=== PATIENT | female | born 1990 | race African-American/Black ===

== ENCOUNTER 2016-08-01 21:34 | Emergency (ER) | payer MEDICAID ==
--- NOTE | 2016-08-01 23:47 | ER Document Report ---
ED Extremity Problem, Lower - General Chief Complaint: Leg Pain Stated Complaint: RIGHT ARM/RIGHT LEG PAIN Time seen by provider: 23:47 Mode of Arrival: Ambulatory Information source: Patient TRAVEL OUTSIDE OF THE [place] IN LAST 30 DAYS: No COUNTRY TRAVELED TO/FROM: [facility] - [facility] Patient complains to provider of: Pain, Swelling Location: Foot Occurred: This morning Onset/Duration: Gradual, Persistent Quality of pain: Achy Severity: Mild Pain Level: 2 Recent injury: No Exacerbated by: Walking Relieved by: Nothing Notes: Patient is a 25-year-old female presenting to the emergency room complaining of lower extremity swelling, and right arm pain that shoots up from the wrist, states he symptoms have been worsening throughout the day today, she denies any new activity, no chest pain or shortness of breath, no recent illness or injury , patient works at a [employer], performs repetitive motion with her hands for approximately 10 hours a day, she has been doing this for about a year now, she denies any specific injury, no history of similar symptoms previously - Related Data Allergies/Adverse Reactions: Sulfa (Sulfonamide Antibiotics) Allergy (Mild, Verified 09/21/15 21:32) unknown Past Medical History - General Information source: Patient - Social History Smoking Status: Current Every Day Smoker Family History: DM, Hypertension, Malignancy, Thyroid Disfunction Patient has suicidal ideation: No Patient has homicidal ideation: No - Past Medical History Cardiac Medical History: Reports: Hx Heart Murmur Neurological Medical History: Reports: Hx Seizures - as child Renal/ Medical History: Denies: Hx Peritoneal Dialysis Skin Medical History: Reports Hx Cellulitis, Reports Hx MRSA - bilateral axillae Infectious Medical History: Reports: Hx MRSA - Immunizations Immunizations up to date: Yes Hx Diphtheria, Pertussis, Tetanus Vaccination: Yes - january 2015 Review of Systems - Review of Systems Constitutional: No symptoms reported EENT: No symptoms reported Cardiovascular: Edema Respiratory: No symptoms reported Gastrointestinal: No symptoms reported Genitourinary: No symptoms reported Female Genitourinary: No symptoms reported Musculoskeletal: See HPI Skin: No symptoms reported Hematologic/Lymphatic: No symptoms reported Neurological/Psychological: No symptoms reported -: Yes All other systems reviewed and negative Physical Exam - Vital signs Vitals: Temp Pulse Resp BP Pulse Ox 97.6 F 87 20 140/86 H 99 08/01/16 21:48 08/01/16 21:48 08/01/16 21:48 08/01/16 21:48 08/01/16 21:48 Interpretation: Normal - General General appearance: Appears well, Alert - HEENT Head: Normocephalic, Atraumatic Eyes: Normal Pupils: PERRL - Respiratory Respiratory status: No respiratory distress Chest status: Nontender Breath sounds: Normal Chest palpation: Normal - Cardiovascular Rhythm: Regular Heart sounds: Normal auscultation Murmur: No - Abdominal Inspection: Normal Distension: No distension Bowel sounds: Normal Tenderness: Nontender Organomegaly: No organomegaly - Back Back: Normal, Nontender - Extremities General upper extremity: Normal inspection, Normal color, Normal temperature General lower extremity: Normal inspection, Nontender, Edema - Trace, Normal color, Normal ROM, Normal temperature, Normal weight bearing. No: Ceasar's sign Forearm: Tender - Patient reports pain with range of motion testing and tenderness over the ventral surface of the wrist, positive Tinel sign - Neurological Neuro grossly intact: Yes Cognition: Normal Orientation: AAOx4 Shi Coma Scale Eye Opening: Spontaneous Shi Coma Scale Verbal: Oriented Shi Coma Scale Motor: Obeys Commands Shi Coma Scale Total: 15 Speech: Normal Motor strength normal: LUE, RUE, LLE, RLE Sensory: Normal - Psychological Associated symptoms: Normal affect, Normal mood - Skin Skin Temperature: Warm Skin Moisture: Dry Skin Color: Normal Course - Re-evaluation Re-evalutation: 08/02/16 01:22 Laboratory results were discussed with patient at bedside which are relatively unremarkable, she has trace lower extremity edema, at best, and signs and symptoms of the right upper extremity are consistent with carpal tunnel, she is placed in a cockup wrist splint and provided with prescription for Motrin and information for follow-up with orthopedics, advised to return if symptoms worsen , patient acknowledges understanding and agreement with this plan - Vital Signs Vital signs: Temp Pulse Resp BP Pulse Ox 97.6 F 87 20 140/86 H 99 08/01/16 21:48 08/01/16 21:48 08/01/16 21:48 08/01/16 21:48 08/01/16 21:48 - Laboratory Result Diagrams: 08/02/16 00:06 08/02/16 00:06 Laboratory results interpreted by me: 08/02/16 00:06 Chloride 108 H Glucose 116 H Procedures - Immobilization Right Wrist Time completed: 01:18 Pre-Proc Neuro Vasc Exam: Normal Immobilizer type: Cock-up Performed by: RN Post-Proc Neuro Vasc Exam: Normal Alignment checked and good: Yes Discharge - Discharge Clinical Impression: Right forearm pain, Peripheral edema Condition: Stable Disposition: HOME, SELF-CARE Instructions: Edema, Peripheral ([facility]), Carpal Tunnel Syndrome ([facility]), Anti- Inflammatory Medication ([facility]) Additional Instructions: Follow up with your primary care provider in one to 2 days. Return to the emergency room immediately if symptoms worsen or any additional concerns. Follow-up with an orthopedic surgeon within the next week. Wear splint for comfort. Prescriptions: Ibuprofen [Motrin 600 Mg Tablet] 600 mg PO TID #30 tablet Forms: Return to Work Referrals: BETH SEAY MD [Primary Care Provider] - Follow up as needed GAUTAM HERNANDEZ DO [ACTIVE STAFF] - Follow up as needed
[2016-08-02 00:17] LABS: ABSOLUTE EOSINOPHILS # (AUTO) 0.4 10^3/uL (0.0-0.6); ABSOLUTE LYMPHOCYTES (AUTO) 3.5 10^3/uL (0.5-4.7); ABSOLUTE MONOCYTES (AUTO) 0.6 10^3/uL (0.1-1.4); ABSOLUTE NEUT (AUTO) 4.8 10^3/uL (1.7-8.2); BASOPHILS % (AUTO) 0.5 % (0-2); EOSINOPHILS % (AUTO) 4.4 % (0-6); HEMATOCRIT 38.8 % (36.0-47.0); HEMOGLOBIN 12.5 g/dL (12.0-15.5); HGB HCT DIFFERENCE -1.3; LYMPHOCYTES % (AUTO) 37.2 % (13-45); MEAN CORPUSCULAR HEMOGLOBIN 28.4 pg (27.0-33.4); MEAN CORPUSCULAR HGB CONC 32.2 g/dL (32.0-36.0); MEAN CORPUSCULAR VOLUME 88 fl (80-97); MONOCYTES % (AUTO) 6.8 % (3-13); RED BLOOD COUNT 4.41 10^6/uL (3.72-5.28); RED CELL DISTRIBUTION WIDTH 13.5 % (11.5-14.0); SEGMENTED NEUTROPHILS % (AUTO) 51.1 % (42-78); WHITE BLOOD COUNT 9.4 10^3/uL (4.0-10.5)
[2016-08-02 00:47] LABS: ALANINE AMINOTRANSFERASE 23 U/L (9-52); ALBUMIN 3.9 g/dL (3.5-5.0); ALKALINE PHOSPHATASE 52 U/L (38-126); ANION GAP 12 (5-19); ASPARTATE AMINO TRANSFERASE 18 U/L (14-36); BILIRUBIN,TOTAL 0.3 mg/dL (0.2-1.3); BLOOD UREA NITROGEN 18 mg/dL (7-20); CALCIUM 9.6 mg/dL (8.4-10.2); CARBON DIOXIDE 23 mmol/L (22-30); CHLORIDE 108 mmol/L (98-107); CREATININE RESULT 0.84 mg/dL (0.52-1.25); GLUCOSE 116 mg/dL (75-110); POTASSIUM 4.1 mmol/L (3.6-5.0); TOTAL PROTEIN 6.6 g/dL (6.3-8.2)
[2016-08-02 00:56] LABS: APPEARANCE,URINE SLIGHTLY-CLOUDY; BILIRUBIN,URINE NEGATIVE (NEGATIVE); GLUCOSE, URINE NEGATIVE (NEGATIVE); KETONES,URINE NEGATIVE (NEGATIVE); LEUKOCYTE ESTERASE,URINE NEGATIVE (NEGATIVE); NITRITE,URINE NEGATIVE (NEGATIVE); PROTEIN,URINE NEGATIVE (NEGATIVE); URINE SPECIFIC GRAVITY 1.031; UROBILINOGEN,URINE NEGATIVE mg/dL (<2.0)
[2016-08-02 01:33] VITALS: BP 120/68
== END 2016-08-02 01:31 | disposition home or self-care (01) ==
LOC: ER 21:34
PROC: 2W3CX1Z Immobilization of Right Lower Arm using Splint (ICD-10-PCS; principal; 2016-08-01)
DX: M79.631 Pain in right forearm (principal); M79.89 Other specified soft tissue disorders; M79.604 Pain in right leg; F17.200 Nicotine dependence, unspecified, uncomplicated; Z88.2 Allergy status to sulfonamides; Z86.14 Personal history of Methicillin resistant Staphylococcus aureus infection
CPT/HCPCS: 99283; 36415; 85025; 81025; 80053; 81001; L3984

== ENCOUNTER 2016-09-15 00:37 | Emergency (ER) | payer MEDICAID ==
[2016-09-15] MEDS ORDERED: OXYCODONE-ACETAMINOPHEN 5-325 MG TABLET PO ONE (00:55)
--- NOTE | 2016-09-15 00:58 | ER Document Report ---
ED Medical Screen (RME) - General Stated Complaint: ABSCESS Notes: 26-year-old female, chief complaint of 2 weeks of worsening symptoms in her armpits, states she has two abscesses under each arm. States this is a recurrent problem. Denies fever/chills/nausea/vomiting. TRAVEL OUTSIDE OF THE [place] IN LAST 30 DAYS: No COUNTRY TRAVELED TO/FROM: [facility] - Related Data Allergies/Adverse Reactions: Sulfa (Sulfonamide Antibiotics) Allergy (Mild, Verified 09/21/15 21:32) unknown Past Medical History - Past Medical History Cardiac Medical History: Reports: Hx Heart Murmur Neurological Medical History: Reports: Hx Seizures - as child Renal/ Medical History: Denies: Hx Peritoneal Dialysis Skin Medical History: Reports Hx Cellulitis, Reports Hx MRSA - bilateral axillae Infectious Medical History: Reports: Hx MRSA - Immunizations Immunizations up to date: Yes Hx Diphtheria, Pertussis, Tetanus Vaccination: Yes - january 2015 Physical Exam - Vital signs Vitals: Temp Pulse Resp BP Pulse Ox 97.5 F 102 H 16 138/81 H 100 09/15/16 00:53 09/15/16 00:53 09/15/16 00:53 09/15/16 00:53 09/15/16 00:53 - Skin Skin irregularity: other - Tender indurated areas in the armpits, left armpit with small area that appears to be draining Course - Vital Signs Vital signs: Temp Pulse Resp BP Pulse Ox 97.5 F 102 H 16 138/81 H 100 09/15/16 00:53 09/15/16 00:53 09/15/16 00:53 09/15/16 00:53 09/15/16 00:53
[2016-09-15] MEDS ORDERED: LIDOCAINE 1% INJ-PF (10 MG/ML) 30 ML SDV INJ ONE (04:03)
--- NOTE | 2016-09-15 05:09 | ER Document Report ---
ED Skin Rash/Insect Bite/Abscs - General Chief Complaint: Abscess Stated Complaint: ABSCESS Notes: 26-year-old female, chief complaint of 2 weeks of worsening symptoms in her armpits, states she has two abscesses under each arm. States this is a recurrent problem. Patient states she has seen a surgeon, states they declined performing surgery, states she has a second opinion upcoming on referral. Past medical history of hidradenitis suppurativa. Patient denies Fever/chills/nausea /vomiting. Patient denies history of diabetes. TRAVEL OUTSIDE OF THE [place] IN LAST 30 DAYS: No COUNTRY TRAVELED TO/FROM: [facility] - Related Data Allergies/Adverse Reactions: Sulfa (Sulfonamide Antibiotics) Allergy (Mild, Verified 09/21/15 21:32) unknown Past Medical History - General Information source: Patient - Social History Smoking Status: Current Every Day Smoker Chew tobacco use (# tins/day): No Frequency of alcohol use: None Drug Abuse: None Lives with: Family Family History: DM, Hypertension, Malignancy, Thyroid Disfunction Patient has suicidal ideation: No Patient has homicidal ideation: No - Past Medical History Cardiac Medical History: Reports: Hx Heart Murmur Neurological Medical History: Reports: Hx Seizures - as child Renal/ Medical History: Denies: Hx Peritoneal Dialysis Skin Medical History: Reports Hx Cellulitis, Reports Hx MRSA - bilateral axillae Infectious Medical History: Reports: Hx MRSA Surgical Hx: Negative - Immunizations Immunizations up to date: Yes Hx Diphtheria, Pertussis, Tetanus Vaccination: Yes - january 2015 Review of Systems - Review of Systems Constitutional: No symptoms reported EENT: No symptoms reported Cardiovascular: No symptoms reported Respiratory: No symptoms reported Gastrointestinal: No symptoms reported Genitourinary: No symptoms reported Female Genitourinary: No symptoms reported Musculoskeletal: No symptoms reported Skin: See HPI Hematologic/Lymphatic: No symptoms reported Neurological/Psychological: No symptoms reported Physical Exam - Vital signs Vitals: Temp Pulse Resp BP Pulse Ox 97.5 F 102 H 16 138/81 H 100 09/15/16 00:53 09/15/16 00:53 09/15/16 00:53 09/15/16 00:53 09/15/16 00:53 Interpretation: Normal - General General appearance: Appears well, Alert In distress: None - HEENT Head: Normocephalic, Atraumatic Eyes: Normal Pupils: PERRL - Respiratory Respiratory status: No respiratory distress Chest status: Nontender Breath sounds: Normal Chest palpation: Normal - Cardiovascular Rhythm: Regular Heart sounds: Normal auscultation Murmur: No - Abdominal Inspection: Normal Distension: No distension Bowel sounds: Normal Tenderness: Nontender Organomegaly: No organomegaly - Back Back: Normal, Nontender - Extremities General upper extremity: Normal inspection, Nontender, Normal color, Normal ROM , Normal temperature General lower extremity: Normal inspection, Nontender, Normal color, Normal ROM , Normal temperature, Normal weight bearing. No: Ceasar's sign - Neurological Neuro grossly intact: Yes Cognition: Normal Orientation: AAOx4 [place] Coma Scale Eye Opening: Spontaneous Shi Coma Scale Verbal: Oriented Shi Coma Scale Motor: Obeys Commands [place] Coma Scale Total: 15 Speech: Normal Motor strength normal: LUE, RUE, LLE, RLE Sensory: Normal - Psychological Associated symptoms: Normal affect, Normal mood - Skin Skin Temperature: Warm Skin Moisture: Dry Skin Color: Normal Skin irregularity: other - Multiple areas of scarring in both armpits, there are 2 indurated, tender, and mildly erythematous areas in both armpits, one in the left armpit appears to have recently drained, no erythema surrounding these areas, no other abnormalities noted Course - Re-evaluation Re-evalutation: Abscess is clean, drained, packed. Patient declines antibiotics, no cellulitis indicating antibiotics. Patient has a follow-up with surgery. Discussed return precautions, patient states understanding and agreement. - Vital Signs Vital signs: Temp Pulse Resp BP Pulse Ox 98.2 F 89 16 122/76 99 09/15/16 05:10 09/15/16 05:10 09/15/16 05:10 09/15/16 05:10 09/15/16 05:10 Procedures - Incision and Drainage left armpit Type: Multiple Anesthetic type: 1% Lidocaine mL's of anesthetic: 5 Blade size: 11 I&D procedure: Iodoform packing placed, Sterile dressing applied, Other - Surgical cleanser Incision Method: Incision made by scalpel Notes: Both small abscesses cleaned with surgical cleanser, use lidocaine, incision performed scalpel, a small amount of purulent drainage from each, irrigated, packed with iodoform, sterile dressing applied. right armpit Type: Multiple Anesthetic type: 1% Lidocaine mL's of anesthetic: 5 Blade size: 11 I&D procedure: Iodoform packing placed, Sterile dressing applied, Other - Surgical cleanser Incision Method: Incision made by scalpel Notes: Both small abscesses cleaned with surgical cleanser, use lidocaine, incision performed scalpel, a small amount of purulent drainage from each, irrigated, packed with iodoform, sterile dressing applied. Discharge - Discharge Clinical Impression: Abscess Condition: Stable Disposition: HOME, SELF-CARE Additional Instructions: Remove packing in 2 days, clean gently with soap and water, avoid soaking. Follow-up with your surgical referral for additional management. Return to the emergency department for any concerning or worsening symptoms including redness, swelling, fever, etc. Prescriptions: Oxycodone HCl/Acetaminophen [Percocet 5-325 mg Tablet] 1 - 2 tab PO Q4H PRN #15 tablet PRN Reason: Referrals: CARLOS LONGO MD [Primary Care Provider] - Follow up as needed
[2016-09-15 05:23] VITALS: BP 122/76
== END 2016-09-15 05:12 | disposition home or self-care (01) ==
LOC: ER 00:37
PROC: 0H9CXZZ Drainage of Left Upper Arm Skin, External Approach (ICD-10-PCS; principal; 2016-09-15)
PROC: 0H9BXZZ Drainage of Right Upper Arm Skin, External Approach (ICD-10-PCS; 2016-09-15)
DX: L02.412 Cutaneous abscess of left axilla (principal); L02.411 Cutaneous abscess of right axilla; F17.200 Nicotine dependence, unspecified, uncomplicated; Z86.14 Personal history of Methicillin resistant Staphylococcus aureus infection; Z88.2 Allergy status to sulfonamides
CPT/HCPCS: 99283; 10060; J3490

== ENCOUNTER 2016-11-07 18:21 | Emergency (ER) | payer MEDICAID ==
--- NOTE | 2016-11-07 19:17 | ER Document Report ---
ED Medical Screen (RME) - General Chief Complaint: Abscess Stated Complaint: LEG PAIN Notes: Patient has an abscess in her left axilla that's been there for about a week and it partially drained yesterday. Also has some pain in her right leg. TRAVEL OUTSIDE OF THE [place] IN LAST 30 DAYS: No COUNTRY TRAVELED TO/FROM: [facility] - Related Data Allergies/Adverse Reactions: Sulfa (Sulfonamide Antibiotics) Allergy (Mild, Verified 11/07/16 18:31) unknown Past Medical History - Past Medical History Cardiac Medical History: Reports: Hx Heart Murmur Neurological Medical History: Reports: Hx Seizures - as child Renal/ Medical History: Denies: Hx Peritoneal Dialysis Skin Medical History: Reports Hx Cellulitis, Reports Hx MRSA - bilateral axillae Infectious Medical History: Reports: Hx MRSA - Immunizations Immunizations up to date: Yes Hx Diphtheria, Pertussis, Tetanus Vaccination: Yes - january 2015 Physical Exam - Vital signs Vitals: Temp Pulse Resp BP Pulse Ox 97.7 F 88 20 130/75 H 100 11/07/16 18:29 11/07/16 18:29 11/07/16 18:29 11/07/16 18:29 11/07/16 18:29 Course - Vital Signs Vital signs: Temp Pulse Resp BP Pulse Ox 97.7 F 88 20 130/75 H 100 11/07/16 18:29 11/07/16 18:29 11/07/16 18:29 11/07/16 18:29 11/07/16 18:29
--- NOTE | 2016-11-07 20:41 | ER Document Report ---
HPI - HPI Patient complains to provider of: left axilla abscess, bug bite Onset: Other - 3 days Pain Level: 3 Context: 26-year-old female complaining of recur and left axilla abscess. She has hidradenitis suppurativa that the surgeon will not eradicate was surgery yet. She also woke up with a bug bite which is inflamed in the posterior right calf. No fever or chills. Associated Symptoms: None Exacerbated by: Movement Relieved by: Denies Similar symptoms previously: No Recently seen / treated by doctor: No - ROS ROS below otherwise negative: Yes Systems Reviewed and Negative: Yes All other systems reviewed and negative - REPRODUCTIVE Reproductive: DENIES: : - DERM Skin Color: Normal Past Medical History - General Information source: Patient - Social History Smoking Status: Unknown if Ever Smoked Frequency of alcohol use: None Drug Abuse: None Lives with: Family Family History: DM, Hypertension, Malignancy, Thyroid Disfunction Patient has suicidal ideation: No Patient has homicidal ideation: No - Past Medical History Cardiac Medical History: Reports: Hx Heart Murmur Neurological Medical History: Reports: Hx Seizures - as child Renal/ Medical History: Denies: Hx Peritoneal Dialysis Skin Medical History: Reports Hx Cellulitis, Reports Hx MRSA - bilateral axillae Infectious Medical History: Reports: Hx MRSA - Immunizations Immunizations up to date: Yes Hx Diphtheria, Pertussis, Tetanus Vaccination: Yes - january 2015 Vertical Provider Document - CONSTITUTIONAL Agree With Documented VS: Yes Exam Limitations: No Limitations - INFECTION CONTROL TRAVEL OUTSIDE OF THE [place] IN LAST 30 DAYS: No COUNTRY TRAVELED TO[facility]FROM: [facility] - HEENT HEENT: Normocephalic - NECK Neck: Supple - RESPIRATORY O2 Sat by Pulse Oximetry: 100 - MUSCULOSKELETAL/EXTREMETIES Musculoskeletal/Extremeties: MAEW, FROM, Tender - pink inflamed (itchy) 3 tiny punctures posterior left thigh, bactroban applied, bandaids - NEURO Level of Consciousness: Awake, Alert - DERM Integumentary: Warm, Dry, Abscess - left axilla Course - Vital Signs Vital signs: Temp Pulse Resp BP Pulse Ox 97.7 F 88 20 130/75 H 100 11/07/16 18:29 11/07/16 18:29 11/07/16 18:29 11/07/16 18:29 11/07/16 18:29 Procedures - Incision and Drainage Left Upper Arm Time completed: 21:51 - left axilla Type: Simple Anesthetic type: 1% Lidocaine mL's of anesthetic: 3 Blade size: 11 I&D procedure: Betadine prep applied Incision Method: Incision made by scalpel Amount/type of drainage: moderate pus and blood Notes: 11/07/16 21:52 irrigated with NS, then packed with corner of 4x4 gauze Discharge - Discharge Clinical Impression: I & D left axilla abscess, inflamed bug bite left calf Condition: Good Disposition: HOME, SELF-CARE Instructions: Abscess ([facility]), Post Incision and Drainage, Doxycycline ([facility]), Warm Packs ([facility]), Anti-Inflammatory Medication ([facility]) Additional Instructions: warm compress revisit the general surgeon for evaluation bactroban ointment to posterior calf three times per day for 3 days to er if worse Please complete the patient satisfaction survey if you get one, and return it.. If you do not receive a survey, then you can go to the [facility] website, [email or web address] and place your comments about your very good care. Thank you very much. It was a pleasure being your medical provider today. Prescriptions: Ibuprofen [Motrin 800 mg Tablet] 800 mg PO Q8HP PRN #30 tablet PRN Reason: Doxycycline Hyclate 100 mg PO BID #20 capsule Forms: Return to Work
[2016-11-07] MEDS ORDERED: MUPIROCIN 2% OINTMENT 22 GM TP ONE (20:46)
[2016-11-07] MEDS ORDERED: LIDOCAINE 4%/TETRACAINE 0.5%/EPI 0.18% 5 ML TOPICAL SOLN TOP ONE (20:46)
[2016-11-07] MEDS ORDERED: ONDANSETRON 4 MG TAB.RAPDIS PO ONE (20:46)
[2016-11-07] MEDS ORDERED: DOXYCYCLINE HYCLATE 100 MG TABLET PO ONE (20:47)
[2016-11-07] MEDS ORDERED: IBUPROFEN 800 MG TABLET PO ONE (20:49)
[2016-11-07] MEDS ORDERED: HYDROCODONE/ACETAMINOPHEN 5-325 MG 6 TAB/DSPK PO PRN (21:43)
[2016-11-07 22:12] VITALS: BP 125/72
== END 2016-11-07 22:00 | disposition home or self-care (01) ==
LOC: ER 18:21
PROC: 0H9CXZZ Drainage of Left Upper Arm Skin, External Approach (ICD-10-PCS; principal; 2016-11-07)
DX: L02.412 Cutaneous abscess of left axilla (principal); S80.862A Insect bite (nonvenomous), left lower leg, initial encounter; W57.XXXA Bitten or stung by nonvenomous insect and other nonvenomous arthropods, initial encounter
CPT/HCPCS: 99283; 10060; J3490 ×4; S0119

== ENCOUNTER 2017-01-15 01:11 | Emergency (ER) | payer SELFPAY ==
--- NOTE | 2017-01-15 03:09 | ER Document Report ---
ED Eye Complaint - General Chief Complaint: Eye Problem Stated Complaint: BLURRED VISION AND NAUSEA Time Seen by Provider: 01/15/17 03:03 Notes: Patient is a 26-year-old female that comes emergency department for chief complaint of left eye abnormality. She states that she was watching TV when suddenly she felt discomfort in the left eye and felt like her vision was blurry , she states that she noticed that the light was bothering her eye and she started to have a throbbing pain behind her left eye. She states that this has improved somewhat but anytime light is shining in her eye she gets the same symptoms. She denies lost vision, just blurriness and discomfort. She does not wear visual correction except glasses occasionally. She denies having this previously. She denies any injury, focal numbness or weakness, denies nausea or vomiting, denies any other symptoms. TRAVEL OUTSIDE OF THE [place] IN LAST 30 DAYS: No COUNTRY TRAVELED TO/FROM: [facility] - Related Data Allergies/Adverse Reactions: Sulfa (Sulfonamide Antibiotics) Allergy (Mild, Verified 11/07/16 18:31) unknown Past Medical History - General Information source: Patient - Social History Smoking Status: Never Smoker Frequency of alcohol use: None Lives with: Family Family History: DM, Hypertension, Malignancy, Thyroid Disfunction Patient has suicidal ideation: No Patient has homicidal ideation: No - Past Medical History Cardiac Medical History: Reports: Hx Heart Murmur Neurological Medical History: Reports: Hx Seizures - as child Renal/ Medical History: Denies: Hx Peritoneal Dialysis Skin Medical History: Reports Hx Cellulitis, Reports Hx MRSA - bilateral axillae Infectious Medical History: Reports: Hx MRSA Surgical Hx: Negative - Immunizations Immunizations up to date: Yes Hx Diphtheria, Pertussis, Tetanus Vaccination: Yes - january 2015 Review of Systems - Review of Systems Constitutional: No symptoms reported EENT: See HPI Cardiovascular: No symptoms reported Respiratory: No symptoms reported Gastrointestinal: No symptoms reported Genitourinary: No symptoms reported Female Genitourinary: No symptoms reported Musculoskeletal: No symptoms reported Skin: No symptoms reported Hematologic/Lymphatic: No symptoms reported Neurological/Psychological: See HPI Physical Exam - Vital signs Vitals: Temp Pulse Resp BP Pulse Ox 98.5 F 85 16 124/75 97 01/15/17 01:46 01/15/17 01:46 01/15/17 01:46 01/15/17 01:46 07/01/17 01:46 Interpretation: Normal - General General appearance: Anxious In distress: None - HEENT Head: Normocephalic, Atraumatic Eyes: Normal Conjunctiva: Other - Section of the left conjunctiva, otherwise unremarkable, no periorbital edema, no discharge Cornea: Normal, Other - Small chunks of makeup located underneath both upper and lower eyelids, these were removed after application of tetracaine with Q- tip. Negative Imani sign, no embedded foreign body, no fluorescein uptake, normal exam otherwise. No: Corneal abrasion, Corneal ulcer, Dendrite Eyelashes: Normal Pupils: PERRL Corrective lenses worn: Yes - Glasses Anterior chamber: Normal. No: Hyphema Ears: Normal External canal: Normal Tympanic membrane: Normal Sinus: Normal Nasal: Normal Mouth/Lips: Normal Mucous membranes: Normal Pharynx: Normal Neck: Normal - Respiratory Respiratory status: No respiratory distress Chest status: Nontender Breath sounds: Normal. No: Decreased air movement, Wheezing Chest palpation: Normal - Cardiovascular Rhythm: Regular Heart sounds: Normal auscultation Murmur: No - Abdominal Inspection: Normal Distension: No distension Bowel sounds: Normal Tenderness: Nontender Organomegaly: No organomegaly - Back Back: Normal, Nontender - Extremities General upper extremity: Normal inspection, Nontender, Normal color, Normal ROM , Normal temperature General lower extremity: Normal inspection, Nontender, Normal color, Normal ROM , Normal temperature, Normal weight bearing. No: Ceasar's sign - Neurological Neuro grossly intact: Yes Cognition: Normal Orientation: AAOx4 Shi Coma Scale Eye Opening: Spontaneous [place] Coma Scale Verbal: Oriented [place] Coma Scale Motor: Obeys Commands [place] Coma Scale Total: 15 Speech: Normal Motor strength normal: LUE, RUE, LLE, RLE Sensory: Normal - Psychological Associated symptoms: Normal affect, Normal mood - Skin Skin Temperature: Warm Skin Moisture: Dry Skin Color: Normal Course - Re-evaluation Re-evalutation: Multiple pieces of old dried makeup removed from patient eye and underneath the eyelids, afterwards patient had significant improvement of symptoms, no longer having difficulty opening the left eye, however she still reports a headache behind her left eye and some nausea and photophobia. Patient is not in any distress, has a normal neurological exam, she actually appears quite comfortable. Treated with migraine cocktail based on her symptoms. Evaluation symptoms completely resolved, headache resolved, pain resolved, photophobia resolved, patient denying any blurry vision. Patient smiling and well-appearing. She states she is ready to leave. I discussed return precautions including worsening symptoms with her vision or her eye, discussed concerning headaches, discussed follow-up, patient will be given Fioricet for outpatient treatment if needed, patient states satisfaction in agreement. - Vital Signs Vital signs: Temp Pulse Resp BP Pulse Ox 97.9 F 65 15 139/63 H 97 01/15/17 06:00 01/15/17 06:00 01/15/17 06:00 01/15/17 06:00 01/15/17 06:00 Discharge - Discharge Clinical Impression: Headache Qualifiers: Headache type: unspecified Headache chronicity pattern: acute headache Intractability: not intractable Qualified Code(s): R51 - Headache Eye discomfort Qualifiers: Laterality: left Qualified Code(s): H57.12 - Ocular pain, left eye Condition: Stable Disposition: HOME, SELF-CARE Additional Instructions: There were several "of makeup removed from underneath your eyelid in the left eye, no other abnormality is seen. Examination, symptoms, and response to treatment most consistent with a migraine headache. Follow-up with primary care for additional management, take the Fioricet prescribed if needed, return to emergency department for any concerning symptoms including loss of vision, severe headache, vomiting, fever, eye swelling, discolored discharge from the eye, or any other concerning symptoms. Prescriptions: Butalb/Acetaminophen/Caffeine [Fioricet (50-325-40 mg) Tablet] 1 tab PO Q4HP PRN #30 tab PRN Reason:
[2017-01-15] MEDS ORDERED: METOCLOPRAMIDE HCL INJ/PF 10 MG/2 ML SDV IV ONE (04:15)
[2017-01-15] MEDS ORDERED: DIPHENHYDRAMINE HCL 50 MG/ML VIAL IV ONE (04:15)
[2017-01-15] MEDS ORDERED: KETOROLAC TROMETHAMINE INJ/PF 30 MG/1 ML SDV IV ONE (04:15)
[2017-01-15] MEDS ORDERED: NORMAL SALINE 1000 ML 1,000 ML IV ONE (04:16)
[2017-01-15 06:12] VITALS: BP 139/63
== END 2017-01-15 06:12 | disposition home or self-care (01) ==
LOC: ER 01:11
DX: R51 Headache (principal); H57.12 Ocular pain, left eye; H53.8 Other visual disturbances; Z88.2 Allergy status to sulfonamides; Z86.14 Personal history of Methicillin resistant Staphylococcus aureus infection
CPT/HCPCS: 99283; 96374; 96375; J1200; J1885; J2765; J7030

== ENCOUNTER 2017-02-15 18:30 | Emergency (ER) | payer MEDICAID ==
--- NOTE | 2017-02-15 18:54 | ER Document Report ---
ED Medical Screen (RME) - General Chief Complaint: Abdominal pain, vaginal spotting Stated Complaint: ABDOMINAL PAIN, VAGINAL BLEEDING Time Seen by Provider: 02/15/17 18:52 Notes: Patient states that she is having lower abdominal cramping and episode of vaginal bleeding today. She states she is 2 weeks late on her menstrual cycle. She states she has taken 2 home tests and one was positive and one was negative. She also had some nausea. TRAVEL OUTSIDE OF THE [place] IN LAST 30 DAYS: No COUNTRY TRAVELED TO/FROM: [facility] - Related Data Allergies/Adverse Reactions: Sulfa (Sulfonamide Antibiotics) Allergy (Mild, Verified 11/07/16 18:31) unknown Past Medical History - Past Medical History Cardiac Medical History: Reports: Hx Heart Murmur Neurological Medical History: Reports: Hx Seizures - as child Renal/ Medical History: Denies: Hx Peritoneal Dialysis Skin Medical History: Reports Hx Cellulitis, Reports Hx MRSA - bilateral axillae Infectious Medical History: Reports: Hx MRSA - Immunizations Immunizations up to date: Yes Hx Diphtheria, Pertussis, Tetanus Vaccination: Yes - january 2015 Physical Exam - Vital signs Vitals: Temp Pulse Resp BP Pulse Ox 98.3 F 84 16 132/90 H 100 02/15/17 18:34 02/15/17 18:34 02/15/17 18:34 02/15/17 18:34 02/15/17 18:34 Course - Vital Signs Vital signs: Temp Pulse Resp BP Pulse Ox 98.3 F 84 16 132/90 H 100 02/15/17 18:34 02/15/17 18:34 02/15/17 18:34 02/15/17 18:34 02/15/17 18:34
[2017-02-15 19:49] LABS: ABSOLUTE EOSINOPHILS # (AUTO) 0.3 10^3/uL (0.0-0.6); ABSOLUTE LYMPHOCYTES (AUTO) 2.8 10^3/uL (0.5-4.7); ABSOLUTE MONOCYTES (AUTO) 0.6 10^3/uL (0.1-1.4); ABSOLUTE NEUT (AUTO) 5.7 10^3/uL (1.7-8.2); BASOPHILS % (AUTO) 0.4 % (0-2); EOSINOPHILS % (AUTO) 3.5 % (0-6); HEMATOCRIT 41.9 % (36.0-47.0); HEMOGLOBIN 14.2 g/dL (12.0-15.5); HGB HCT DIFFERENCE 0.7; LYMPHOCYTES % (AUTO) 29.8 % (13-45); MEAN CORPUSCULAR HEMOGLOBIN 29.4 pg (27.0-33.4); MEAN CORPUSCULAR HGB CONC 33.8 g/dL (32.0-36.0); MEAN CORPUSCULAR VOLUME 87 fl (80-97); MONOCYTES % (AUTO) 6.2 % (3-13); RED BLOOD COUNT 4.83 10^6/uL (3.72-5.28); RED CELL DISTRIBUTION WIDTH 13.6 % (11.5-14.0); SEGMENTED NEUTROPHILS % (AUTO) 60.1 % (42-78); WHITE BLOOD COUNT 9.4 10^3/uL (4.0-10.5)
[2017-02-15 19:59] LABS: APPEARANCE,URINE SLIGHTLY-CLOUDY; BILIRUBIN,URINE NEGATIVE (NEGATIVE); GLUCOSE, URINE NEGATIVE (NEGATIVE); KETONES,URINE NEGATIVE (NEGATIVE); LEUKOCYTE ESTERASE,URINE NEGATIVE (NEGATIVE); NITRITE,URINE NEGATIVE (NEGATIVE); PROTEIN,URINE NEGATIVE (NEGATIVE); URINE SPECIFIC GRAVITY 1.026; UROBILINOGEN,URINE NEGATIVE mg/dL (<2.0)
--- NOTE | 2017-02-15 20:07 | ER Document Report ---
ED GI/ - General Chief Complaint: Abdominal pain, vaginal spotting Stated Complaint: ABDOMINAL PAIN, VAGINAL BLEEDING Time Seen by Provider: 02/15/17 18:52 Notes: Patient is a 26-year-old female who presents emergency department complaining of vaginal bleeding that started today. Patient states that she is due for her. She is concerned that she is . Patient admits to lower pelvic cramping. He denies any vaginal discharge, vaginal irritation, diarrhea, constipation, pyuria, hematuria, urinary frequency. Patient otherwise healthy denies any primary care physician. TRAVEL OUTSIDE OF THE [place] IN LAST 30 DAYS: No COUNTRY TRAVELED TO/FROM: [facility] - Related Data Allergies/Adverse Reactions: Sulfa (Sulfonamide Antibiotics) Allergy (Mild, Verified 02/15/17 21:54) unknown Past Medical History - Social History Smoking Status: Current Every Day Smoker Family History: DM, Hypertension, Malignancy, Thyroid Disfunction - Past Medical History Cardiac Medical History: Reports: Hx Heart Murmur Neurological Medical History: Reports: Hx Seizures - as child Renal/ Medical History: Denies: Hx Peritoneal Dialysis Skin Medical History: Reports Hx Cellulitis, Reports Hx MRSA - bilateral axillae Infectious Medical History: Reports: Hx MRSA - Immunizations Immunizations up to date: Yes Hx Diphtheria, Pertussis, Tetanus Vaccination: Yes - january 2015 Review of Systems - Review of Systems Constitutional: No symptoms reported Genitourinary: See HPI -: Yes All other systems reviewed and negative Physical Exam - Vital signs Vitals: Temp Pulse Resp BP Pulse Ox 98.3 F 84 16 132/90 H 100 02/15/17 18:34 02/15/17 18:34 02/15/17 18:34 02/15/17 18:34 02/15/17 18:34 - Notes Notes: PHYSICAL EXAM GENERAL: Alert, interacts well. LUNGS: Clear to auscultation bilaterally, no wheezes, rales, or rhonchi. No respiratory distress. HEART: Regular rate and rhythm. No murmurs, gallops, or rubs. ABDOMEN: Soft, nondistended, nontender. No guarding, rebound, or rigidity.. Bowel sounds present in all 4 quadrants. FEMALE : Normal external exam. No evidence of lesions, lacerations, bruising or vesicles. Speculum exam normal cervix closed. No evidence of vaginal discharge with odor. No evidence of lesions. No vaginal bleeding. Bimanual exam normal no cervical motion tenderness. No adnexal mass or adnexal tenderness. EXTREMITIES: Moves all 4 extremities spontaneously. No edema, radial and dorsalis pedis pulses 2/4 bilaterally. No cyanosis. NEUROLOGICAL: Alert and oriented x4. Normal speech. PSYCH: Normal affect, normal mood. SKIN: Warm, dry, normal turgor. No rashes or lesions noted. Course - Re-evaluation Re-evalutation: 02/16/17 02:26 Patient is a 26-year-old female hemodynamic stable, no distress afebrile. Lunch as well as evidence of bacterial vaginitis. Otherwise patient without any evidence of infection noted on CBC. CMP abnormalities. Patient is not . Urinalysis negative for UTI. Physical exam benign for any acute abdominal process. Therefore no additional imaging is required at this time. Patient will be discharged home. After performing a Medical Screening Examination, I estimate there is LOW risk for ACUTE APPENDICITIS, BOWEL OBSTRUCTION, ACUTE CHOLECYSTITIS, PERFORATED DIVERTICULITIS, INCARCERATED HERNIA, PANCREATITIS, PELVIC INFLAMMATORY DISEASE, PERFORATED ULCER, ECTOPIC , or TUBO-OVARIAN ABSCESS, thus I consider the discharge disposition reasonable. Also, there is no evidence or peritonitis , sepsis, or toxicity. I have reevaluated this patient multiple times and no significant life threatening changes are noted. The patient and I have discussed the diagnosis and risks, and we agree with discharging home with close follow-up with the understanding that symptoms and presentations can change. We also discussed returning to the Emergency Department immediately if new or worsening symptoms occur. We have discussed the symptoms which are most concerning (e.g., bloody stool, fever, changing or worsening pain, vomiting) that necessitate immediate return. - Vital Signs Vital signs: Temp Pulse Resp BP Pulse Ox 98.8 F 75 18 132/85 H 100 02/15/17 21:15 02/15/17 21:15 02/15/17 21:15 02/15/17 21:15 02/15/17 21:15 - Laboratory Result Diagrams: 02/15/17 19:35 02/15/17 19:35 Laboratory results interpreted by me: 02/15/17 02/15/17 19:35 19:35 Chloride 109 H Urine Blood LARGE H Discharge - Discharge Clinical Impression: Bacterial vaginitis Condition: Good Disposition: HOME, SELF-CARE Additional Instructions: VAGINITIS: Your exam shows that you have vaginitis, a vaginal infection. The infection can be caused by a many different organisms, including trichomonas or Gardnerella. The usual symptoms are vaginal irritation and discharge. The treatment is usually antibiotics such as Flagyl. Laboratory tests can determine which germ is responsible. Use the medication as prescribed. Because this infection can be transmitted sexually, your sexual partner may need to be checked and treated also. If your physician has not discussed this with you, please check before resuming sexual relations. If a culture shows gonorrhea or chlamydia, the infection must be reported to the health department. Call the doctor if you develop pelvic pain, fever, or problems with urination, or if you don't improve as expected. VAGINOSIS, BACTERIAL: Your exam shows you have bacterial vaginosis. This condition is due to an overgrowth of bacteria in the vagina. Symptoms may include vaginal itching or pain, a smelly discharge, and sometimes burning with urination. Normally this is not transmitted by sexual contact. Vaginosis can be treated with oral or topical antibiotics. Metronidazole ( Flagyl) pills are usually effective. Topical vaginal creams include Cleocin and Metro-Gel. You should avoid sexual contact until your symptoms are all better. Call the doctor if you develop pelvic pain, fever, or problems with urination, or if you don't improve as expected. METRONIDAZOLE: Metronidazole (Flagyl) has been prescribed. This medication is used to kill a type of bacteria called anaerobes, and protozoan parasites such as trichomonas and Giardia. Flagyl often causes a metallic taste in the mouth and mild nausea. Do not use alcohol in any form with Flagyl (including alcohol in medication elixirs). Flagyl interacts with alcohol to cause flushing, palpitations, headache, stomach cramps, and vomiting. Do not use Flagyl if you are taking Antabuse (disulfiram). Call the doctor at once if you develop rash, shortness of breath, itching, or lightheadedness. FOLLOW-UP CARE: If you have been referred to a physician for follow-up care, call the physician s office for an appointment as you were instructed or within the next two days. If you experience worsening or a significant change in your symptoms, notify the physician immediately or return to the Emergency Department at any time for re-evaluation. Prescriptions: Metronidazole [Flagyl 500 mg Tablet] 500 mg PO BID #14 tablet Ondansetron [Zofran Odt 4 mg Tablet] 1 - 2 tab PO Q4H PRN #15 tab.rapdis PRN Reason: For Nausea/Vomiting Referrals: TARAS PERRIN DO [Primary Care Provider] - Follow up as needed
[2017-02-15 20:15] LABS: ALANINE AMINOTRANSFERASE 28 U/L (9-52); ALBUMIN 4.2 g/dL (3.5-5.0); ALKALINE PHOSPHATASE 59 U/L (38-126); ANION GAP 11 (5-19); ASPARTATE AMINO TRANSFERASE 21 U/L (14-36); BILIRUBIN,DIRECT 0.3 mg/dL (0.0-0.4); BILIRUBIN,TOTAL 0.4 mg/dL (0.2-1.3); BLOOD UREA NITROGEN 11 mg/dL (7-20); CARBON DIOXIDE 24 mmol/L (22-30); CHLORIDE 109 mmol/L (98-107); CREATININE RESULT 0.86 mg/dL (0.52-1.25); GLUCOSE 82 mg/dL (75-110); POTASSIUM 4.6 mmol/L (3.6-5.0); SODIUM 143.5 mmol/L (137-145); TOTAL PROTEIN 7.3 g/dL (6.3-8.2)
[2017-02-15] MEDS ORDERED: METRONIDAZOLE 500 MG TABLET PO ONE (21:13)
[2017-02-15] MEDS ORDERED: IBUPROFEN 600 MG TABLET PO ONE (21:13)
[2017-02-15 21:21] VITALS: BP 132/85
[2017-02-15 22:31] LABS: CHLAM PCR NOT DETECTED (NOT DETECT)
== END 2017-02-15 21:31 | disposition home or self-care (01) ==
LOC: ER 18:30
DX: N76.0 Acute vaginitis (principal); B96.89 Other specified bacterial agents as the cause of diseases classified elsewhere; R10.2 Pelvic and perineal pain; F17.200 Nicotine dependence, unspecified, uncomplicated; Z88.2 Allergy status to sulfonamides; Z86.14 Personal history of Methicillin resistant Staphylococcus aureus infection
CPT/HCPCS: 99284; 36415; 87210; 84702; 85025; 80053; 81001; 87491; 87591; J3490 ×2

== ENCOUNTER 2017-03-25 11:25 | Emergency (ER) | payer SELFPAY ==
[2017-03-25] MEDS ORDERED: CLINDAMYCIN HCL 150 MG CAPSULE PO ONE (11:50)
--- NOTE | 2017-03-25 11:53 | ER Document Report ---
HPI - HPI Patient complains to provider of: abscess Onset: Other - 2 wks Onset/Duration: Persistent Quality of pain: Achy Pain Level: 3 Context: Patient complains of abscess to bilateral axilla for the past 2 weeks. Patient states that she has been applying warm compresses without improvement of her symptoms. Patient states she has had this problem over the past 10 years and recently saw a surgeon about this but states that she was told her case was not severe enough to warrant surgery. Associated Symptoms: Other - Axillary abscess Exacerbated by: Movement Relieved by: Denies Similar symptoms previously: Yes Recently seen / treated by doctor: No - ROS ROS below otherwise negative: Yes Systems Reviewed and Negative: Yes All other systems reviewed and negative - CONSTITUTIONAL Constitutional: DENIES: Fever, Chills - REPRODUCTIVE Reproductive: DENIES: : - DERM Skin Color: Normal Notes: Abscess to bilateral axilla Past Medical History - General Information source: Patient - Social History Smoking Status: Current Every Day Smoker Frequency of alcohol use: None Drug Abuse: None Occupation: None Lives with: Family Family History: DM, Hypertension, Malignancy, Thyroid Disfunction - Past Medical History Cardiac Medical History: Reports: Hx Heart Murmur Neurological Medical History: Reports: Hx Seizures - as child Renal/ Medical History: Denies: Hx Peritoneal Dialysis Skin Medical History: Reports Hx Cellulitis, Reports Hx MRSA - bilateral axillae Infectious Medical History: Reports: Hx MRSA Surgical Hx: Negative - Immunizations Immunizations up to date: Yes Hx Diphtheria, Pertussis, Tetanus Vaccination: Yes - january 2015 Vertical Provider Document - CONSTITUTIONAL Agree With Documented VS: Yes Exam Limitations: No Limitations General Appearance: WD/WN, No Apparent Distress - INFECTION CONTROL TRAVEL OUTSIDE OF THE [place] IN LAST 30 DAYS: No - HEENT HEENT: Atraumatic, Normocephalic - NECK Neck: Normal Inspection - RESPIRATORY Respiratory: Breath Sounds Normal, No Respiratory Distress - CARDIOVASCULAR Cardiovascular: Regular Rate, Regular Rhythm - MUSCULOSKELETAL/EXTREMETIES Musculoskeletal/Extremeties: MAEW - NEURO Level of Consciousness: Awake, Alert, Appropriate Motor/Sensory: No Motor Deficit - DERM Integumentary: Warm, Dry Notes: Multiple inflamed indurated lesions to bilateral axilla, patient with hidradenitis supurativa, patient with spontaneously draining lesion to left axilla Discharge - Discharge Clinical Impression: Hidradenitis suppurativa Condition: Stable Disposition: HOME, SELF-CARE Instructions: Abscess ([facility]), Clindamycin ([facility]) Additional Instructions: Return immediately for any new or worsening symptoms Followup with your primary care provider, call tomorrow to make a followup appointment Avoid shaving under your arms Prescriptions: Clindamycin HCl [Cleocin Hcl] 300 mg PO QID #28 capsule Naproxen [Naprosyn 250 Nmg Tablet] 1 tab PO BID #14 tablet Referrals: SHAYNA RIVAS DO [ACTIVE STAFF] - Follow up as needed
[2017-03-25 12:10] VITALS: BP 134/80
== END 2017-03-25 12:02 | disposition home or self-care (01) ==
LOC: ER 11:25
DX: L73.2 Hidradenitis suppurativa (principal); Z86.14 Personal history of Methicillin resistant Staphylococcus aureus infection
CPT/HCPCS: 99282

== ENCOUNTER 2017-09-27 20:37 | Emergency (ER) | payer MEDICAID ==
[2017-09-27] MEDS ORDERED: LIDOCAINE 1% INJ-PF (10 MG/ML) 30 ML SDV INJ ONE (21:42)
[2017-09-27] MEDS ORDERED: HYDROCODONE/ACETAMINOPHEN 5-325 MG TABLET PO ONE (21:42)
--- NOTE | 2017-09-27 21:45 | ER Document Report ---
ED Skin Rash/Insect Bite/Abscs - General Chief Complaint: Abscess Stated Complaint: ABSCESS Time Seen by Provider: 09/27/17 21:34 Mode of Arrival: Ambulatory Information source: Patient TRAVEL OUTSIDE OF THE [place] IN LAST 30 DAYS: No - HPI Patient complains to provider of: Tender/swollen area Onset: Last week Notes: Patient is here with complaints of left axillary abscess. The patient has a history of frequent abscesses to this axilla. She states that she has seen a surgeon in the past, but that he does not want to do surgery. She states that she has had increasing pain and drainage for about a week now. No fevers. No nausea, vomiting, diarrhea. No chest pain or shortness of breath. No other rashes. She denies any nausea, vomiting, diarrhea. She has no other complaints. Pain is worse with touching the area or putting her arm down, nothing seems to make it better. - Related Data Allergies/Adverse Reactions: Sulfa (Sulfonamide Antibiotics) Allergy (Mild, Verified 05/25/17 04:13) unknown Past Medical History - Social History Smoking Status: Unknown if Ever Smoked Family History: DM, Hypertension, Malignancy, Thyroid Disfunction - Past Medical History Cardiac Medical History: Reports: Hx Heart Murmur Neurological Medical History: Reports: Hx Seizures - as child Renal/ Medical History: Denies: Hx Peritoneal Dialysis Skin Medical History: Reports Hx Cellulitis, Reports Hx MRSA - bilateral axillae Infectious Medical History: Reports: Hx MRSA - Immunizations Immunizations up to date: Yes Hx Diphtheria, Pertussis, Tetanus Vaccination: Yes - january 2015 Review of Systems - Review of Systems -: Yes All other systems reviewed and negative Physical Exam - Vital signs Vitals: Temp Pulse Resp BP Pulse Ox 98.6 F 89 20 125/76 99 09/27/17 20:49 09/27/17 20:49 09/27/17 20:49 09/27/17 20:49 09/27/17 20:49 - Notes Notes: GENERAL: alert, cooperative, nontoxic, no distress. HEAD: normocephalic, atraumatic EYES: conjunctiva pink without discharge, no external redness or swelling. EARS: no external swelling, no external redness NOSE: atraumatic, no external swelling MOUTH/THROAT: mucous membranes moist and pink NECK: soft, supple, full range of motion, no meningismus. CHEST: no distress, lungs clear and equal throughout. No wheezing, rales, rhonchi. CARDIAC: regular rate and rhythm, no murmur, normal capillary refill, normal pulses. BACK: full range of motion, no CVA tenderness. EXTREMITIES: full range of motion of all extremities. No redness, no swelling. NEURO: alert and oriented 3, no focal deficits, full range of motion of all extremities. PYSCH: appropriate mood, affect. Patient is cooperative. SKIN: pink, warm, dry, no rash. Patient with multiple scars to the left axilla. She has multiple indurated areas to left axilla with 1 fluctuant area in the center of the axilla with mild drainage. There is tenderness to palpation. There is minimal redness around the indurated and fluctuant areas. No significant axillary cellulitis with no redness up the arm or down the chest wall. Course - Re-evaluation Re-evalutation: 09/27/17 22:15 The patient is nontoxic appearing with stable vitals. The patient has a long- standing history of multiple abscess under her left arm. She has one that is inflamed and draining at this time. She is afebrile. Was able to further open and drain the abscess in her left axilla and will discharge her home on clindamycin as well as [place] for pain. She is instructed to apply warm compresses to sore area. Follow-up for increasing pain, high fever, increased redness, persistent vomiting, or for any further concerns. The patient is noted to have elevated blood pressure during today's emergency department visit. The patient was informed of this finding. The patient was instructed that this may be related to pre-hypertension and requires further evaluation with a primary care provider. The patient has no hypertensive symptoms at this time. The patient's emergency department workup and current diagnosis were explained to the patient and or family. Follow-up instructions were provided. Medications if prescribed were discussed. Instructions for when to return to the emergency department including specific worrisome symptoms were discussed with the patient and/or family. - Vital Signs Vital signs: Temp Pulse Resp BP Pulse Ox 98.6 F 89 20 125/76 99 09/27/17 20:49 09/27/17 20:49 09/27/17 20:49 09/27/17 20:49 09/27/17 20:49 Procedures - Incision and Drainage Left axilla Type: Simple Anesthetic type: 1% Lidocaine Blade size: 11 I&D procedure: Betadine prep applied, Sterile dressing applied Incision Method: Incision made by scalpel Amount/type of drainage: MODERATE PURULENT Notes: 09/27/17 22:16 Probe with hemostats to break up loculations. Discharge - Discharge Clinical Impression: Abscess of axilla, left Condition: Stable Disposition: HOME, SELF-CARE Instructions: Abscess ([facility]), Post Incision and Drainage, Oral Narcotic Medication ([facility]) Additional Instructions: Take medications as prescribed. Apply warm compresses. Follow-up if not better in the next 2 days, sooner for increasing pain, high fever, redness, persistent vomiting, or for any further concerns. Your blood pressure was elevated during today's visit. Have this rechecked with your doctor. The medication you were prescribed today may cause drowsiness. Do not drive or operate heavy machinery while taking this medication. Prescriptions: Clindamycin HCl 300 mg PO QID #40 capsule Hydrocodone/Acetaminophen [[place] 5-325 mg Tablet] 2 tab PO Q6H PRN #15 tab PRN Reason: Forms: Elevated Blood Pressure, Smoking Cessation Education Referrals: [facility] [Provider Group] - Follow up as needed
[2017-09-27 22:37] VITALS: BP 135/88
== END 2017-09-27 22:38 | disposition home or self-care (01) ==
LOC: ER 20:37
PROC: 0H9CXZZ Drainage of Left Upper Arm Skin, External Approach (ICD-10-PCS; principal; 2017-09-27)
DX: L02.412 Cutaneous abscess of left axilla (principal); Z88.2 Allergy status to sulfonamides; Z86.14 Personal history of Methicillin resistant Staphylococcus aureus infection
CPT/HCPCS: 99283

== ENCOUNTER 2017-11-08 08:35 | Emergency (ER) | payer MEDICAID ==
[2017-11-08 08:48] VITALS: BP 146/85
[2017-11-08] MEDS ORDERED: DIPHENHYDRAMINE HCL 50 MG/ML VIAL IM ONE (09:56)
[2017-11-08] MEDS ORDERED: METOCLOPRAMIDE HCL INJ/PF 10 MG/2 ML SDV IM ONE (09:56)
[2017-11-08] MEDS ORDERED: KETOROLAC TROMETHAMINE INJ/PF 30 MG/1 ML SDV IM ONE (09:56)
--- NOTE | 2017-11-08 10:00 | ER Document Report ---
ED Headache - General Chief Complaint: Headache Stated Complaint: HEAD PAIN Time Seen by Provider: 11/08/17 08:48 Mode of Arrival: Ambulatory Information source: Patient TRAVEL OUTSIDE OF THE [place] IN LAST 30 DAYS: No - HPI Patient complains to provider of: Headache Notes: Patient is here with complaints of right-sided headache. The patient has a history of headaches. She states that for the last 2 days she has had a right- sided headache. It was not a sudden onset, thunderclap headache. States that it was gradual onset. She denies any head injuries. She is not on blood thinners. She denies any blurred or loss vision. She has nausea but denies any vomiting or diarrhea. No abdominal pain. No chest pain or shortness of breath. She denies any neck stiffness. No rash. She denies any blurred or loss vision. She does complain of photophobia. She does have a history of headaches and this feels similar to headache she has had in the past, but typically she can take Excedrin Migraine which tends to relieve her headaches. She is taking Excedrin without relief. She denies any unilateral numbness, tingling, weakness. She denies any other complaints at this time. - Related Data Allergies/Adverse Reactions: Sulfa (Sulfonamide Antibiotics) Allergy (Mild, Verified 11/08/17 08:36) unknown Past Medical History - Social History Smoking Status: Current Every Day Smoker Chew tobacco use (# tins/day): No Frequency of alcohol use: None Drug Abuse: None Family History: DM, Hypertension, Malignancy, Thyroid Disfunction Patient has suicidal ideation: No Patient has homicidal ideation: No - Past Medical History Cardiac Medical History: Reports: Hx Heart Murmur Neurological Medical History: Reports: Hx Seizures - as child Renal/ Medical History: Denies: Hx Peritoneal Dialysis Skin Medical History: Reports Hx Cellulitis, Reports Hx MRSA - bilateral axillae Infectious Medical History: Reports: Hx MRSA - Immunizations Immunizations up to date: Yes Hx Diphtheria, Pertussis, Tetanus Vaccination: Yes - january 2015 Review of Systems - Review of Systems -: Yes All other systems reviewed and negative Physical Exam - Vital signs Vitals: Temp Pulse Resp BP Pulse Ox 98.4 F 103 H 18 146/85 H 98 11/08/17 08:48 11/08/17 08:48 11/08/17 08:48 11/08/17 08:48 11/08/17 08:48 - Notes Notes: GENERAL: alert, cooperative, nontoxic, no distress. HEAD: normocephalic, atraumatic EYES: conjunctiva pink without discharge, no external redness or swelling. Pupils are equal, round, reactive to light. EARS: no external swelling, no external redness NOSE: atraumatic, no external swelling MOUTH/THROAT: mucous membranes moist and pink, posterior pharynx without erythema, swelling, exudate. No trismus or drooling. NECK: soft, supple, full range of motion, no meningismus. CHEST: no distress, lungs clear and equal throughout. No wheezing, rales, rhonchi. CARDIAC: regular rate and rhythm, no murmur, normal capillary refill, normal pulses. No peripheral edema noted. BACK: full range of motion, no CVA tenderness. EXTREMITIES: full range of motion of all extremities. No redness, no swelling. NEURO: alert and oriented x 3, cranial nerves II through XII are grossly intact. Upper and lower extremities are equal throughout. Normal sensation. No focal deficits, full range of motion of all extremities. normal finger to nose. PYSCH: appropriate mood, affect. Patient is cooperative. SKIN: pink, warm, dry, no rash. Course - Re-evaluation Re-evalutation: 11/08/17 09:58 Patient is nontoxic appearing with stable vitals. Patient is here with complaints of right-sided headache. This was a gradual onset headache. Not sudden onset, thunderclap. She is on no blood thinners. No injuries. She has a history of my drains and this feels similar to headaches she has had in the past. No fever. No neck stiffness. No sign of meningitis. No sign of subarachnoid hemorrhage. She has a nonfocal neurological exam. Patient will be given Toradol, Reglan, Benadryl and will be discharged home with instructions to go home and lie down in a dark quiet room. Follow-up for worsening pain, fever, neck stiffness, numbness, tingling, weakness, or any further concerns. The patient is noted to have elevated blood pressure during today's emergency department visit. The patient was informed of this finding. The patient was instructed that this may be related to pre-hypertension and requires further evaluation with a primary care provider. The patient has no hypertensive symptoms at this time. The patient's emergency department workup and current diagnosis were explained to the patient and or family. Follow-up instructions were provided. Medications if prescribed were discussed. Instructions for when to return to the emergency department including specific worrisome symptoms were discussed with the patient and/or family. - Vital Signs Vital signs: Temp Pulse Resp BP Pulse Ox 98.4 F 103 H 18 146/85 H 98 11/08/17 08:48 11/08/17 08:48 11/08/17 08:48 11/08/17 08:48 11/08/17 08:48 Discharge - Discharge Clinical Impression: Headache Qualifiers: Headache type: unspecified Headache chronicity pattern: acute headache Intractability: not intractable Qualified Code(s): R51 - Headache Condition: Stable Disposition: HOME, SELF-CARE Instructions: Headache ([facility]) Additional Instructions: Follow-up with your doctor if not better in the next 2 days. Follow-up sooner for worsening pain, fever, neck stiffness, persistent vomiting, numbness, tingling, weakness, any further concerns. Your blood pressure was elevated during today's visit. Have this rechecked with your doctor. Forms: Elevated Blood Pressure, Smoking Cessation Education Referrals: TARAS PERRIN DO [Primary Care Provider] - Follow up as needed
== END 2017-11-08 10:38 | disposition home or self-care (01) ==
LOC: ER 08:35
DX: R51 Headache (principal); F17.200 Nicotine dependence, unspecified, uncomplicated; Z88.2 Allergy status to sulfonamides; Z86.14 Personal history of Methicillin resistant Staphylococcus aureus infection
CPT/HCPCS: 99283; 96372; J1200; J1885; J2765

== ENCOUNTER 2017-11-26 15:14 | Emergency (ER) | payer MEDICAID ==
--- NOTE | 2017-11-26 16:45 | ER Document Report ---
ED Extremity Problem, Lower - General Chief Complaint: Knee Pain Stated Complaint: KNEE PAIN Time Seen by Provider: 11/26/17 16:25 Mode of Arrival: Ambulatory Information source: Patient Notes: 27-year-old female presents to ED for complaint of left knee pain. She states this started in the middle of the night last night. She denies any injuries or any falls. She was has ambulated on this leg. Pedal pulses are present and palpable. Cap refills are less than 3 seconds. She states she has had similar pain about a year ago they did x-rays and did not see anything. States she was sent home with a knee immobilizer and crutches and follow-up with orthopedics but they never told her what was wrong. TRAVEL OUTSIDE OF THE [place] IN LAST 30 DAYS: No - HPI Patient complains to provider of: Pain Location: Knee Occurred: This morning Where: Home, Indoors Onset/Duration: Sudden Quality of pain: Sharp Severity: Moderate Pain Level: 4 Recent injury: No Associated symptoms: Painful ambulation Exacerbated by: Movement, Walking Relieved by: Nothing - Related Data Allergies/Adverse Reactions: Sulfa (Sulfonamide Antibiotics) Allergy (Mild, Verified 11/26/17 15:17) unknown Past Medical History - General Information source: Patient - Social History Smoking Status: Current Every Day Smoker Cigarette use (# per day): Yes - 2-3 Chew tobacco use (# tins/day): No Smoking Education Provided: Yes - 4 min Frequency of alcohol use: None Drug Abuse: None Occupation: in school Lives with: Family Family History: DM, Hypertension, Malignancy, Thyroid Disfunction Patient has suicidal ideation: No Patient has homicidal ideation: No - Past Medical History Cardiac Medical History: Reports: Hx Heart Murmur Pulmonary Medical History: Reports: None EENT Medical History: Reports: None Neurological Medical History: Reports: Hx Seizures - as child Endocrine Medical History: Reports: None Renal/ Medical History: Denies: Hx Peritoneal Dialysis Malignancy Medical History: Reports: None GI Medical History: Reports: None Musculoskeltal Medical History: Reports Hx Musculoskeletal Trauma Skin Medical History: Reports Hx Cellulitis, Reports Hx MRSA - bilateral axillae Psychiatric Medical History: Reports: None Traumatic Medical History: Reports: None Infectious Medical History: Reports: Hx MRSA Surgical Hx: Negative Past Surgical History: Reports: None - Immunizations Immunizations up to date: Yes Hx Diphtheria, Pertussis, Tetanus Vaccination: Yes - january 2015 Review of Systems - Review of Systems Constitutional: No symptoms reported EENT: No symptoms reported Cardiovascular: No symptoms reported Respiratory: No symptoms reported Gastrointestinal: No symptoms reported Genitourinary: No symptoms reported Female Genitourinary: No symptoms reported Musculoskeletal: No symptoms reported, Joint pain - Left knee pain Skin: No symptoms reported Hematologic/Lymphatic: No symptoms reported Neurological/Psychological: No symptoms reported Physical Exam - Vital signs Vitals: Temp Pulse BP Pulse Ox 99.1 F 100 140/82 H 100 11/26/17 15:40 11/26/17 15:40 11/26/17 15:40 11/26/17 15:40 Interpretation: Normal - General General appearance: Appears well, Alert - HEENT Head: Normocephalic, Atraumatic Eyes: Normal Pupils: PERRL - Respiratory Respiratory status: No respiratory distress Chest status: Nontender Breath sounds: Normal Chest palpation: Normal - Cardiovascular Rhythm: Regular Heart sounds: Normal auscultation Murmur: No - Abdominal Inspection: Normal Distension: No distension Bowel sounds: Normal Tenderness: Nontender Organomegaly: No organomegaly - Back Back: Normal, Nontender - Extremities General upper extremity: Normal inspection, Nontender, Normal color, Normal ROM , Normal temperature General lower extremity: Normal inspection, Normal color, Normal ROM, Normal temperature. No: Ceasar's sign Knee: Tender, Pain with ROM, Patellar tendon intact, Tender joint line. No: Drawer's test instability, Laceration, Laxity with valgus stress, Laxity with varus stress, Popliteal fossa tender, Unable to bear weight - Pain with weightbearing - Neurological Neuro grossly intact: Yes Cognition: Normal Orientation: AAOx4 [employer] Coma Scale Eye Opening: Spontaneous Shi Coma Scale Verbal: Oriented Shi Coma Scale Motor: Obeys Commands Shi Coma Scale Total: 15 Speech: Normal Motor strength normal: LUE, RUE, LLE, RLE Sensory: Normal - Psychological Associated symptoms: Normal affect, Normal mood - Skin Skin Temperature: Warm Skin Moisture: Dry Skin Color: Normal Course - Re-evaluation Re-evalutation: 11/26/17 18:09 This patient was seen today for left knee pain. 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 This is not a new or acute injury. She states she has been orthopedics in the past but never was told what was wrong. There is no acute injuries at this time. - Vital Signs Vital signs: Temp Pulse Resp BP Pulse Ox 98.6 F 91 18 116/71 100 11/26/17 18:08 11/26/17 18:08 11/26/17 18:08 11/26/17 18:08 11/26/17 18:08 - Diagnostic Test Radiology reviewed: Image reviewed, Reports reviewed Procedures - Immobilization Left Knee Time completed: 18:08 Immobilizer type: Crutches, Knee immobilizer Performed by: PCT Post-Proc Neuro Vasc Exam: Normal Alignment checked and good: Yes Discharge - Discharge Clinical Impression: Left knee pain Qualifiers: Chronicity: unspecified Qualified Code(s): M25.562 - Pain in left knee Condition: Stable Disposition: HOME, SELF-CARE Instructions: Family Physicians / Practices Additional Instructions: You were seen today for left knee pain that she states has been going on for a while but happened again last night while you were sleeping. You states it hurts to bend or walk on it. You state you is stand on your leg for 8 hours a day at school. The x-rays do not show any acute injuries. They do not show any bony abnormalities. KNEE IMMOBILIZING SPLINT: The knee immobilizing splint will protect the injury while healing begins. This type of splint does not allow the knee to bend at all. No running or sports will be possible. If the splint allows painfree walking, it's giving adequate protection. If there is still significant pain, crutches may be needed as well. Don't do anything that hurts. Adjusted the splint, if necessary. The stiffeners on the sides are attached with Velcro, so they can be easily moved to adjust for thigh and calf size. If you need help with these adjustments, come back. You will lose muscle strength in the thigh while using this splint. The doctor will advise you if it's safe to do isometric knee exercises while you use it. USE OF CRUTCHES: The doctor has recommended that you not bear weight at this time. You will need to use crutches. Adjust the crutches so the tops come to about two inches under the armpit while you are standing upright. Use your hands -- not your armpits -- to support your weight. To get into a chair, support yourself with one crutch on the injured side. Hold the chair with the other hand, then lower yourself while putting all your weight on the good leg. Going up stairs is `good leg up, step up, then bring up crutches and bad leg.' Down stairs is `bad leg and crutches down, then bring good leg down.' If you develop numbness or swelling in an arm or hand, you are using the crutches incorrectly. Return if you are having any problems with the crutches. ICE & ELEVATION: Apply ice packs frequently against the painful area. Many different schedules are recommended, such as "20 minutes on, 20 minutes off" or "one hour ice, two hours rest." If you need to work, you may need to go longer between ice treatments. You should plan to have the area ice packed AT LEAST one- fourth of the time. The ice should be applied over the wrap, tape, or splint, or over a layer of cloth -- not directly against the skin. Some ice bags have a built-in cloth and can be put directly on the skin. Your injured part should be elevated as much as possible over the next 48 hours. Try to keep the injury above the level of the heart. Avoid use of the injured area. Elevation and rest will decrease the swelling. USE OF [id number] IBUPROFEN: Ibuprofen (Advil, Nuprin, Medipren, Motrin IB) is a medication for fever and pain control. In addition, it has anti- inflammatory effects which may be beneficial, especially in the treatment of injuries. It's best to take ibuprofen with food. Persons with ulcer disease or allergy to aspirin should notify their physician of this before taking ibuprofen. Ibuprofen can be given every four to six hours, for a total of four doses daily. Age Pain or fever dose Antiinflammatory dose 6-8 yr 200 mg (1 tab) 200 mg (1 tab) 9-11 yr 200 mg (1 tab) 200-400 mg (1-2 tab) 11-14 yr 200-400 mg (1-2 tab) 400 mg (2 tab) 15-adult 400 mg (2 tab) 600 mg (3 tab) FOLLOW-UP CARE: If you have been referred to a physician for follow-up care, call the physician s office for an appointment as you were instructed or within the next two days. If you experience worsening or a significant change in your symptoms, notify the physician immediately or return to the Emergency Department at any time for re-evaluation. Prescriptions: Ibuprofen 600 mg PO Q8HP PRN #20 tablet PRN Reason: Forms: Elevated Blood Pressure, Special Work Note, Return to School Referrals: BHAVANA FIGUEROA MD [ACTIVE STAFF] - Follow up as needed
--- NOTE | 2017-11-26 17:55 | RADIOLOGY REPORT (SQ) ---
EXAM DESCRIPTION: KNEE LEFT 4 VIEW COMPLETED DATE/TIME: 11/26/2017 5:10 pm REASON FOR STUDY: pain COMPARISON: None. NUMBER OF VIEWS: Four views. TECHNIQUE: AP, lateral, and both oblique radiographic images acquired of the left knee. LIMITATIONS: None. FINDINGS: MINERALIZATION: Normal. BONES: No acute fracture or dislocation. No worrisome bone lesions. JOINT: No effusion. SOFT TISSUES: No soft tissue swelling. No radio-opaque foreign body. OTHER: No other significant finding. IMPRESSION: NEGATIVE STUDY OF THE LEFT KNEE. NO RADIOGRAPHIC EVIDENCE OF ACUTE INJURY. TECHNICAL DOCUMENTATION: JOB ID: [id number] [id number] [employer]- All Rights Reserved Reading location - IP/workstation name: [email or web address]
[2017-11-26 18:15] VITALS: BP 116/71
== END 2017-11-26 18:15 | disposition home or self-care (01) ==
LOC: ER 15:14
DX: M25.562 Pain in left knee (principal); F17.210 Nicotine dependence, cigarettes, uncomplicated; Z71.6 Tobacco abuse counseling; Z88.2 Allergy status to sulfonamides
CPT/HCPCS: 99406; 99283; 73562; L1830

== ENCOUNTER 2018-01-29 20:57 | Emergency (ER) | payer MEDICAID ==
[2018-01-29] MEDS ORDERED: DIPHENHYDRAMINE HCL 50 MG/ML VIAL IV ONE (21:47)
[2018-01-29] MEDS ORDERED: KETOROLAC TROMETHAMINE INJ/PF 30 MG/1 ML SDV IV ONE (21:47)
[2018-01-29] MEDS ORDERED: PROCHLORPERAZINE EDISYLATE INJ 10 MG/2 ML VIAL IM ONE (21:47)
[2018-01-29] MEDS ORDERED: NORMAL SALINE 1000 ML 1,000 ML IV ONE (21:47)
--- NOTE | 2018-01-29 23:41 | ER Document Report ---
ED Headache - General Chief Complaint: Headache Stated Complaint: HEAD PAIN Time Seen by Provider: 01/29/18 21:33 Mode of Arrival: Ambulatory Information source: Patient Notes: Patient is a 27-year-old female with a history of migraines who presents to the ER today for migraine 1 week has been resistant to Tylenol and Motrin at home. Patient states that she is having light and sound sensitivity which is normal for her migraines. She denies any fevers or chills, injury to the head. She denies nausea or vomiting. She admits to scalp tenderness over the right scalp where her migraine is worse. She is about to graduate from college and states she has been very stressed recently. TRAVEL OUTSIDE OF THE [place] IN LAST 30 DAYS: No - Related Data Allergies/Adverse Reactions: Sulfa (Sulfonamide Antibiotics) Allergy (Mild, Verified 11/26/17 15:17) unknown Past Medical History - General Information source: Patient - Social History Smoking Status: Current Every Day Smoker Chew tobacco use (# tins/day): No Frequency of alcohol use: Occasional Drug Abuse: None Family History: DM, Hypertension, Malignancy, Thyroid Disfunction Patient has suicidal ideation: No Patient has homicidal ideation: No - Past Medical History Cardiac Medical History: Reports: Hx Heart Murmur Neurological Medical History: Reports: Hx Seizures - as child Renal/ Medical History: Denies: Hx Peritoneal Dialysis Musculoskeletal Medical History: Reports Hx Musculoskeletal Trauma Skin Medical History: Reports Hx Cellulitis, Reports Hx MRSA - bilateral axillae Infectious Medical History: Reports: Hx MRSA - Immunizations Immunizations up to date: Yes Hx Diphtheria, Pertussis, Tetanus Vaccination: Yes - january 2015 Review of Systems - Review of Systems Constitutional: No symptoms reported EENT: No symptoms reported Cardiovascular: No symptoms reported Respiratory: No symptoms reported Gastrointestinal: No symptoms reported Genitourinary: No symptoms reported Female Genitourinary: No symptoms reported Musculoskeletal: No symptoms reported Skin: No symptoms reported Hematologic/Lymphatic: No symptoms reported Neurological/Psychological: See HPI Physical Exam - Vital signs Vitals: Temp Pulse Resp BP Pulse Ox 98.7 F 95 16 135/79 H 99 01/29/18 21:18 01/29/18 21:18 01/29/18 21:18 01/29/18 21:18 01/29/18 21:18 - Notes Notes: PHYSICAL EXAMINATION: GENERAL: Well-appearing and in no acute distress. HEAD: Atraumatic, normocephalic. EYES: Pupils equal round and reactive to light, extraocular movements intact, sclera anicteric, conjunctiva are normal. NECK: Normal range of motion, supple without lymphadenopathy LUNGS: CTAB and equal. No wheezes rales or rhonchi. HEART: Regular rate and rhythm without murmurs EXTREMITIES: Normal range of motion, no pitting edema. No cyanosis. NEUROLOGICAL: Cranial nerves grossly intact. Normal sensory/motor exams. Good and equal strength bilaterally, Kernig and Brudzinski's signs negative, Romberg' s test normal, normal heel to mota testing PSYCH: Normal mood, normal affect. SKIN: Warm, Dry, normal turgor, no rashes or lesions noted Course - Re-evaluation Re-evalutation: 01/30/18 01:53 Patient feels much better after IV cocktail today. - Vital Signs Vital signs: Temp Pulse Resp BP Pulse Ox 97.6 F 82 18 111/55 L 97 01/30/18 00:45 01/30/18 00:45 01/30/18 00:45 01/30/18 00:45 01/30/18 00:45 Discharge - Discharge Clinical Impression: Migraine Qualifiers: Migraine type: unspecified Status migrainosus presence: without status migrainosus Intractability: not intractable Qualified Code(s): G43.909 - Migraine, unspecified, not intractable, without status migrainosus Condition: Stable Disposition: HOME, SELF-CARE Additional Instructions: Return immediately for any new or worsening symptoms. Follow up with primary care provider, call tomorrow to make followup appointment. Prescriptions: Cyclobenzaprine HCl [Flexeril 10 mg Tablet] 10 mg PO TIDP PRN #15 tab PRN Reason: Forms: Return to Work
[2018-01-30 00:53] VITALS: BP 111/55
== END 2018-01-30 00:52 | disposition home or self-care (01) ==
LOC: ER 20:57
DX: G43.909 Migraine, unspecified, not intractable, without status migrainosus (principal); H53.149 Visual discomfort, unspecified; F17.200 Nicotine dependence, unspecified, uncomplicated; Z88.2 Allergy status to sulfonamides
CPT/HCPCS: 99283; 96372; 96361; 96374; 96375; J1200; J1885; J0780; J7030

== ENCOUNTER 2018-04-18 11:09 | Emergency (ER) | payer MEDICAID ==
[2018-04-18 11:18] VITALS: BP 134/79
--- NOTE | 2018-04-18 11:43 | ER Document Report ---
ED Medical Screen (RME) - General Chief Complaint: Abscess Stated Complaint: POSSIBLE ABSCESS Time Seen by Provider: 04/18/18 11:41 Mode of Arrival: Ambulatory Information source: Patient Notes: 27-year-old female with no reported past medical history presents with complaint of left underarm pain, redness and swelling that started 1 day prior to arrival. Patient does have a history of previous abscesses. She denies history of staph. I have greeted and performed a rapid initial assessment of this patient. A comprehensive ED assessment and evaluation of the patient, analysis of test results and completion of medical decision making process we will be contacted by additional ED providers. PHYSICAL EXAMINATION: GENERAL: Well-appearing, well-nourished and in no acute distress. HEAD: Atraumatic, normocephalic. EYES: Pupils equal round extraocular movements intact, conjunctiva are normal. ENT: Nares patent NECK: Normal range of motion LUNGS: No respiratory distress Musculoskeletal: Normal range of motion NEUROLOGICAL: Normal speech, normal gait. PSYCH: Normal mood, normal affect. SKIN: Area of erythema, induration in the left axilla TRAVEL OUTSIDE OF THE [place] IN LAST 30 DAYS: Yes - HPI Onset: Yesterday Onset/Duration: Gradual Quality of pain: Burning, Throbbing Severity: Mild Associated Symptoms: None Exacerbated by: Movement Relieved by: Remaining still Similar symptoms previously: Yes Recently seen / treated by doctor: No - Related Data Smoking: Cigarettes Frequency of alcohol use: None Drug Abuse: None Allergies/Adverse Reactions: Sulfa (Sulfonamide Antibiotics) Allergy (Mild, Verified 04/18/18 11:11) unknown Past Medical History - Past Medical History Cardiac Medical History: Reports: Hx Heart Murmur Neurological Medical History: Reports: Hx Seizures - as child Renal/ Medical History: Denies: Hx Peritoneal Dialysis Musculoskeltal Medical History: Reports Hx Musculoskeletal Trauma Skin Medical History: Reports Hx Cellulitis, Reports Hx MRSA - bilateral axillae Infectious Medical History: Reports: Hx MRSA - Immunizations Immunizations up to date: Yes Hx Diphtheria, Pertussis, Tetanus Vaccination: Yes - january 2015 Physical Exam - Vital signs Vitals: Temp Pulse Resp BP Pulse Ox 98.5 F 91 18 134/79 H 97 04/18/18 11:16 04/18/18 11:16 04/18/18 11:16 04/18/18 11:16 04/18/18 11:16 Course - Vital Signs Vital signs: Temp Pulse Resp BP Pulse Ox 98.5 F 91 18 134/79 H 97 04/18/18 11:16 04/18/18 11:16 04/18/18 11:16 04/18/18 11:16 04/18/18 11:16
[2018-04-18] MEDS ORDERED: CLINDAMYCIN HCL 150 MG CAPSULE PO ONE (12:17)
--- NOTE | 2018-04-18 12:24 | ER Document Report ---
ED Skin Rash/Insect Bite/Abscs - General Chief Complaint: Abscess Stated Complaint: POSSIBLE ABSCESS Time Seen by Provider: 04/18/18 11:41 Mode of Arrival: Ambulatory Notes: 27-year-old female presented to ED for complaint of abscess to the left under arm with redness and swelling that started 1-2 days ago. She states she started out with a very small area and now has gotten more painful and larger. TRAVEL OUTSIDE OF THE [place] IN LAST 30 DAYS: Yes - HPI Patient complains to provider of: Tender/swollen area Onset: Other - 2-3 days Onset/Duration: Gradual, Worse Quality of pain: Sharp Severity: Moderate Pain Level: 2 Skin Character: Abscess Quality of rash: Painful Identify cause: No Exacerbated by: Movement Relieved by: Denies Similar symptoms previously: Yes Recently seen / treated by doctor: No - Related Data Allergies/Adverse Reactions: Sulfa (Sulfonamide Antibiotics) Allergy (Mild, Verified 04/18/18 11:43) unknown Past Medical History - General Information source: Patient - Social History Smoking Status: Current Every Day Smoker Chew tobacco use (# tins/day): No Frequency of alcohol use: None Drug Abuse: None Family History: DM, Hypertension, Malignancy, Thyroid Disfunction Patient has suicidal ideation: No Patient has homicidal ideation: No - Past Medical History Cardiac Medical History: Reports: Hx Heart Murmur Pulmonary Medical History: Reports: None EENT Medical History: Reports: None Neurological Medical History: Reports: Hx Seizures - as child Endocrine Medical History: Reports: None Renal/ Medical History: Reports: None Malignancy Medical History: Reports: None GI Medical History: Reports: None Musculoskeletal Medical History: Reports Hx Musculoskeletal Trauma Skin Medical History: Reports Hx Cellulitis, Reports Hx MRSA - bilateral axillae Psychiatric Medical History: Reports: None Traumatic Medical History: Reports: None Infectious Medical History: Reports: Hx MRSA Surgical Hx: Negative - Immunizations Immunizations up to date: Yes Hx Diphtheria, Pertussis, Tetanus Vaccination: Yes - january 2015 Review of Systems - Review of Systems Constitutional: No symptoms reported EENT: No symptoms reported Cardiovascular: No symptoms reported Respiratory: No symptoms reported Gastrointestinal: No symptoms reported Genitourinary: No symptoms reported Female Genitourinary: No symptoms reported Musculoskeletal: No symptoms reported Skin: Other - Abscess to the left axilla Hematologic/Lymphatic: No symptoms reported Neurological/Psychological: No symptoms reported Physical Exam - Vital signs Vitals: Temp Pulse Resp BP Pulse Ox 98.5 F 91 18 134/79 H 97 04/18/18 11:16 04/18/18 11:16 04/18/18 11:16 04/18/18 11:16 04/18/18 11:16 Interpretation: Normal - General General appearance: Appears well, Alert - HEENT Head: Normocephalic, Atraumatic Eyes: Normal Pupils: PERRL - Respiratory Respiratory status: No respiratory distress Chest status: Nontender Breath sounds: Normal Chest palpation: Normal - Cardiovascular Rhythm: Regular Heart sounds: Normal auscultation Murmur: No - Abdominal Inspection: Normal Distension: No distension Bowel sounds: Normal Tenderness: Nontender Organomegaly: No organomegaly - Back Back: Normal, Nontender - Extremities General upper extremity: Normal inspection, Nontender, Normal color, Normal ROM , Normal temperature General lower extremity: Normal inspection, Nontender, Normal color, Normal ROM , Normal temperature, Normal weight bearing. No: Ceasar's sign - Neurological Neuro grossly intact: Yes Cognition: Normal Orientation: AAOx4 [place] Coma Scale Eye Opening: Spontaneous [place] Coma Scale Verbal: Oriented Shi Coma Scale Motor: Obeys Commands Shi Coma Scale Total: 15 Speech: Normal Motor strength normal: LUE, RUE, LLE, RLE Sensory: Normal - Psychological Associated symptoms: Normal affect, Normal mood - Skin Skin Temperature: Warm Skin Moisture: Dry Skin Color: Normal Skin irregularity: Abscess Location of irregularity: Other - Left axilla Irregularity with: Swelling, Tenderness, Warmth Course - Re-evaluation Re-evalutation: 04/18/18 21:20 Left axilla cleaned with Betadine 18-gauge needle inserted and return of small amount of purulent drainage. Wound culture sent and patient started on clindamycin. Patient was given a dose in the emergency room and discharged home with prescription. Patient to follow-up with primary doctor or the emergency room for any increase in pain or swelling. Patient instructed on use of Epson salt soaks to the area. - Vital Signs Vital signs: Temp Pulse Resp BP Pulse Ox 98.5 F 91 18 134/79 H 97 04/18/18 11:16 04/18/18 11:16 04/18/18 11:16 04/18/18 11:16 04/18/18 11:16 Discharge - Discharge Clinical Impression: Abscess of left axilla Condition: Stable Disposition: HOME, SELF-CARE Instructions: Family Physicians / Practices Additional Instructions: ABSCESS: You have an abscess (boil). This a pus-forming infection, usually due to staph. Some boils may be left to drain on their own, but most require lancing. From the time the tender lump first appears, it may be three or four days before the abscess is ready to alexus. Local heat and rest help at this stage of treatment. An antibiotic may prevent spread of the infection. Once the abscess is opened, packing may be placed into it. This is done so pus is not sealed inside by premature closure of the cavity. The packing will be removed at your follow-up visit or you may be advised to remove it yourself at home. Sometimes this packing must be replaced a few times during healing. The wound will heal with surprisingly little scar. Depending on the size and location of an abscess, healing can take one to four weeks. You may shower and wash the area around the incision site two or three times a day. Antibiotics may be prescribed, but are usually not necessary after an abscess has been drained. If you develop fever, chills, worsening pain, or increasing swelling in the area, call the doctor or return immediately. Clindamycin You have been given a prescription for the antibiotic clindamycin. It is often prescribed for infections in the mouth, such as dental infections or abscesses, and for skin infections due to MRSA. It's important that you take all the medication, unless instructed otherwise by your physician. Failure to complete the entire course can result in relapse of your condition. Common side effects of antibiotics include nausea, intestinal cramping, or diarrhea. Women may develop vaginal yeast infections, and babies can get yeast (thrush) in the mouth following the use of antibiotics. Contact your physician if you develop significant side effects from this medication. Allergy to this antibiotic can result in hives, wheezing, faintness, or itching. If symptoms of allergy occur, stop the medication and call the doctor. Epsom Salt Soaks Soak the wound area in a container of warm epsom salt water. If you can't get the wound area into a bucket or cruz, use a folded towel soaked in the epsom salt solution and apply to the area. Use clean hot tap water (about the temperature of a very warm bath), mixing in about one (1) teaspoon for every pint of water. Two gallon --> 16 teaspoons Epsom Salts One gallon --> 8 teaspoons Epsom Salts Two quarts --> 4 teaspoons Epsom Salts One quart --> 2 teaspoons Epsom Salts Soak the wound for about 20 minutes while gently moving it around in the water. Repeat this four (4) times a day. FOLLOW-UP CARE: Most simple abscesses will not require a follow up visit. If you had packing placed in the abscess, remove it as instructed by the physician. If you have been referred to a physician for follow-up care, call the physicians office for an appointment as you were instructed or within the next two days. If you experience worsening or a significant change in your symptoms, return to the Emergency Department at any time for re-evaluation. Prescriptions: Clindamycin HCl 300 mg PO QID #28 capsule Forms: Elevated Blood Pressure, Smoking Cessation Education, Return to Work Referrals: LAURENT LEAL MD [Primary Care Provider] - Follow up as needed
== END 2018-04-18 12:27 | disposition home or self-care (01) ==
LOC: ER 11:09
PROC: 0H9CXZZ Drainage of Left Upper Arm Skin, External Approach (ICD-10-PCS; principal; 2018-04-18)
DX: L02.412 Cutaneous abscess of left axilla (principal); F17.200 Nicotine dependence, unspecified, uncomplicated; Z86.14 Personal history of Methicillin resistant Staphylococcus aureus infection; Z88.2 Allergy status to sulfonamides
CPT/HCPCS: 99282; 87070; 87205; 10060; J3490

== ENCOUNTER 2018-05-14 18:36 | Emergency (ER) | payer MEDICAID ==
--- NOTE | 2018-05-14 19:09 | ER Document Report ---
ED GI/ - General Chief Complaint: Abdominal Pain Stated Complaint: ABDOMINAL PAIN Time Seen by Provider: 05/14/18 19:07 Mode of Arrival: Ambulatory Information source: Patient Notes: 27-year-old female presented to ED for complaint of pelvic and abdominal pain. She states she has had some pelvic pain and pain with urination for about the last week. She states that when she was with her last child she got a STD from her cheating on her. She states she used a sex toy at that time and then put it away. She states she was treated for trichomonas and then forgot about the toy and recently she used the sex toy again and now she is having the same symptoms and she is concerned and wants to be tested and treated if possible. Patient was alert and oriented respirations regular and unlabored speaking with full sentences. TRAVEL OUTSIDE OF THE [place] IN LAST 30 DAYS: No - HPI Patient complains to provider of: Abdominal pain, Pelvic pain, Vaginal discharge , Other - Discomfort with urination Onset: Last week Timing/Duration: Gradual Quality of pain: Burning, Pressure Severity at maximum: Moderate Severity in ED: Moderate Location: Pelvis, Vaginal Vaginal bleeding (Compared to normal period): None Associated symptoms: Urinary frequency, Urinary urgency, Vaginal discharge, Other - Pelvic pain Exacerbated by: Other - Urination Relieved by: Denies Similar symptoms previously: Yes Recently seen / treated by doctor: No - Related Data Allergies/Adverse Reactions: Sulfa (Sulfonamide Antibiotics) Allergy (Mild, Verified 04/18/18 11:43) unknown Past Medical History - General Information source: Patient - Social History Smoking Status: Current Every Day Smoker Cigarette use (# per day): Yes Lives with: Family Family History: DM, Hypertension, Malignancy, Thyroid Disfunction Patient has suicidal ideation: No Patient has homicidal ideation: No - Past Medical History Cardiac Medical History: Reports: Hx Heart Murmur Pulmonary Medical History: Reports: None EENT Medical History: Reports: None Neurological Medical History: Reports: Hx Seizures - as child Endocrine Medical History: Reports: None Renal/ Medical History: Reports: Other - Trichomonas Malignancy Medical History: Reports: None GI Medical History: Reports: None Musculoskeletal Medical History: Reports Hx Musculoskeletal Trauma Skin Medical History: Reports Hx Cellulitis, Reports Hx MRSA - bilateral axillae Psychiatric Medical History: Reports: None Traumatic Medical History: Reports: None Infectious Medical History: Reports: Hx MRSA Surgical Hx: Negative Past Surgical History: Reports: None - Immunizations Immunizations up to date: Yes Hx Diphtheria, Pertussis, Tetanus Vaccination: Yes - january 2015 Review of Systems - Review of Systems Constitutional: No symptoms reported EENT: No symptoms reported Cardiovascular: No symptoms reported Respiratory: No symptoms reported Gastrointestinal: No symptoms reported Genitourinary: Burning, Frequency, Urgency Female Genitourinary: Vaginal discharge Musculoskeletal: No symptoms reported Skin: No symptoms reported Hematologic/Lymphatic: No symptoms reported Neurological/Psychological: No symptoms reported -: Yes All other systems reviewed and negative Physical Exam - Vital signs Vitals: Temp Pulse Resp BP Pulse Ox 97.9 F 97 18 146/96 H 100 05/14/18 18:43 05/14/18 18:43 05/14/18 18:43 05/14/18 18:43 05/14/18 18:43 Interpretation: Normal - General General appearance: Appears well, Alert - HEENT Head: Normocephalic, Atraumatic Eyes: Normal Pupils: PERRL - Respiratory Respiratory status: No respiratory distress Chest status: Nontender Breath sounds: Normal Chest palpation: Normal - Cardiovascular Rhythm: Regular Heart sounds: Normal auscultation Murmur: No - Abdominal Inspection: Normal Distension: No distension Bowel sounds: Normal Tenderness: Nontender Organomegaly: No organomegaly - Genitourinary External exam: Normal Speculum exam: Vaginal discharge Vaginal bleeding: None Bimanuel exam: Normal - Back Back: Normal, Nontender - Extremities General upper extremity: Normal inspection, Nontender, Normal color, Normal ROM , Normal temperature General lower extremity: Normal inspection, Nontender, Normal color, Normal ROM , Normal temperature, Normal weight bearing. No: Ceasar's sign - Neurological Neuro grossly intact: Yes Cognition: Normal Orientation: AAOx4 [place] Coma Scale Eye Opening: Spontaneous Shi Coma Scale Verbal: Oriented Shi Coma Scale Motor: Obeys Commands [place] Coma Scale Total: 15 Speech: Normal Motor strength normal: LUE, RUE, LLE, RLE Sensory: Normal - Psychological Associated symptoms: Normal affect, Normal mood - Skin Skin Temperature: Warm Skin Moisture: Dry Skin Color: Normal Course - Re-evaluation Re-evalutation: 05/15/18 01:50 Patient did not wait for the results of the gonorrhea and chlamydia so she was treated with azithromycin and Rocephin. She was also treated with Flagyl for her bacterial vaginosis. Patient was discharged home with prescription for Flagyl and instructed to please complete the prescription do not stop because she is feeling better. Patient verbalized understanding and agreement with treatment plan and when she was discharged home. - Vital Signs Vital signs: Temp Pulse Resp BP Pulse Ox 98.4 F 85 16 115/67 100 05/14/18 20:48 05/14/18 20:48 05/14/18 20:48 05/14/18 20:48 05/14/18 20:48 - Laboratory Result Diagrams: 05/14/18 19:30 05/14/18 19:30 Laboratory results interpreted by me: 05/14/18 19:30 Chloride 108 H Discharge - Discharge Clinical Impression: Pelvic pain, Bacterial vaginosis Condition: Stable Disposition: HOME, SELF-CARE Additional Instructions: PELVIC PAIN: There are many causes of pain in the pelvic area. The cause could be the tubes, ovaries, uterus, intestines, appendix, pelvic muscles and connective tissue, or the urinary tract. The cause of your pelvic pain is not clear. However, it seems safe to treat you outside the hospital. If the pain sounds like a temporary problem, we sometimes wait to see if it goes away. Other patients may need additional tests, such as pelvic ultrasound or cultures. Conditions may change. Call us or come back for reexamination if any problems occur, such as: (1) Pain that becomes more severe, steady, or becomes concentrated in one specific area. Also, pain that is more severe with movement or coughing. (2) Vomiting that persists or becomes more frequent. (3) Blood in the vomitus, urine, or bowel movements. Blood in the stool may have a tarry or black appearance. (4) Shaking chills or fever greater than 100 degrees. (5) The abdomen becomes more distended or swollen. (6) Bowel movements cease. (7) Heavy vaginal bleeding. VAGINOSIS, BACTERIAL: Your exam shows you have bacterial vaginosis. This condition is due to an overgrowth of bacteria in the vagina. Symptoms may include vaginal itching or pain, a smelly discharge, and sometimes burning with urination. Normally this is not transmitted by sexual contact. Vaginosis can be treated with oral or topical antibiotics. Metronidazole ( Flagyl) pills are usually effective. Topical vaginal creams include Cleocin and Metro-Gel. You should avoid sexual contact until your symptoms are all better. Call the doctor if you develop pelvic pain, fever, or problems with urination, or if you don't improve as expected. CEPHALOSPORINS: An antibiotic of the cephalosporin class has been prescribed. This type of antibiotic covers a wide variety of infections, including those of the skin, lungs, middle ear, and urinary tract. This antibiotic is somewhat similar to the penicillin family. In rare cases , a person who is allergic to penicillin will also be allergic to this medication. If you have had a severe allergic reaction to penicillin, and have not taken this antibiotic since that time, notify your doctor. Antibiotics which cover many germs ("broad spectrum" antibiotics) are more likely to cause diarrhea or "yeast" infections. Women prone to vaginal yeast problems may suffer an attack after taking this antibiotic. In infants, oral thrush (white spots "stuck" on the cheek) or yeast diaper rash may result. See your doctor if these problems occur. Call the doctor at once if you develop hives, itching, shortness of breath , or lightheadedness. AZITHROMYCIN: Azithromycin (Zithromax) is a broad spectrum antibiotic in the same class as erythromycin. It can treat a variety of bacterial infections, but is most frequently used for respiratory infections. Azithromycin is extremely long-lasting. It accumulates in body tissues and continues to kill bacteria for many days. In order to improve absorption, Azithromycin should be taken at least one hour before or two hours after a meal. It does not have the same strong tendency to upset the stomach as erythromycin and is usually very well tolerated. Patients who have had a rash or other true allergic reactions to erythromycin should not take this medication. Call if you develop gastrointestinal distress, severe diarrhea, rash, hives, itching, or shortness of breath. METRONIDAZOLE: Metronidazole (Flagyl) has been prescribed. This medication is used to kill a type of bacteria called anaerobes, and protozoan parasites such as trichomonas and Giardia. Flagyl often causes a metallic taste in the mouth and mild nausea. Do not use alcohol in any form with Flagyl (including alcohol in medication elixirs). Flagyl interacts with alcohol to cause flushing, palpitations, headache, stomach cramps, and vomiting. Do not use Flagyl if you are taking Antabuse (disulfiram). Call the doctor at once if you develop rash, shortness of breath, itching, or lightheadedness. FOLLOW-UP CARE: If you have been referred to a physician for follow-up care, call the physician s office for an appointment as you were instructed or within the next two days. If you experience worsening or a significant change in your symptoms, notify the physician immediately or return to the Emergency Department at any time for re-evaluation. Prescriptions: Metronidazole [Flagyl 500 mg Tablet] 500 mg PO BID #14 tablet Forms: Elevated Blood Pressure, Smoking Cessation Education, Return to Work Referrals: LAURENT LEAL MD [Primary Care Provider] - Follow up as needed
[2018-05-14 19:36] LABS: APPEARANCE,URINE CLEAR; BILIRUBIN,URINE NEGATIVE (NEGATIVE); COLOR,URINE YELLOW; GLUCOSE, URINE NEGATIVE (NEGATIVE); KETONES,URINE NEGATIVE (NEGATIVE); LEUKOCYTE ESTERASE,URINE NEGATIVE (NEGATIVE); NITRITE,URINE NEGATIVE (NEGATIVE); PROTEIN,URINE NEGATIVE (NEGATIVE); URINE SPECIFIC GRAVITY 1.021; UROBILINOGEN,URINE NEGATIVE mg/dL (<2.0)
[2018-05-14 19:40] LABS: T.VAGINALIS (WET MOUNT) NO TRICHOMONAS SEEN; WBCS (WET MOUNT) 4+ WBCS SEEN; YEAST (WET MOUNT) NO YEAST SEEN
[2018-05-14 19:41] LABS: BACTERIA (WET MOUNT) 4+ BACTERIA SEEN; RBCS (WET MOUNT) NO RBCS SEEN
[2018-05-14 19:42] LABS: ABSOLUTE EOSINOPHILS # (AUTO) 0.3 10^3/uL (0.0-0.6); ABSOLUTE LYMPHOCYTES (AUTO) 3.5 10^3/uL (0.5-4.7); ABSOLUTE MONOCYTES (AUTO) 0.8 10^3/uL (0.1-1.4); ABSOLUTE NEUT (AUTO) 5.3 10^3/uL (1.7-8.2); BASOPHILS % (AUTO) 0.5 % (0-2); EOSINOPHILS % (AUTO) 2.9 % (0-6); HEMATOCRIT 39.6 % (36.0-47.0); HEMOGLOBIN 13.2 g/dL (12.0-15.5); LYMPHOCYTES % (AUTO) 35.2 % (13-45); MEAN CORPUSCULAR HEMOGLOBIN 29.3 pg (27.0-33.4); MEAN CORPUSCULAR HGB CONC 33.2 g/dL (32.0-36.0); MEAN CORPUSCULAR VOLUME 88 fl (80-97); MONOCYTES % (AUTO) 7.7 % (3-13); PLATELET COUNT 294 10^3/uL (150-450); RED BLOOD COUNT 4.49 10^6/uL (3.72-5.28); RED CELL DISTRIBUTION WIDTH 13.6 % (11.5-14.0); SEGMENTED NEUTROPHILS % (AUTO) 53.7 % (42-78); TOTAL CELLS COUNTED % (AUTO) 100 %; WHITE BLOOD COUNT 9.9 10^3/uL (4.0-10.5)
[2018-05-14 19:56] LABS: ALANINE AMINOTRANSFERASE 23 U/L (9-52); ALBUMIN 4.1 g/dL (3.5-5.0); ALKALINE PHOSPHATASE 63 U/L (38-126); ANION GAP 10 (5-19); ASPARTATE AMINO TRANSFERASE 19 U/L (14-36); BILIRUBIN,DIRECT 0.2 mg/dL (0.0-0.4); BILIRUBIN,TOTAL 0.3 mg/dL (0.2-1.3); BLOOD UREA NITROGEN 14 mg/dL (7-20); CALCIUM 9.9 mg/dL (8.4-10.2); CARBON DIOXIDE 26 mmol/L (22-30); CHLORIDE 108 mmol/L (98-107); GLUCOSE 93 mg/dL (75-110); POTASSIUM 4.5 mmol/L (3.6-5.0); SODIUM 143.6 mmol/L (137-145); TOTAL PROTEIN 7.3 g/dL (6.3-8.2)
[2018-05-14] MEDS ORDERED: AZITHROMYCIN 250 MG TABLET PO ONE (20:07)
[2018-05-14] MEDS ORDERED: METRONIDAZOLE 500 MG TABLET PO ONE (20:07)
[2018-05-14] MEDS ORDERED: CEFTRIAXONE INJ 250 MG VIAL IM ONE (20:07)
[2018-05-14] MEDS ORDERED: LIDOCAINE 1% INJ-PF (10 MG/ML) 30 ML SDV INJ ONE (20:07)
[2018-05-14 20:53] VITALS: BP 115/67
[2018-05-14 21:05] LABS: CHLAM PCR NOT DETECTED (NOT DETECT); GON PCR NOT DETECTED (NOT DETECT)
== END 2018-05-14 20:47 | disposition home or self-care (01) ==
LOC: ER 18:36
DX: N76.0 Acute vaginitis (principal); B96.89 Other specified bacterial agents as the cause of diseases classified elsewhere; R10.2 Pelvic and perineal pain; R35.0 Frequency of micturition; R39.15 Urgency of urination; F17.210 Nicotine dependence, cigarettes, uncomplicated; Z88.2 Allergy status to sulfonamides; Z20.2 Contact with and (suspected) exposure to infections with a predominantly sexual mode of transmission
CPT/HCPCS: 99284; 96372; 36415; 87210; 84703; 85025; 80053; 81001; 87491; 87591; Q0144; J3490 ×2; J0696

== ENCOUNTER 2018-05-22 20:18 | Emergency (ER) | payer MEDICAID ==
[2018-05-22 21:00] VITALS: BP 125/81
--- NOTE | 2018-05-22 21:08 | RADIOLOGY REPORT (SQ) ---
EXAM DESCRIPTION: XR KNEE 4 OR MORE VIEWS COMPLETED DATE/TME: 05/22/2018 20:35 CLINICAL HISTORY: 27 years, Female, pain Findings: Bony alignment is anatomic. No fracture or dislocation. No significant joint effusion. Soft tissues are unremarkable. IMPRESSION: No fracture.
[2018-05-22] MEDS ORDERED: KETOROLAC TROMETHAMINE 60 MG/2 ML SDV IM ONE (22:02)
--- NOTE | 2018-05-22 22:06 | ER Document Report ---
ED Extremity Problem, Lower - General Chief Complaint: Knee Pain Stated Complaint: LEFT KNEE PAIN Time Seen by Provider: 05/22/18 21:51 Mode of Arrival: Wheelchair Information source: Patient Notes: 27-year-old female presented to ED for complaint of left knee pain. She states she woke up with knee pain. She states she did not fall or injure it. States she has not worked all weekend so she does not will know why her knee hurts. TRAVEL OUTSIDE OF THE [place] IN LAST 30 DAYS: No - HPI Patient complains to provider of: Pain, Swelling. No: Injury Location: Knee Occurred: This morning Onset/Duration: Gradual Quality of pain: Sharp Severity: Moderate Pain Level: 4 Recent injury: No Associated symptoms: Painful ambulation Exacerbated by: Hanging down, Movement, Walking Relieved by: Nothing - Related Data Allergies/Adverse Reactions: Sulfa (Sulfonamide Antibiotics) Allergy (Mild, Verified 04/18/18 11:43) unknown Past Medical History - General Information source: Patient - Social History Smoking Status: Current Every Day Smoker Cigarette use (# per day): Yes - 15 cigarettes a day Chew tobacco use (# tins/day): No Smoking Education Provided: Yes - 4 minutes Frequency of alcohol use: Occasional Drug Abuse: None Occupation: Her stylist Lives with: Family Family History: DM, Hypertension, Malignancy, Thyroid Disfunction Patient has suicidal ideation: No Patient has homicidal ideation: No - Past Medical History Cardiac Medical History: Reports: Hx Heart Murmur Pulmonary Medical History: Reports: None EENT Medical History: Reports: None Neurological Medical History: Reports: Hx Seizures - as child Renal/ Medical History: Reports: None Malignancy Medical History: Reports: None GI Medical History: Reports: None Musculoskeletal Medical History: Reports Hx Musculoskeletal Trauma Skin Medical History: Reports Hx Cellulitis, Reports Hx MRSA - bilateral axillae Psychiatric Medical History: Reports: None Traumatic Medical History: Reports: None Infectious Medical History: Reports: Hx MRSA Surgical Hx: Negative Past Surgical History: Reports: None - Immunizations Immunizations up to date: Yes Hx Diphtheria, Pertussis, Tetanus Vaccination: Yes - january 2015 Review of Systems - Review of Systems Constitutional: No symptoms reported EENT: No symptoms reported Cardiovascular: No symptoms reported Respiratory: No symptoms reported Gastrointestinal: No symptoms reported Genitourinary: No symptoms reported Female Genitourinary: No symptoms reported Musculoskeletal: Joint pain - Left knee pain, Joint swelling - Swelling to the left lateral knee Skin: No symptoms reported Hematologic/Lymphatic: No symptoms reported Neurological/Psychological: No symptoms reported Physical Exam - Vital signs Vitals: Temp Pulse Resp BP Pulse Ox 99.3 F 94 18 125/81 97 05/22/18 20:18 05/22/18 20:18 05/22/18 20:18 05/22/18 20:18 05/22/18 20:18 Interpretation: Normal - General General appearance: Appears well, Alert - HEENT Head: Normocephalic, Atraumatic Eyes: Normal Pupils: PERRL - Respiratory Respiratory status: No respiratory distress Chest status: Nontender Breath sounds: Normal Chest palpation: Normal - Cardiovascular Rhythm: Regular Heart sounds: Normal auscultation Murmur: No - Abdominal Inspection: Normal Distension: No distension Bowel sounds: Normal Tenderness: Nontender Organomegaly: No organomegaly - Back Back: Normal, Nontender - Extremities General upper extremity: Normal inspection, Nontender, Normal color, Normal ROM , Normal temperature General lower extremity: Normal color, Normal temperature. No: Ceasar's sign Knee: Tender, Pain with ROM, Patellar tendon intact, Tender joint line. No: Abrasion, Deformity, Dislocation, Drawer's test instability, Ecchymosis, Instability, Joint effusion, Laceration, Laxity with valgus stress, Laxity with varus stress, Popliteal fossa tender - Lateral, Unable to bear weight - Neurological Neuro grossly intact: Yes Cognition: Normal Orientation: AAOx4 Shi Coma Scale Eye Opening: Spontaneous Shi Coma Scale Verbal: Oriented Shi Coma Scale Motor: Obeys Commands Shi Coma Scale Total: 15 Speech: Normal Motor strength normal: LUE, RUE, LLE, RLE Sensory: Normal - Psychological Associated symptoms: Normal affect, Normal mood - Skin Skin Temperature: Warm Skin Moisture: Dry Skin Color: Normal Course - Re-evaluation Re-evalutation: 05/22/18 22:06 X-ray is negative. Patient was given instructions on elevation ice ibuprofen knee immobilizer and crutches. Patient was instructed to follow-up with primary doctor and orthopedics. - Vital Signs Vital signs: Temp Pulse Resp BP Pulse Ox 99.3 F 94 18 125/81 97 05/22/18 20:18 05/22/18 20:18 05/22/18 20:18 05/22/18 20:18 05/22/18 20:18 - Diagnostic Test Radiology reviewed: Image reviewed, Reports reviewed Procedures - Immobilization Left Knee Time completed: 22:06 Pre-Proc Neuro Vasc Exam: Normal Immobilizer type: Crutches, Knee immobilizer Performed by: PCT Post-Proc Neuro Vasc Exam: Normal Alignment checked and good: Yes Discharge - Discharge Clinical Impression: Left knee pain Qualifiers: Chronicity: acute Qualified Code(s): M25.562 - Pain in left knee Condition: Stable Disposition: HOME, SELF-CARE Additional Instructions: You were seen today in the emergency room for left knee pain. You have been given a copy of the written report of your left knee x-ray which does not show any abnormalities on the x-ray. You will need to follow-up with orthopedics. KNEE IMMOBILIZING SPLINT: The knee immobilizing splint will protect the injury while healing begins. This type of splint does not allow the knee to bend at all. No running or sports will be possible. If the splint allows painfree walking, it's giving adequate protection. If there is still significant pain, crutches may be needed as well. Don't do anything that hurts. Adjusted the splint, if necessary. The stiffeners on the sides are attached with Velcro, so they can be easily moved to adjust for thigh and calf size. If you need help with these adjustments, come back. You will lose muscle strength in the thigh while using this splint. The doctor will advise you if it's safe to do isometric knee exercises while you use it. USE OF CRUTCHES: The doctor has recommended that you not bear weight at this time. You will need to use crutches. Adjust the crutches so the tops come to about two inches under the armpit while you are standing upright. Use your hands -- not your armpits -- to support your weight. To get into a chair, support yourself with one crutch on the injured side. Hold the chair with the other hand, then lower yourself while putting all your weight on the good leg. Going up stairs is `good leg up, step up, then bring up crutches and bad leg.' Down stairs is `bad leg and crutches down, then bring good leg down.' If you develop numbness or swelling in an arm or hand, you are using the crutches incorrectly. Return if you are having any problems with the crutches. ICE & ELEVATION: Apply ice packs frequently against the painful area. Many different schedules are recommended, such as "20 minutes on, 20 minutes off" or "one hour ice, two hours rest." If you need to work, you may need to go longer between ice treatments. You should plan to have the area ice packed AT LEAST one- fourth of the time. The ice should be applied over the wrap, tape, or splint, or over a layer of cloth -- not directly against the skin. Some ice bags have a built-in cloth and can be put directly on the skin. Your injured part should be elevated as much as possible over the next 48 hours. Try to keep the injury above the level of the heart. Avoid use of the injured area. Elevation and rest will decrease the swelling. USE OF ALCG-HKQ-ROPHNIH IBUPROFEN: Ibuprofen (Advil, Nuprin, Medipren, Motrin IB) is a medication for fever and pain control. In addition, it has anti- inflammatory effects which may be beneficial, especially in the treatment of injuries. It's best to take ibuprofen with food. Persons with ulcer disease or allergy to aspirin should notify their physician of this before taking ibuprofen. Ibuprofen can be given every four to six hours, for a total of four doses daily. Age Pain or fever dose Antiinflammatory dose 6-8 yr 200 mg (1 tab) 200 mg (1 tab) 9-11 yr 200 mg (1 tab) 200-400 mg (1-2 tab) 11-14 yr 200-400 mg (1-2 tab) 400 mg (2 tab) 15-adult 400 mg (2 tab) 600 mg (3 tab) FOLLOW-UP CARE: If you have been referred to a physician for follow-up care, call the physician s office for an appointment as you were instructed or within the next two days. If you experience worsening or a significant change in your symptoms, notify the physician immediately or return to the Emergency Department at any time for re-evaluation. Forms: Return to Work Referrals: LAURENT LEAL MD [Primary Care Provider] - Follow up as needed SREEKANTH RENTERIA MD [ACTIVE STAFF] - Follow up as needed
== END 2018-05-22 22:19 | disposition home or self-care (01) ==
LOC: ER 20:18
DX: M25.562 Pain in left knee (principal); M79.89 Other specified soft tissue disorders; F17.210 Nicotine dependence, cigarettes, uncomplicated
CPT/HCPCS: 99406; 99283; 96372; 73564; L1830; J1885

== ENCOUNTER 2018-12-27 22:02 | Emergency (ER) | payer MEDICAID ==
--- NOTE | 2018-12-28 00:04 | ER Document Report ---
ED Medical Screen (RME) - General Chief Complaint: Lower Abdominal Pain Stated Complaint: STOMACH PAIN Time Seen by Provider: 12/28/18 00:02 Notes: Patient is a 20-year-old female who presents emergency department with a chief complaint of lower abdominal pain. She states that it is a sharp pain. She states that she had sex about a week ago and since then she has had a sharp pain where her IUD is. She is sexually active. Her last menstrual cycle was in the beginning of November. She does not recall the date. Denies any vaginal discharge. Exam: Tender mid lower abdomen. I have greeted and performed a rapid initial assessment of this patient. A comprehensive ED assessment and evaluation of the patient, analysis of test results and completion of medical decision making process will be conducted by an additional ED providers. TRAVEL OUTSIDE OF THE [place] IN LAST 30 DAYS: No - Related Data Allergies/Adverse Reactions: Sulfa (Sulfonamide Antibiotics) Allergy (Mild, Verified 04/18/18 11:43) unknown Past Medical History - Social History Family history: None - Past Medical History Cardiac Medical History: Reports: Hx Heart Murmur Neurological Medical History: Reports: Hx Seizures - as child Renal/ Medical History: Denies: Hx Peritoneal Dialysis Musculoskeltal Medical History: Reports Hx Musculoskeletal Trauma Skin Medical History: Reports Hx Cellulitis, Reports Hx MRSA - bilateral axillae Infectious Medical History: Reports: Hx MRSA - Immunizations Immunizations up to date: Yes Hx Diphtheria, Pertussis, Tetanus Vaccination: Yes - january 2015 Physical Exam - Vital signs Vitals: Temp Pulse Resp BP Pulse Ox 98.0 F 86 18 150/89 H 94 12/27/18 22:12 12/27/18 22:12 12/27/18 22:12 12/27/18 22:12 12/27/18 22:12 Course - Vital Signs Vital signs: Temp Pulse Resp BP Pulse Ox 98.0 F 86 18 150/89 H 94 12/27/18 22:12 12/27/18 22:12 12/27/18 22:12 12/27/18 22:12 12/27/18 22:12
[2018-12-28] MEDS ORDERED: ONDANSETRON 4 MG TAB.RAPDIS PO ONE (00:05)
[2018-12-28] MEDS ORDERED: ACETAMINOPHEN 325 MG TABLET PO ONE (00:05)
--- NOTE | 2018-12-28 01:08 | RADIOLOGY REPORT (SQ) ---
EXAM DESCRIPTION: US PELVIS TRANSVAGINAL COMPLETED DATE/TME: 12/28/2018 00:05 CLINICAL HISTORY: 28 years Female, pelvic pain at IUD Comparison: 05/25/17 Technique: Transvaginal. LIMITATIONS: None. FINDINGS: Malpositioned IUD at the level of the lower uterine segment. 6.4 x 5.8 x 6.4 cm right ovary contains a 5.6 x 5.1 x 5.2 cm hypoechoic lesion may indicate a hemorrhagic cyst or other neoplasm. Recommend ultrasound follow-up in 6-12 weeks. Right ovarian vascularity is present. 10-cm uterus, 0.5-cm endometrial stripe thickness, 3.8 cm cervical length, and 2.8-cm left ovary appear otherwise unremarkable in size, shape, echotexture, and vascularity. No free fluid. IMPRESSION: 1. Malpositioned IUD at the level of the lower uterine segment. 2. 6.4 cm right ovary contains a 5.6 cm hypoechoic lesion may indicate a hemorrhagic cyst or other neoplasm. There is increased risk for developing right ovarian torsion. Recommend ultrasound follow-up in 6-12 weeks.
[2018-12-28 01:22] LABS: ABSOLUTE EOSINOPHILS # (AUTO) 0.3 10^3/uL (0.0-0.6); ABSOLUTE LYMPHOCYTES (AUTO) 3.8 10^3/uL (0.5-4.7); ABSOLUTE MONOCYTES (AUTO) 0.5 10^3/uL (0.1-1.4); ABSOLUTE NEUT (AUTO) 4.5 10^3/uL (1.7-8.2); BASOPHILS % (AUTO) 0.4 % (0-2); EOSINOPHILS % (AUTO) 3.5 % (0-6); HEMATOCRIT 39.7 % (36.0-47.0); HEMOGLOBIN 13.3 g/dL (12.0-15.5); LYMPHOCYTES % (AUTO) 41.6 % (13-45); MEAN CORPUSCULAR HEMOGLOBIN 29.5 pg (27.0-33.4); MEAN CORPUSCULAR HGB CONC 33.5 g/dL (32.0-36.0); MEAN CORPUSCULAR VOLUME 88 fl (80-97); MONOCYTES % (AUTO) 5.3 % (3-13); PLATELET COUNT 232 10^3/uL (150-450); RED CELL DISTRIBUTION WIDTH 13.4 % (11.5-14.0); SEGMENTED NEUTROPHILS % (AUTO) 49.2 % (42-78); TOTAL CELLS COUNTED % (AUTO) 100 %; WHITE BLOOD COUNT 9.1 10^3/uL (4.0-10.5)
[2018-12-28 01:42] LABS: ALANINE AMINOTRANSFERASE 28 U/L (9-52); ALBUMIN 3.9 g/dL (3.5-5.0); ALKALINE PHOSPHATASE 53 U/L (38-126); ANION GAP 7 (5-19); ASPARTATE AMINO TRANSFERASE 16 U/L (14-36); BILIRUBIN,DIRECT 0.2 mg/dL (0.0-0.4); BILIRUBIN,TOTAL 0.2 mg/dL (0.2-1.3); BLOOD UREA NITROGEN 10 mg/dL (7-20); CALCIUM 9.7 mg/dL (8.4-10.2); CARBON DIOXIDE 25 mmol/L (22-30); CHLORIDE 110 mmol/L (98-107); GLUCOSE 110 mg/dL (75-110); POTASSIUM 4.4 mmol/L (3.6-5.0); SODIUM 141.8 mmol/L (137-145); TOTAL PROTEIN 6.7 g/dL (6.3-8.2)
[2018-12-28 03:53] LABS: APPEARANCE,URINE TURBID; BILIRUBIN,URINE NEGATIVE (NEGATIVE); CALCIUM OXALATE CRYSTALS,URINE MODERATE /HPF; COLOR,URINE YELLOW; GLUCOSE, URINE NEGATIVE (NEGATIVE); KETONES,URINE TRACE mg/dL (NEGATIVE); LEUKOCYTE ESTERASE,URINE TRACE (NEGATIVE); NITRITE,URINE NEGATIVE (NEGATIVE); PROTEIN,URINE NEGATIVE (NEGATIVE); URINE SPECIFIC GRAVITY 1.031; UROBILINOGEN,URINE NEGATIVE mg/dL (<2.0)
[2018-12-28] MEDS ORDERED: KETOROLAC TROMETHAMINE 60 MG/2 ML SDV IM ONE (04:17)
--- NOTE | 2018-12-28 04:17 | ER Document Report ---
ED General - General Chief Complaint: Lower Abdominal Pain Stated Complaint: STOMACH PAIN Time Seen by Provider: 12/28/18 00:02 Notes: Patient is a 20-year-old female who presents emergency department with a chief complaint of lower abdominal pain. She states that it is a sharp pain. She states that she had sex about a week ago and since then she has had a sharp pain where her IUD is. She is sexually active. Her last menstrual cycle was in the beginning of November. She does not recall the date. Denies any vaginal discharge. Denies any past surgical history. She is having regular bowel movements. Her last problem was today. Denies any diarrhea. Does admit to some nausea and vomiting. States she feels better after receiving nausea medication and Tylenol in triage. TRAVEL OUTSIDE OF THE [place] IN LAST 30 DAYS: No - Related Data Allergies/Adverse Reactions: Sulfa (Sulfonamide Antibiotics) Allergy (Mild, Verified 04/18/18 11:43) unknown Past Medical History - General Information source: Patient - Social History Smoking Status: Current Every Day Smoker Chew tobacco use (# tins/day): No Frequency of alcohol use: Occasional Drug Abuse: None Family History: DM, Hypertension, Malignancy, Thyroid Disfunction Patient has suicidal ideation: No Patient has homicidal ideation: No - Past Medical History Cardiac Medical History: Reports: Hx Heart Murmur Neurological Medical History: Reports: Hx Seizures - as child Renal/ Medical History: Denies: Hx Peritoneal Dialysis Musculoskeletal Medical History: Reports Hx Musculoskeletal Trauma Skin Medical History: Reports Hx Cellulitis, Reports Hx MRSA - bilateral axillae Infectious Medical History: Reports: Hx MRSA - Immunizations Immunizations up to date: Yes Hx Diphtheria, Pertussis, Tetanus Vaccination: Yes - january 2015 Review of Systems - Review of Systems Notes: REVIEW OF SYSTEMS: CONSTITUTIONAL : Denies recent illness. Denies recent unintentional weight loss. Denies fever, chills, or sweats. EENT: Denies eye, ear, throat, or mouth pain, discharge, or symptoms. Denies nasal or sinus congestion. CARDIOVASCULAR: Denies chest pain. RESPIRATORY: Denies shortness of breath, cough, congestion, difficulty breathing, or wheezing. GASTROINTESTINAL: See HPI GENITOURINARY: Denies difficulty urinating, burning, blood in urine, urgency or frequency. FEMALE GENITOURINARY: See HPI MUSCULOSKELETAL: Denies neck and back pain. Denies joint pain or swelling. SKIN: Denies rash, itchiness, or lesions HEMATOLOGIC : Denies easy bruising or bleeding. LYMPHATIC: Denies swollen, painful, enlarged glands. NEUROLOGICAL: Denies no numbness or tingling denies weakness. Denies headache. Denies altered mental status. Denies alteration in speech. PSYCHIATRIC: Denies stress, anxiety, alteration in sleep patterns, or depression. All other systems reviewed and negative. Physical Exam - Vital signs Vitals: Temp Pulse Resp BP Pulse Ox 98.0 F 86 18 150/89 H 94 12/27/18 22:12 12/27/18 22:12 12/27/18 22:12 12/27/18 22:12 12/27/18 22:12 - Notes Notes: PHYSICAL EXAMINATION: GENERAL: Appears well, healthy, well-nourished, no acute distress. HEAD: Normocephalic, atraumatic. EYES: PERRL, conjunctiva normal, all extraocular movements intact, sclera nonicteric ENT: Moist mucous membranes. NECK: Supple, no noticeable swelling, redness, rash. Normal range of motion. LUNGS: Equal breath sounds bilaterally and clear to auscultation. No wheezes rales or rhonchi. CARDIOVASCULAR: S1-S2, regular rate, regular rhythm. Radial pulses 2+, normal. ABDOMEN: Normoactive bowel sounds. Soft, nontender, no guarding, no rebound tenderness, and no masses palpated. EXTREMITIES: Normal strength and range of motion, no pitting or edema. No cyanosis. NEUROLOGICAL: Moves all extremities upon command. Strength 5/5 in all extremities. PSYCH: Normal mood, normal affect. SKIN: Warm, dry. No rash, lesions, ulcerations noted. Normal skin turgor. COURT ATTENDANT: Tenderness noted to right pelvic area on bimanual exam. No cervical motion tenderness noted. No IUD string visualized. Course - Re-evaluation Re-evalutation: 12/28/18 05:30 Pelvic exam was done with CHRISTINA Lockwood at bedside. The string for the IUD was not visualized on on my exam. She did have a small amount of discharge and tenderness on the right side of her pelvis, consistent with her hemorrhagic cyst that was noted on her pelvic ultrasound. Her hematology, studies are both unremarkable. The IUD was also malpositioned on ultrasound, which is most likely what is causing her pain. 12/28/18 06:29 Patient's wet mount is unremarkable. No trichomoniasis, yeast, or large amount of bacteria was noted. I have a very low suspicion for pelvic inflammatory disease. Her pain on the right lower pelvic area is consistent with her hemorrhagic cyst. I also have a very low suspicion for appendicitis, as the patient is not very tender where the appendix is. I spoke with Dr. Smiley, the [employer] on-call. He is suggesting the patient follow-up with the office outpatient. I relayed the information to the patient and she will follow-up with [facility] first thing in the morning. She will be given Toradol for pain relief at home. I suspect that once the IUD is removed, she will have relief of her pain. She is in agreement with this plan. Verbal discharge instructions were given to the patient. They verbalized understanding. They are stable for discharge. - Vital Signs Vital signs: Temp Pulse Resp BP Pulse Ox 97.7 F 82 18 118/74 98 12/28/18 07:32 12/28/18 07:32 12/28/18 07:32 12/28/18 07:32 12/28/18 07:32 - Laboratory Result Diagrams: 12/28/18 01:10 12/28/18 01:10 Laboratory results interpreted by me: 12/28/18 12/28/18 01:10 02:03 Chloride 110 H Urine Ketones TRACE H Ur Leukocyte Esterase TRACE H Discharge - Discharge Clinical Impression: Pelvic pain, Hemorrhagic ovarian cyst Malpositioned IUD Qualifiers: Encounter type: initial encounter Qualified Code(s): T83.32XA - Displacement of intrauterine contraceptive device, initial encounter Condition: Stable Disposition: HOME, SELF-CARE Additional Instructions: You were seen today in the emergency department for pain in your pelvic region. Your IUD is not positioned correctly. Please follow-up with [facility] in regards to this visit. They can evaluate your IUD and possibly remove it. You also have an ovarian cyst on your right side. The ovarian cyst will resolve on its own. Please you have been prescribed Toradol for pain. Please take 1 tablet every 6 hours as needed. If you have worsening symptoms, or have any symptoms that are worrisome to you, please return to the emergency department. Prescriptions: Ketorolac Tromethamine [Toradol 10 mg Tablet] 10 mg PO Q6HP PRN #20 tablet PRN Reason:
[2018-12-28 04:56] LABS: RBCS (WET MOUNT) NO RBCS SEEN; T.VAGINALIS (WET MOUNT) NO TRICHOMONAS SEEN; WBCS (WET MOUNT) 1+ WBCS SEEN; YEAST (WET MOUNT) NO YEAST SEEN
[2018-12-28 06:21] LABS: CHLAM PCR NOT DETECTED (NOT DETECT); GON PCR NOT DETECTED (NOT DETECT)
[2018-12-28] MEDS ORDERED: ONDANSETRON ODT 4 MG TAB (6 TAB/ER DISP) PO PRN (06:39)
[2018-12-28 07:32] VITALS: BP 118/74
== END 2018-12-28 07:32 | disposition home or self-care (01) ==
LOC: ER 22:02
DX: N83.201 Unspecified ovarian cyst, right side (principal); T83.32XA Displacement of intrauterine contraceptive device, initial encounter; Y76.8 Miscellaneous obstetric and gynecological devices associated with adverse incidents, not elsewhere classified; R11.2 Nausea with vomiting, unspecified; Z88.2 Allergy status to sulfonamides; F17.200 Nicotine dependence, unspecified, uncomplicated
CPT/HCPCS: 99284; 96372; 36415; 87210; 85025; 81025; 80053; 81001; 87491; 87591; 76830; 93976; J3490; J1885; S0119

== ENCOUNTER 2019-01-19 00:47 | Emergency (ER) | payer MEDICAID ==
[2019-01-19] MEDS ORDERED: ONDANSETRON HCL INJ/PF 4 MG/2 ML SDV IV ONE ×2 (04:45→07:00)
[2019-01-19] MEDS ORDERED: OXYCODONE-ACETAMINOPHEN 5-325 MG TABLET PO ONE (04:45)
[2019-01-19] MEDS ORDERED: NORMAL SALINE 1000 ML 1,000 ML IV ONE (04:46)
--- NOTE | 2019-01-19 04:47 | ER Document Report ---
ED Medical Screen (RME) - General Chief Complaint: Lower Abdominal Pain Stated Complaint: ABDOMINAL PAIN Time Seen by Provider: 01/19/19 04:42 Notes: 28-year-old female chief complaint of abdominal pain and vomiting. She states that the pain was actually starting in her lower abdomen/pelvis, which sharp, she vomited 4 times during the day, now she has both upper and lower abdominal pain. Denies flank pain, fever/chills, vaginal bleeding or discharge. Reports history of ovarian cysts, denies any medical history otherwise. TRAVEL OUTSIDE OF THE [place] IN LAST 30 DAYS: No - Related Data Allergies/Adverse Reactions: Sulfa (Sulfonamide Antibiotics) Allergy (Mild, Verified 04/18/18 11:43) unknown Past Medical History - Social History Family history: None - Past Medical History Cardiac Medical History: Reports: Hx Heart Murmur Neurological Medical History: Reports: Hx Seizures - as child Renal/ Medical History: Denies: Hx Peritoneal Dialysis Musculoskeltal Medical History: Reports Hx Musculoskeletal Trauma Skin Medical History: Reports Hx Cellulitis, Reports Hx MRSA - bilateral axillae Infectious Medical History: Reports: Hx MRSA - Immunizations Immunizations up to date: Yes Hx Diphtheria, Pertussis, Tetanus Vaccination: Yes - january 2015 Physical Exam - Vital signs Vitals: Temp Pulse Resp BP Pulse Ox 98.4 F 77 16 148/84 H 100 01/19/19 01:19 01/19/19 01:19 01/19/19 01:19 01/19/19 01:19 01/19/19 01:19 - Abdominal Tenderness: Tender - Diffusely minimally tender, more tender in the right pelvic area, no rigidity or guarding Course - Re-evaluation Re-evalutation: I have greeted and performed a rapid initial assessment of this patient. A comprehensive ED assessment and evaluation of the patient, analysis of test results and completion of the medical decision making process will be conducted by additional ED providers. - Vital Signs Vital signs: Temp Pulse Resp BP Pulse Ox 98.4 F 77 16 148/84 H 100 01/19/19 01:19 01/19/19 01:19 01/19/19 01:19 01/19/19 01:19 01/19/19 01:19 - Laboratory Result Diagrams: 01/19/19 04:35 01/19/19 04:35
[2019-01-19 04:53] LABS: ABSOLUTE EOSINOPHILS # (AUTO) 0.3 10^3/uL (0.0-0.6); ABSOLUTE LYMPHOCYTES (AUTO) 3.4 10^3/uL (0.5-4.7); ABSOLUTE MONOCYTES (AUTO) 0.6 10^3/uL (0.1-1.4); ABSOLUTE NEUT (AUTO) 5.6 10^3/uL (1.7-8.2); BASOPHILS % (AUTO) 0.3 % (0-2); EOSINOPHILS % (AUTO) 3.4 % (0-6); HEMOGLOBIN 13.3 g/dL (12.0-15.5); LYMPHOCYTES % (AUTO) 34.1 % (13-45); MEAN CORPUSCULAR HEMOGLOBIN 29.3 pg (27.0-33.4); MEAN CORPUSCULAR HGB CONC 33.3 g/dL (32.0-36.0); MEAN CORPUSCULAR VOLUME 88 fl (80-97); MONOCYTES % (AUTO) 6.2 % (3-13); PLATELET COUNT 219 10^3/uL (150-450); RED BLOOD COUNT 4.55 10^6/uL (3.72-5.28); RED CELL DISTRIBUTION WIDTH 13.5 % (11.5-14.0); TOTAL CELLS COUNTED % (AUTO) 100 %
[2019-01-19 05:12] LABS: ALANINE AMINOTRANSFERASE 26 U/L (9-52); ALBUMIN 3.7 g/dL (3.5-5.0); ALKALINE PHOSPHATASE 56 U/L (38-126); ANION GAP 6 (5-19); ASPARTATE AMINO TRANSFERASE 17 U/L (14-36); BILIRUBIN,DIRECT 0.2 mg/dL (0.0-0.4); BILIRUBIN,TOTAL 0.2 mg/dL (0.2-1.3); BLOOD UREA NITROGEN 13 mg/dL (7-20); CALCIUM 9.5 mg/dL (8.4-10.2); CARBON DIOXIDE 25 mmol/L (22-30); CHLORIDE 112 mmol/L (98-107); GLUCOSE 117 mg/dL (75-110); LIPASE 127.4 U/L (23-300); SODIUM 143.3 mmol/L (137-145); TOTAL PROTEIN 6.6 g/dL (6.3-8.2)
[2019-01-19 05:15] LABS: APPEARANCE,URINE CLOUDY; BILIRUBIN,URINE NEGATIVE (NEGATIVE); COLOR,URINE YELLOW; GLUCOSE, URINE NEGATIVE (NEGATIVE); KETONES,URINE NEGATIVE (NEGATIVE); LEUKOCYTE ESTERASE,URINE MODERATE (NEGATIVE); NITRITE,URINE NEGATIVE (NEGATIVE); PROTEIN,URINE NEGATIVE (NEGATIVE); URINE SPECIFIC GRAVITY 1.026
--- NOTE | 2019-01-19 06:50 | RADIOLOGY REPORT (SQ) ---
EXAM DESCRIPTION: US PELVIS TRANSVAGINAL COMPLETED DATE/TME: 01/19/2019 04:46 CLINICAL HISTORY: 28 years Female, right pelvic pain, vomiting, hx cysts Comparison: None. Technique: Transvaginal. LIMITATIONS: None. FINDINGS: 9-cm uterus, 1-cm endometrial stripe thickness, 3-cm right ovary, and 3-cm left ovary appear normal in size, shape, echotexture, and vascularity. No free fluid. IMPRESSION: Normal pelvic sonogram.
[2019-01-19] MEDS ORDERED: KETOROLAC TROMETHAMINE INJ/PF 30 MG/1 ML SDV IV ONE (07:00)
[2019-01-19] MEDS ORDERED: ONDANSETRON ODT 4 MG TAB (6 TAB/ER DISP) PO PRN (07:03)
--- NOTE | 2019-01-19 07:05 | ER Document Report ---
ED General - General Chief Complaint: Lower Abdominal Pain Stated Complaint: ABDOMINAL PAIN Time Seen by Provider: 01/19/19 04:42 Primary Care Provider: DARIEN CHIN MD [Primary Care Provider] - Follow up as needed TRAVEL OUTSIDE OF THE [place] IN LAST 30 DAYS: No - HPI Notes: Patient is a 28-year-old female presents emergency department for evaluation of abdominal pain. She states is been present for about a week, became more significant last night. She states she had 4-5 episodes of nonbloody, nonbilious emesis in the last 24 hours. She is also been having some diarrhea. No keyla fever although she does admit to some chills. No dysuria or hematuria. States her pain is crampy, waxes and wanes. Nothing seems to make it better or worse. She thought it may be related to an ovarian cysts, of which she has a history. - Related Data Allergies/Adverse Reactions: Sulfa (Sulfonamide Antibiotics) Allergy (Mild, Verified 04/18/18 11:43) unknown Past Medical History - General Information source: Patient - Social History Smoking Status: Current Some Day Smoker Frequency of alcohol use: None Drug Abuse: None Family History: DM, Hypertension, Malignancy - Mother with cervical cancer, Thyroid Disfunction Patient has suicidal ideation: No Patient has homicidal ideation: No - Past Medical History Cardiac Medical History: Reports: Hx Heart Murmur Neurological Medical History: Reports: Hx Seizures - as child Renal/ Medical History: Denies: Hx Peritoneal Dialysis Musculoskeletal Medical History: Reports Hx Musculoskeletal Trauma Skin Medical History: Reports Hx Cellulitis, Reports Hx MRSA - bilateral axillae Infectious Medical History: Reports: Hx MRSA - Immunizations Immunizations up to date: Yes Hx Diphtheria, Pertussis, Tetanus Vaccination: Yes - january 2015 Review of Systems - Review of Systems Constitutional: See HPI EENT: No symptoms reported Cardiovascular: No symptoms reported Respiratory: No symptoms reported Gastrointestinal: See HPI Genitourinary: No symptoms reported Female Genitourinary: No symptoms reported Musculoskeletal: No symptoms reported Skin: No symptoms reported Neurological/Psychological: No symptoms reported Physical Exam - Vital signs Vitals: Temp Pulse Resp BP Pulse Ox 98.4 F 77 16 148/84 H 100 01/19/19 01:19 01/19/19 01:19 01/19/19 01:01/19/19 01:01/19/19 01:19 - Notes Notes: Vital signs reviewed, please refer to chart. Head is normocephalic, atraumatic. Pupils equal round, reactive to light. Neck is supple without meningismus. Heart is regular rate and rhythm. Lungs are clear to auscultation bilaterally. Abdomen is soft, diffusely tender without rebound or guarding, normoactive bowel sounds throughout. Extremities without cyanosis, clubbing. Posterior calves are nontender. Peripheral pulses are equal. Skin is warm and dry. Patient is awake, alert, neurological exam is nonfocal. Course - Re-evaluation Re-evalutation: 01/19/19 07:02 Patient presents emergency department for evaluation of abdominal pain, nausea, vomiting, diarrhea. She had laboratory investigations, medication, and imaging as ordered through triage. Laboratory investigations were entirely unremarkable. Transvaginal ultrasound failed to reveal any significant pelvic pathology. She has a negative genitourinary review of systems. My suspicion is that this may be a viral gastroenteritis. Her abdomen remains tender but it is diffusely so. At this point I will go ahead and send her home with Marta. She is to follow-up with her primary care provider next week. She is to return to the ED with worsening or new concerning symptoms of any sort. - Vital Signs Vital signs: Temp Pulse Resp BP Pulse Ox 97.7 F 74 17 128/67 H 99 01/19/19 07:15 01/19/19 07:15 01/19/19 07:15 01/19/19 07:15 01/19/19 07:15 - Laboratory Result Diagrams: 01/19/19 04:35 01/19/19 04:35 Laboratory results interpreted by me: 01/19/19 01/19/19 04:35 04:55 Chloride 112 H Glucose 117 H Urine Urobilinogen 2.0 H Ur Leukocyte Esterase MODERATE H Discharge - Discharge Clinical Impression: Generalized abdominal pain Nausea and vomiting Qualifiers: Vomiting type: unspecified Vomiting Intractability: non-intractable Qualified Code(s): R11.2 - Nausea with vomiting, unspecified Diarrhea Qualifiers: Diarrhea type: presumed infectious Qualified Code(s): R19.7 - Diarrhea, unspecified Condition: Stable Disposition: HOME, SELF-CARE Instructions: Abdominal Pain ([facility]), Diarrhea, Nonspecific ([facility]), Toradol Injection ([facility]), Vomiting ([facility]) Additional Instructions: Rest, stay well-hydrated with small, frequent sips of fluids. Zofran as needed for nausea. Take Tylenol as needed for pain. Follow-up with your primary care provider next week. If you develop worsening or new concerning symptoms of any sort, return immediately to the emergency department for reevaluation. Forms: Return to Work Referrals: DARIEN CHIN MD [Primary Care Provider] - Follow up as needed
[2019-01-19 07:19] VITALS: BP 128/67
== END 2019-01-19 07:23 | disposition home or self-care (01) ==
LOC: ER 00:47
DX: R10.84 Generalized abdominal pain (principal); R10.817 Generalized abdominal tenderness; R11.2 Nausea with vomiting, unspecified; R19.7 Diarrhea, unspecified; R68.83 Chills (without fever); Z87.42 Personal history of other diseases of the female genital tract; Z88.2 Allergy status to sulfonamides; F17.200 Nicotine dependence, unspecified, uncomplicated
CPT/HCPCS: 96376; 99284; 96361; 96374; 96375; 36415; 83690; 84703; 85025; 80053; 81001; 76830; 93976; J1885; J2405; J7030

== ENCOUNTER 2019-03-12 20:53 | Emergency (ER) | payer MEDICAID ==
[2019-03-12] MEDS ORDERED: DIPHENHYDRAMINE HCL 50 MG/ML VIAL IV ONE (22:38)
[2019-03-12] MEDS ORDERED: PROCHLORPERAZINE EDISYLATE INJ 10 MG/2 ML VIAL IV ONE (22:38)
[2019-03-12] MEDS ORDERED: KETOROLAC TROMETHAMINE INJ/PF 30 MG/1 ML SDV IV ONE (22:38)
[2019-03-12] MEDS ORDERED: ACETAMINOPHEN 325 MG TABLET PO ONE (22:38)
[2019-03-12] MEDS ORDERED: NORMAL SALINE 1000 ML 1,000 ML IV ONE (22:40)
--- NOTE | 2019-03-12 22:41 | ER Document Report ---
ED Medical Screen (RME) - General Chief Complaint: Vomiting/Diarrhea Stated Complaint: VOMITING,CHILLS Time Seen by Provider: 03/12/19 22:37 Primary Care Provider: DARIEN CHIN MD [Primary Care Provider] - Follow up as needed Mode of Arrival: Ambulatory Information source: Patient Notes: 28-year-old female presents to ED for complaint of being cold and clammy yest erday with no other symptoms. She states she woke up this morning with a headache nausea vomiting and diarrhea. She states she vomited 5 times today and had 2 diarrhea stools. Only medical history is ovarian cyst. She states she smokes a half a pack of cigarettes a day. Patient is alert oriented respirations regular and unlabored in no acute distress during interview. Patient was nontoxic in appearance. I have greeted and performed a rapid initial assessment of this patient. A comprehensive ED assessment and evaluation of the patient, analysis of test results and completion of medical decision making process will be conducted by an additional ED providers. TRAVEL OUTSIDE OF THE [place] IN LAST 30 DAYS: No - Related Data Allergies/Adverse Reactions: Sulfa (Sulfonamide Antibiotics) Allergy (Mild, Verified 04/18/18 11:43) unknown Past Medical History - Social History Family history: None - Past Medical History Cardiac Medical History: Reports: Hx Heart Murmur Neurological Medical History: Reports: Hx Seizures - as child Renal/ Medical History: Denies: Hx Peritoneal Dialysis Musculoskeltal Medical History: Reports Hx Musculoskeletal Trauma Skin Medical History: Reports Hx Cellulitis, Reports Hx MRSA - bilateral axillae Infectious Medical History: Reports: Hx MRSA - Immunizations Immunizations up to date: Yes Hx Diphtheria, Pertussis, Tetanus Vaccination: Yes - january 2015 Physical Exam - Vital signs Vitals: Temp Pulse Resp BP Pulse Ox 98.2 F 102 H 16 139/79 H 99 03/12/19 21:15 03/12/19 21:15 03/12/19 21:15 03/12/19 21:15 03/12/19 21:15 Course - Vital Signs Vital signs: Temp Pulse Resp BP Pulse Ox 98.2 F 102 H 16 139/79 H 99 03/12/19 21:15 03/12/19 21:15 03/12/19 21:15 03/12/19 21:15 03/12/19 21:15 Doctor's Discharge - Discharge Referrals: DARIEN CHIN MD [Primary Care Provider] - Follow up as needed
--- NOTE | 2019-03-13 02:09 | ER Document Report ---
ED General - General Chief Complaint: Vomiting/Diarrhea Stated Complaint: VOMITING,CHILLS Time Seen by Provider: 03/12/19 22:37 Primary Care Provider: DARIEN CHIN MD [Primary Care Provider] - Follow up in 3-5 days Mode of Arrival: Ambulatory Notes: Patient is a 28-year-old female that presents to the emergency department for chief complaint of nausea, vomiting and diarrhea. Patient states that she started having nausea, vomiting diarrhea over the past few days, worse today, she started getting a migraine, which she has a history of. She has not noticed any blood in the vomit or stool. She denies having any significant abdominal pain at this time. Denies any dysuria hematuria. Denies any fevers, chills, night sweats, chest pain or shortness of breath. Currently rates her headache as a 3 out of 10, describes a similar to her migraines, on the left side. Denies any blurred vision, numbness, weakness or tingling. Past Medical History: Ovarian cyst, migraines Past Surgical History: Denies surgical history Social History: Admits to smoking cigarettes, denies alcohol or illicit drug use. Family History: Reviewed and noncontributory for presenting illness Allergies: Reviewed, see documented allergy list. REVIEW OF SYSTEMS: Other than noted above, the 12 point review of systems was reviewed with the patient and were negative, all pertinent findings are included in the HPI. PHYSICAL EXAMINATION: Vital signs reviewed, nursing noted reviewed. GENERAL: Well-appearing, well-nourished and in no acute distress. HEAD: Atraumatic, normocephalic. EYES: Eyes appear normal, extraocular movements intact, sclera anicteric, conjunctiva are normal. PERRLA ENT: nares patent, oropharynx clear without exudates. Moist mucous membranes. NECK: Normal range of motion, supple without lymphadenopathy LUNGS: Breath sounds clear to auscultation bilaterally and equal. No wheezes rales or rhonchi. HEART: Regular rate and rhythm without murmurs ABDOMEN: Soft, nontender, normoactive bowel sounds. No rebound, guarding, or rigidity. No masses appreciated. EXTREMITIES: Nontender, good range of motion, no pitting or edema. NEUROLOGICAL: No focal neurological deficits. Moves all extremities spontaneously Motor and sensory grossly intact on exam. PSYCH: Normal mood, normal affect. SKIN: Warm, Dry, normal turgor, no rashes or lesions noted on exposed skin TRAVEL OUTSIDE OF THE [place] IN LAST 30 DAYS: No - Related Data Allergies/Adverse Reactions: Sulfa (Sulfonamide Antibiotics) Allergy (Mild, Verified 04/18/18 11:43) unknown Past Medical History - General Information source: Patient - Social History Smoking Status: Current Every Day Smoker Family History: DM, Hypertension, Malignancy - Mother with cervical cancer, Thyroid Disfunction - Past Medical History Cardiac Medical History: Reports: Hx Heart Murmur Neurological Medical History: Reports: Hx Seizures - as child Renal/ Medical History: Denies: Hx Peritoneal Dialysis Musculoskeletal Medical History: Reports Hx Musculoskeletal Trauma Skin Medical History: Reports Hx Cellulitis, Reports Hx MRSA - bilateral axillae Infectious Medical History: Reports: Hx MRSA - Immunizations Immunizations up to date: Yes Hx Diphtheria, Pertussis, Tetanus Vaccination: Yes - january 2015 Physical Exam - Vital signs Vitals: Temp Pulse Resp BP Pulse Ox 98.2 F 102 H 16 139/79 H 99 03/12/19 21:15 03/12/19 21:15 03/12/19 21:15 03/12/19 21:15 03/12/19 21:15 Course - Re-evaluation Re-evalutation: Patient seen and examined vital signs reviewed. Laboratory data and/or imaging were ordered as appropriate for the patient's presenting symptoms and complaint, with consideration of any critical or life threatening conditions that may be associated with their obtained history and exam as noted above. Patient was treated with IV fluids and antiemetics, and Toradol Results were reviewed when available and demonstrated unremarkable blood work The patient was re-evaluated and was stable and improved Evaluation was most consistent with nonspecific nausea, vomiting diarrhea, likely viral gastroenteritis, and migraine headache, patient was improved, will discharge her home with Zofran and advised follow-up. Results were discussed with the patient at this point, after careful consideration I feel that that patient can be discharged from the emergency department, the patient was educated treatments and reasons to return to the emergency department based on their presumed diagnosis as noted above, they were advised to followup with a primary care physician in 2-3 days. Patient was agreeable to plan of care. *Note is created using voice recognition software and may contain spelling, syntax or grammatical errors. Laboratory 03/12/19 03/13/19 03/13/19 02:37 02:37 02:37 WBC RBC Hgb Hct MCV MCH MCHC RDW Plt Count Lymph % (Auto) [place] % (Auto) Eos % (Auto) Baso % (Auto) Absolute Neuts (auto) Absolute Lymphs (auto) Absolute Monos (auto) Absolute Eos (auto) Absolute Basos (auto) Seg Neutrophils % Sodium 139.3 Potassium 4.3 Chloride 109 H Carbon Dioxide 23 Anion Gap 7 BUN 14 Creatinine 0.87 Est GFR ( Amer) > 60 Est GFR (MDRD) Non-Af > 60 Glucose 114 H Calcium 9.4 Total Bilirubin 0.4 Direct Bilirubin 0.3 Neonat Total Bilirubin Not Reportable Neonat Direct Bilirubin Not Reportable Neonat Indirect Bili Not Reportable AST 25 ALT 29 Alkaline Phosphatase 63 Total Protein 7.7 Albumin 4.2 Lipase 84.4 TSH Serum HCG, Qual NEGATIVE 03/13/19 03/13/19 02:37 02:37 WBC 6.6 RBC 4.52 Hgb 13.0 Hct 39.2 MCV 87 MCH 28.7 MCHC 33.2 RDW 13.7 Plt Count 265 Lymph % (Auto) 36.7 Summit % (Auto) 11.1 Eos % (Auto) 4.0 Baso % (Auto) 0.6 Absolute Neuts (auto) 3.1 Absolute Lymphs (auto) 2.4 Absolute Monos (auto) 0.7 Absolute Eos (auto) 0.3 Absolute Basos (auto) 0.0 Seg Neutrophils % 47.6 Sodium Potassium Chloride Carbon Dioxide Anion Gap BUN Creatinine Est GFR ( Amer) Est GFR (MDRD) Non-Af Glucose Calcium Total Bilirubin Direct Bilirubin Neonat Total Bilirubin Neonat Direct Bilirubin Neonat Indirect Bili AST ALT Alkaline Phosphatase Total Protein Albumin Lipase TSH 2.50 Serum HCG, Qual - Vital Signs Vital signs: Temp Pulse Resp BP Pulse Ox 98.2 F 80 18 139/74 H 98 03/13/19 05:15 03/13/19 05:15 03/13/19 05:15 03/13/19 05:15 03/13/19 05:15 - Laboratory Result Diagrams: 03/13/19 02:37 03/13/19 02:37 Laboratory results interpreted by me: 03/13/19 02:37 Chloride 109 H Glucose 114 H Discharge - Discharge Clinical Impression: Nausea vomiting and diarrhea Condition: Stable Disposition: HOME, SELF-CARE Instructions: Diarrhea, Nonspecific ([facility]), Vomiting ([facility]) Additional Instructions: Please follow-up with your primary care physician, [facility], every 8 hours if needed, if your symptoms are worsening or not improving, do not hesitate to return to the emergency department for repeat evaluation. Forms: Return to Work Referrals: DARIEN CHIN MD [Primary Care Provider] - Follow up in 3-5 days
[2019-03-13] MEDS ORDERED: PROCHLORPERAZINE EDISYLATE INJ 10 MG/2 ML VIAL ONE (02:44)
[2019-03-13] MEDS ORDERED: KETOROLAC TROMETHAMINE INJ/PF 30 MG/1 ML SDV ONE (02:44)
[2019-03-13] MEDS ORDERED: DIPHENHYDRAMINE HCL 50 MG/ML VIAL ONE (02:44)
[2019-03-13 03:19] LABS: ALBUMIN 4.2 g/dL (3.5-5.0); ALKALINE PHOSPHATASE 63 U/L (38-126); ANION GAP 7 (5-19); ASPARTATE AMINO TRANSFERASE 25 U/L (14-36); BILIRUBIN,DIRECT 0.3 mg/dL (0.0-0.4); BILIRUBIN,TOTAL 0.4 mg/dL (0.2-1.3); BLOOD UREA NITROGEN 14 mg/dL (7-20); CALCIUM 9.4 mg/dL (8.4-10.2); CARBON DIOXIDE 23 mmol/L (22-30); CHLORIDE 109 mmol/L (98-107); GLUCOSE 114 mg/dL (75-110); POTASSIUM 4.3 mmol/L (3.6-5.0); TOTAL PROTEIN 7.7 g/dL (6.3-8.2)
[2019-03-13 03:35] LABS: HEMATOCRIT 39.2 % (36.0-47.0); LYMPHOCYTES % (AUTO) 36.7 % (13-45); MEAN CORPUSCULAR HEMOGLOBIN 28.7 pg (27.0-33.4); MEAN CORPUSCULAR HGB CONC 33.2 g/dL (32.0-36.0); MEAN CORPUSCULAR VOLUME 87 fl (80-97); PLATELET COUNT 265 10^3/uL (150-450); RED BLOOD COUNT 4.52 10^6/uL (3.72-5.28); RED CELL DISTRIBUTION WIDTH 13.7 % (11.5-14.0); SEGMENTED NEUTROPHILS % (AUTO) 47.6 % (42-78); WHITE BLOOD COUNT 6.6 10^3/uL (4.0-10.5)
[2019-03-13 03:36] LABS: ABSOLUTE EOSINOPHILS # (AUTO) 0.3 10^3/uL (0.0-0.6); ABSOLUTE LYMPHOCYTES (AUTO) 2.4 10^3/uL (0.5-4.7); ABSOLUTE MONOCYTES (AUTO) 0.7 10^3/uL (0.1-1.4); ABSOLUTE NEUT (AUTO) 3.1 10^3/uL (1.7-8.2); BASOPHILS % (AUTO) 0.6 % (0-2); MONOCYTES % (AUTO) 11.1 % (3-13); TOTAL CELLS COUNTED % (AUTO) 100 %
[2019-03-13] MEDS ORDERED: ACETAMINOPHEN 325 MG TABLET ONE (03:44)
[2019-03-13] MEDS ORDERED: ONDANSETRON ODT 4 MG TAB (6 TAB/ER DISP) PO PRN (04:49)
[2019-03-13 05:17] VITALS: BP 139/74
== END 2019-03-13 05:15 | disposition home or self-care (01) ==
LOC: ER 20:53
DX: R11.2 Nausea with vomiting, unspecified (principal); R19.7 Diarrhea, unspecified; R51 Headache; F17.210 Nicotine dependence, cigarettes, uncomplicated
CPT/HCPCS: 36415; 83690; 84443; 84703; 85025; 80053; J3490; J1200; J1885; J0780; J7030; 96361; 96374; 96375; 99284

== ENCOUNTER 2019-03-16 02:28 | Emergency (ER) | payer MEDICAID ==
--- NOTE | 2019-03-16 06:20 | ER Document Report ---
HPI - HPI Patient complains to provider of: Vaginal tear Time Seen by Provider: 03/16/19 05:43 Pain Level: 1 Context: Patient is a 28-year-old female presents to the emergency department for a tear in her vaginal area. Patient voices approximately 2 weeks ago she had sexual intercourse. States she feels as though she experienced a generalized tear in that region. Patient states she had some generalized pain but has not looked at her vagina until this morning. Patient states "I do not like how it looks." Patient is denying any vaginal discharge or dysuria. Patient's denying any fevers. - REPRODUCTIVE Reproductive: DENIES: : Past Medical History - General Information source: Patient - Social History Smoking Status: Unknown if Ever Smoked Family History: DM, Hypertension, Malignancy - Mother with cervical cancer, Thyroid Disfunction Patient has suicidal ideation: No Patient has homicidal ideation: No - Past Medical History Cardiac Medical History: Reports: Hx Heart Murmur Neurological Medical History: Reports: Hx Seizures - as child Renal/ Medical History: Denies: Hx Peritoneal Dialysis Musculoskeletal Medical History: Reports Hx Musculoskeletal Trauma Skin Medical History: Reports Hx Cellulitis, Reports Hx MRSA - bilateral axillae Infectious Medical History: Reports: Hx MRSA - Immunizations Immunizations up to date: Yes Hx Diphtheria, Pertussis, Tetanus Vaccination: Yes - january 2015 Vertical Provider Document - CONSTITUTIONAL Agree With Documented VS: Yes Notes: GENERAL: Obese, alert, interacts well. No acute distress. HEAD: Normocephalic, atraumatic. EYES: Pupils equal, round, and reactive to light. Extraocular movements intact. ENT: Oral mucosa moist, tongue midline. NECK: Full range of motion. Supple. Trachea midline. LUNGS: Clear to auscultation bilaterally, no wheezes, rales, or rhonchi. No respiratory distress. HEART: Regular rate and rhythm. No murmur ABDOMEN: Soft, non-tender. Non-distended. Bowel sounds present in all 4 quadrants. EXTREMITIES: Moves all 4 extremities spontaneously. No edema, normal radial and dorsalis pedis pulses bilaterally. No cyanosis. BACK: no cervical, thoracic, lumbar midline tenderness. No saddle anesthesia, normal distal neurovascular exam. NEUROLOGICAL: Alert and oriented x3. Normal speech. cranial nerves II through XII grossly intact. PSYCH: Normal affect, normal mood. SKIN: Warm, dry, normal turgor. superficial vertical laceration noted 0600 below the vagina in the perineum region. does not extend to anus. - INFECTION CONTROL TRAVEL OUTSIDE OF THE [place] IN LAST 30 DAYS: No Course - Re-evaluation Re-evalutation: 03/16/19 06:20 Discussed this case with my attending Dr. Pearson who does not recommend laceration repair 2 weeks out from injury. Use Bactroban ointment with sitz baths. follow up with PCP. Discussed with Pt at bedside, stable for d/c. - Vital Signs Vital signs: Temp Pulse Resp BP Pulse Ox 98.2 F 107 H 148/87 H 100 03/16/19 02:34 03/16/19 02:34 03/16/19 02:34 03/16/19 02:34 Discharge - Discharge Clinical Impression: Perineal laceration Condition: Stable Disposition: HOME, SELF-CARE Instructions: Antibiotic Ointment Protection ([facility]) Additional Instructions: As we discussed you have been seen and treated in the emergency department for a laceration in your perineum. Please use topical antibiotic ointment up to 3 times a day. Please also use sitz bath's twice a day. This is warm water with Epsom salt. Please follow-up with your primary care provider in the next 24 to 48 hours. Please return to the emergency room for any concerns. Prescriptions: Mupirocin [Bactroban 2% Ointment 22 gm] 22 applic TP TID #2 tube Referrals: JACOBO RYDER PA [Primary Care Provider] - Follow up as needed
[2019-03-16 06:37] VITALS: BP 125/77
== END 2019-03-16 06:37 | disposition home or self-care (01) ==
LOC: ER 02:28
DX: S31.41XA Laceration without foreign body of vagina and vulva, initial encounter (principal); X58.XXXA Exposure to other specified factors, initial encounter; Z86.14 Personal history of Methicillin resistant Staphylococcus aureus infection
CPT/HCPCS: 99283

== ENCOUNTER 2019-05-18 10:08 | Emergency (ER) | payer MEDICAID ==
--- NOTE | 2019-05-18 10:41 | ER Document Report ---
ED Medical Screen (RME) - General Chief Complaint: Abdominal Pain Stated Complaint: ABDOMINAL PAIN,NAUSEA Time Seen by Provider: 05/18/19 10:38 Primary Care Provider: JACOBO RYDER PA [Primary Care Provider] - Follow up as needed Mode of Arrival: Ambulatory Information source: Patient Notes: 28-year-old female presents to ED for complaint of abdominal pain in the middle of her abdomen from left to right for about 2 weeks. States she does have nausea no vomiting or diarrhea. Last menstrual cycle was the beginning of March states her test was positive. She states she was told in her last visit that she had an ovarian cyst she thinks on the left. 4 para 2. She states the pain comes and goes, kind of sharp pain is a3/5 at this time. 1/2 pack per day, no alcohol no, no drugs. I have greeted and performed a rapid initial assessment of this patient. A comprehensive ED assessment and evaluation of the patient, analysis of test re sults and completion of medical decision making process will be conducted by an additional ED providers. TRAVEL OUTSIDE OF THE [place] IN LAST 30 DAYS: No - Related Data Allergies/Adverse Reactions: Sulfa (Sulfonamide Antibiotics) Allergy (Mild, Verified 04/18/18 11:43) unknown Past Medical History - Social History Family history: None - Past Medical History Cardiac Medical History: Reports: Hx Heart Murmur Neurological Medical History: Reports: Hx Seizures - as child Renal/ Medical History: Denies: Hx Peritoneal Dialysis Musculoskeltal Medical History: Reports Hx Musculoskeletal Trauma Skin Medical History: Reports Hx Cellulitis, Reports Hx MRSA - bilateral axillae Infectious Medical History: Reports: Hx MRSA - Immunizations Immunizations up to date: Yes Hx Diphtheria, Pertussis, Tetanus Vaccination: Yes - january 2015 Physical Exam - Vital signs Vitals: Temp Pulse Resp BP Pulse Ox 98.1 F 99 18 149/87 H 100 05/18/19 10:25 05/18/19 10:25 05/18/19 10:25 05/18/19 10:25 05/18/19 10:25 Course - Vital Signs Vital signs: Temp Pulse Resp BP Pulse Ox 98.1 F 99 18 149/87 H 100 05/18/19 10:25 05/18/19 10:25 05/18/19 10:25 05/18/19 10:05/18/19 10:25 Doctor's Discharge - Discharge Referrals: JACOBO RYDER PA [Primary Care Provider] - Follow up as needed
[2019-05-18 11:17] LABS: APPEARANCE,URINE SLIGHTLY-CLOUDY; BILIRUBIN,URINE NEGATIVE (NEGATIVE); COLOR,URINE YELLOW; GLUCOSE, URINE NEGATIVE (NEGATIVE); KETONES,URINE NEGATIVE (NEGATIVE); PROTEIN,URINE NEGATIVE (NEGATIVE); URINE SPECIFIC GRAVITY 1.017
[2019-05-18 11:21] LABS: ABSOLUTE EOSINOPHILS # (AUTO) 0.2 10^3/uL (0.0-0.6); ABSOLUTE LYMPHOCYTES (AUTO) 1.9 10^3/uL (0.5-4.7); ABSOLUTE MONOCYTES (AUTO) 0.5 10^3/uL (0.1-1.4); ABSOLUTE NEUT (AUTO) 6.9 10^3/uL (1.7-8.2); BASOPHILS % (AUTO) 0.3 % (0-2); EOSINOPHILS % (AUTO) 2.4 % (0-6); HEMATOCRIT 37.3 % (36.0-47.0); HEMOGLOBIN 12.2 g/dL (12.0-15.5); LYMPHOCYTES % (AUTO) 19.9 % (13-45); MEAN CORPUSCULAR HEMOGLOBIN 28.2 pg (27.0-33.4); MEAN CORPUSCULAR HGB CONC 32.9 g/dL (32.0-36.0); MEAN CORPUSCULAR VOLUME 86 fl (80-97); MONOCYTES % (AUTO) 5.2 % (3-13); PLATELET COUNT 300 10^3/uL (150-450); RED BLOOD COUNT 4.35 10^6/uL (3.72-5.28); RED CELL DISTRIBUTION WIDTH 13.7 % (11.5-14.0); SEGMENTED NEUTROPHILS % (AUTO) 72.2 % (42-78); TOTAL CELLS COUNTED % (AUTO) 100 %; WHITE BLOOD COUNT 9.6 10^3/uL (4.0-10.5)
[2019-05-18 11:43] LABS: ALBUMIN 3.8 g/dL (3.5-5.0); ALKALINE PHOSPHATASE 57 U/L (38-126); ANION GAP 7 (5-19); ASPARTATE AMINO TRANSFERASE 21 U/L (14-36); BILIRUBIN,DIRECT 0.2 mg/dL (0.0-0.4); BILIRUBIN,TOTAL 0.4 mg/dL (0.2-1.3); BLOOD UREA NITROGEN 9 mg/dL (7-20); CALCIUM 9.6 mg/dL (8.4-10.2); CARBON DIOXIDE 24 mmol/L (22-30); CHLORIDE 112 mmol/L (98-107); GLUCOSE 88 mg/dL (75-110); POTASSIUM 4.2 mmol/L (3.6-5.0); TOTAL PROTEIN 7.5 g/dL (6.3-8.2)
--- NOTE | 2019-05-18 12:02 | RADIOLOGY REPORT (SQ) ---
EXAM DESCRIPTION: U/S OB TRANSVAGINAL W/O DOP COMPLETED DATE/TIME: 05/18/2019 11:39 am REASON FOR STUDY: vaginal spotting pelvic pain COMPARISON: None. TECHNIQUE: Transvaginal static and realtime grayscale images acquired of the pelvis. Additional kike cted spectral and color Doppler images recorded. All images stored on PACs. CLINICAL AGE: Unknown. BHCG: Not available. LIMITATIONS: None. FINDINGS: UTERUS: No visualized intrauterine . RIGHT ADNEXA: Normal ovary with normal vascular flow. No adnexal free fluid. No adnexal masses. LEFT ADNEXA: Normal ovary with normal vascular flow. No adnexal free fluid. Dominant follicle or small cyst 1.6 cm. FREE FLUID: None. OTHER: No other significant finding. IMPRESSION: NO VISUALIZED INTRA- OR EXTRAUTERINE . bHCG LEVEL NOT AVAILABLE FOR CORRELATION WITH US FINDINGS. ECTOPIC CANNOT BE EXCLUDED. FOLLOW-UP ULTRASOUND AND SERIAL BHCG LEVELS STRONGLY RECOMMENDED TO ACCURATELY ASSESS STATU S. TECHNICAL DOCUMENTATION: JOB ID: [id number] [employer] All Rights Reserved Reading location - IP/workstation name: [email or web address]
[2019-05-18] MEDS ORDERED: ONDANSETRON 4 MG TAB.RAPDIS PO ONE (12:44)
[2019-05-18] MEDS ORDERED: CEPHALEXIN 500 MG CAPSULE PO ONE (12:44)
--- NOTE | 2019-05-18 12:44 | ER Document Report ---
ED GI/ - General Chief Complaint: Abdominal Pain Stated Complaint: ABDOMINAL PAIN,NAUSEA Time Seen by Provider: 05/18/19 10:38 Primary Care Provider: JACOBO RYDER PA [Primary Care Provider] - Follow up as needed Mode of Arrival: Ambulatory Information source: Patient Notes: Ms. Trevizo is a G4, presenting to the ED for abdominal pain that began approximately 2 weeks ago. Patient endorses daily ongoing nausea with intermittent episodes of vomiting. She ate an egg and cheese sandwich this morning and later vomited that back up. She denies any hematemesis, or diarrhea. No fevers or chills, dysuria or increased urinary frequency. She also had that she had some vaginal spotting 2 days ago which has since stopped. Patient denies any chest pain, cough or shortness of breath. She believes that her last menstrual period was the end of March beginning of April however she is unsure that this was a full menstrual cycle. Patient states her 2 pre vious pregnancies were spontaneous vaginal deliveries without any complications. She denies any smoking or drug use. She had an OB appointment scheduled for Tuesday at 9:30 AM to discuss possible control options and obtain a Pap smear. TRAVEL OUTSIDE OF THE [place] IN LAST 30 DAYS: No - HPI Patient complains to provider of: Abdominal pain, , Vaginal bleeding, Vomiting. No: Vaginal discharge Vaginal bleeding (Compared to normal period): Spotting - Related Data Allergies/Adverse Reactions: Sulfa (Sulfonamide Antibiotics) Allergy (Mild, Verified 04/18/18 11:43) unknown Past Medical History - General Information source: Patient - Social History Smoking Status: Current Every Day Smoker Chew tobacco use (# tins/day): No Drug Abuse: None Family History: DM, Hypertension, Malignancy - Mother with cervical cancer, Thyroid Disfunction Patient has suicidal ideation: No Patient has homicidal ideation: No - Past Medical History Cardiac Medical History: Reports: Hx Heart Murmur Neurological Medical History: Reports: Hx Seizures - as child Renal/ Medical History: Denies: Hx Peritoneal Dialysis Musculoskeletal Medical History: Reports Hx Musculoskeletal Trauma Skin Medical History: Reports Hx Cellulitis, Reports Hx MRSA - bilateral axillae Infectious Medical History: Reports: Hx MRSA - Immunizations Immunizations up to date: Yes Hx Diphtheria, Pertussis, Tetanus Vaccination: Yes - january 2015 Review of Systems - Review of Systems Constitutional: See HPI EENT: No symptoms reported Cardiovascular: No symptoms reported Respiratory: No symptoms reported Gastrointestinal: See HPI, Abdominal pain, Nausea, Vomiting. denies: Abdomen distended, Diarrhea, Constipation, Black stools Genitourinary: denies: Dysuria, Discharge, Frequency, Flank pain, Hematuria, Incontinence, Urgency Female Genitourinary: , Vaginal bleeding. denies: Vaginal discharge, Vaginal odor Musculoskeletal: No symptoms reported Skin: No symptoms reported Hematologic/Lymphatic: No symptoms reported Neurological/Psychological: No symptoms reported Physical Exam - Vital signs Vitals: Temp Pulse Resp BP Pulse Ox 98.1 F 99 18 149/87 H 100 05/18/19 10:25 05/18/19 10:25 05/18/19 10:25 05/18/19 10:25 05/18/19 10:25 Interpretation: Normal - General General appearance: Appears well, Alert - HEENT Head: Normocephalic, Atraumatic Eyes: Normal Pupils: PERRL - Respiratory Respiratory status: No respiratory distress Chest status: Nontender Breath sounds: Normal Chest palpation: Normal - Cardiovascular Rhythm: Regular Heart sounds: Normal auscultation Murmur: No - Abdominal Inspection: Normal Distension: No distension Bowel sounds: Normal Tenderness: Nontender Organomegaly: No organomegaly - Genitourinary Notes: Deferred - Back Back: Normal, Nontender - Extremities General upper extremity: Normal inspection, Nontender, Normal color, Normal ROM, Normal temperature General lower extremity: Normal inspection, Nontender, Normal color, Normal ROM, Normal temperature, Normal weight bearing. No: Ceasar's sign - Neurological Neuro grossly intact: Yes Cognition: Normal Orientation: AAOx4 Shi Coma Scale Eye Opening: Spontaneous Shi Coma Scale Verbal: Oriented Shi Coma Scale Motor: Obeys Commands [place] Coma Scale Total: 15 Speech: Normal Motor strength normal: LUE, RUE, LLE, RLE Sensory: Normal - Psychological Associated symptoms: Normal affect, Normal mood - Skin Skin Temperature: Warm Skin Moisture: Dry Skin Color: Normal Course - Re-evaluation Re-evalutation: 05/18/19 13:02 Patient is currently and presenting with lower abdominal pain. Vaginal bleeding 2 days ago but has since stopped. No discharge. However given that the patient is Rh-, patient ordered for RhoGam. She is also ordered for Zofran for nausea. Ultrasound does not show a of any known location, intrauterine or extrauterine. Patient denies any dysuria and urinalysis is not consistent with an acute urinary tract infection. However, urine does show mild leukocytes as well as WBCs but does appear to be contaminated with epithelial cells. Will treat as asymptomatic bacteriuria in with 3 days of 3 times daily Keflex. The patient does not have any focal right lower quadrant tenderness, rebound or guarding to suggest acute appendicitis. No right upper quadrant tenderness to suggest cholestasis of or an acute cholecystitis. Patient has tolerated oral intake here in the emergency department without difficulty. Vitals are within normal limits. At this time will discharge with return precautions and follow-up recommendations. Verbal discharge instructions given a the bedside and opportunity for questions given. Medication warnings reviewed. Patient is in agreement with this plan and has verbalized understanding of return precautions and the need for primary care follow-up in the next 24-72 hours. And already has scheduled appointment with OB on Tuesday morning. She understands that she will need to call this afternoon and indicate to the medical provider that she needs a repeat beta quant as well as a repeat UA. Patient will be discharged with Keflex for a symptomatic bacteriuria in as well as likely just for ongoing nausea and vomiting. Patient will also be prescribed as needed Zofran to use as needed. 05/18/19 13:19 She given first dose of Keflex here in the ED, administered RhoGam IM as well as Zofran ODT. Feels improved and tolerating p.o. - Vital Signs Vital signs: Temp Pulse Resp BP Pulse Ox 98.1 F 99 18 149/87 H 100 05/18/19 10:25 05/18/19 10:25 05/18/19 10:25 05/18/19 10:25 05/18/19 10:25 - Laboratory Result Diagrams: 05/18/19 10:59 05/18/19 10:59 Laboratory results interpreted by me: 05/18/19 05/18/19 10:59 10:59 Chloride 112 H Beta HCG, Quant 47.92 H Urine Urobilinogen 2.0 H Leukocyte Esterase Rfl SMALL H Discharge - Discharge Clinical Impression: Asymptomatic bacteriuria during , Spontaneous vaginal delivery, of unknown anatomic location, Early stage of , Nausea and vomiting in Clinical Impression: (Ruled Out): Asymptomatic bacteriuria antepartum Condition: Good Disposition: HOME, SELF-CARE Instructions: Bleeding During Early ([facility]), Ectopic Precaution ([facility]), Pelvic Pain in ([facility]), ([facility]) Additional Instructions: You need to return to the ED or the OBGYN office in 48 hours for a recheck of your hormone level. The ultrasound is unable to see anything at this time because you are too early in your . We cannot definitively exclude an ectopic at this time. Please return if you develop severe abdominal pain, bleeding that goes through more than 2 pads for more than 2 hours, pass out, or have any other symptoms that are concerning to you. Please follow-up closely with your OBGYN regarding todays visit. Prescriptions: Doxylamine Succinate/Vit B6 [Lex Martinez 10-10 mg Tablet] 1 each PO QHS 30 Days #30 tablet. Cephalexin Monohydrate [Keflex 500 mg Capsule] 500 mg PO TID 3 Days capsule Ondansetron [Zofran Odt 4 mg Tablet] 4 mg PO TID PRN #30 tab.rapdis PRN Reason: For Nausea/Vomiting Referrals: JACOBO RYDER PA [Primary Care Provider] - Follow up as needed
[2019-05-18 13:28] VITALS: BP 136/79
== END 2019-05-18 13:31 | disposition home or self-care (01) ==
LOC: ER 10:08
DX: O21.9 Vomiting of pregnancy, unspecified (principal); O26.859 Spotting complicating pregnancy, unspecified trimester; O36.0990 Maternal care for other rhesus isoimmunization, unspecified trimester, not applicable or unspecified; O26.899 Other specified pregnancy related conditions, unspecified trimester; R10.30 Lower abdominal pain, unspecified; O99.330 Smoking (tobacco) complicating pregnancy, unspecified trimester; F17.200 Nicotine dependence, unspecified, uncomplicated; Z3A.00 Weeks of gestation of pregnancy not specified; Z88.2 Allergy status to sulfonamides
CPT/HCPCS: 99284; 86900; 86901; 36415; 87086; 86850; 84702; 85025; 87088; 80053; 81001; 87186; 76817; J2790; S0119

== ENCOUNTER 2019-06-02 22:41 | Emergency (ER) | payer MEDICAID ==
[2019-06-02 22:50] VITALS: BP 146/88
[2019-06-02 23:28] LABS: ABSOLUTE EOSINOPHILS # (AUTO) 0.3 10^3/uL (0.0-0.6); ABSOLUTE LYMPHOCYTES (AUTO) 2.8 10^3/uL (0.5-4.7); ABSOLUTE MONOCYTES (AUTO) 0.5 10^3/uL (0.1-1.4); ABSOLUTE NEUT (AUTO) 4.3 10^3/uL (1.7-8.2); BASOPHILS % (AUTO) 0.5 % (0-2); EOSINOPHILS % (AUTO) 3.4 % (0-6); HEMATOCRIT 38.2 % (36.0-47.0); HEMOGLOBIN 12.6 g/dL (12.0-15.5); LYMPHOCYTES % (AUTO) 35.1 % (13-45); MEAN CORPUSCULAR HEMOGLOBIN 28.1 pg (27.0-33.4); MEAN CORPUSCULAR HGB CONC 33.1 g/dL (32.0-36.0); MEAN CORPUSCULAR VOLUME 85 fl (80-97); MONOCYTES % (AUTO) 6.3 % (3-13); PLATELET COUNT 285 10^3/uL (150-450); SEGMENTED NEUTROPHILS % (AUTO) 54.7 % (42-78); TOTAL CELLS COUNTED % (AUTO) 100 %; WHITE BLOOD COUNT 7.8 10^3/uL (4.0-10.5)
[2019-06-02 23:31] LABS: APPEARANCE,URINE CLEAR; BILIRUBIN,URINE NEGATIVE (NEGATIVE); COLOR,URINE YELLOW; GLUCOSE, URINE NEGATIVE (NEGATIVE); KETONES,URINE NEGATIVE (NEGATIVE); LEUKOCYTE ESTERASE,URINE NEGATIVE (NEGATIVE); NITRITE,URINE NEGATIVE (NEGATIVE); PROTEIN,URINE NEGATIVE (NEGATIVE); URINE SPECIFIC GRAVITY 1.032
[2019-06-03 00:37] LABS: ALBUMIN 4.2 g/dL (3.5-5.0); ALKALINE PHOSPHATASE 60 U/L (38-126); ANION GAP 9 (5-19); ASPARTATE AMINO TRANSFERASE 19 U/L (14-36); BILIRUBIN,DIRECT 0.1 mg/dL (0.0-0.4); BILIRUBIN,TOTAL 0.3 mg/dL (0.2-1.3); BLOOD UREA NITROGEN 14 mg/dL (7-20); CALCIUM 9.6 mg/dL (8.4-10.2); CARBON DIOXIDE 23 mmol/L (22-30); CHLORIDE 110 mmol/L (98-107); GLUCOSE 115 mg/dL (75-110); POTASSIUM 4.2 mmol/L (3.6-5.0); TOTAL PROTEIN 7.8 g/dL (6.3-8.2)
--- NOTE | 2019-06-03 01:06 | ER Document Report ---
ED General - General Chief Complaint: Lower Abdominal Pain Stated Complaint: VAGINAL BLEEDING Time Seen by Provider: 06/02/19 23:43 Primary Care Provider: JACOBO RYDER PA [Primary Care Provider] - Follow up as needed TRAVEL OUTSIDE OF THE [place] IN LAST 30 DAYS: No - HPI Notes: Patient is a G4, P2 female who presents to the emergency department for evaluation of vaginal bleeding. She states her last menstrual. Was sometime in March, she is unable to tell me anything about when beyond that. She states that she was seen and had levels drawn and they were "low" for her dates. She states she started having vaginal bleeding today. She does follow with OB. Her bleeding is controlled with pads only, she is on needed for pads in the last 24 hours. She states she does know her blood type, it is a negative. She states she received RhoGam at her last visit. - Related Data Allergies/Adverse Reactions: Sulfa (Sulfonamide Antibiotics) Allergy (Mild, Verified 04/18/18 11:43) unknown Past Medical History - Social History Smoking Status: Current Every Day Smoker Chew tobacco use (# tins/day): No Frequency of alcohol use: None Drug Abuse: None Family History: DM, Hypertension, Malignancy - Mother with cervical cancer, Thyroid Disfunction Patient has suicidal ideation: No Patient has homicidal ideation: No - Past Medical History Cardiac Medical History: Reports: Hx Heart Murmur Neurological Medical History: Reports: Hx Seizures - as child Renal/ Medical History: Denies: Hx Peritoneal Dialysis Musculoskeletal Medical History: Reports Hx Musculoskeletal Trauma Skin Medical History: Reports Hx Cellulitis, Reports Hx MRSA - bilateral axillae Infectious Medical History: Reports: Hx MRSA - Immunizations Immunizations up to date: Yes Hx Diphtheria, Pertussis, Tetanus Vaccination: Yes - january 2015 Review of Systems - Review of Systems Constitutional: No symptoms reported EENT: No symptoms reported Cardiovascular: No symptoms reported Respiratory: No symptoms reported Gastrointestinal: No symptoms reported Genitourinary: No symptoms reported Female Genitourinary: See HPI Musculoskeletal: No symptoms reported Skin: No symptoms reported Neurological/Psychological: No symptoms reported Physical Exam - Vital signs Vitals: Temp Pulse Resp BP Pulse Ox 97.8 F 100 18 146/88 H 98 06/02/19 22:45 06/02/19 22:45 06/02/19 22:45 06/02/19 22:45 06/02/19 22:45 - Notes Notes: Vital signs reviewed, please refer to chart. Head is normocephalic, atraumatic. Pupils equal round, reactive to light. Neck is supple without meningismus. Heart is regular rate and rhythm. Lungs are clear to auscultation bilaterally. Abdomen is soft, nontender, normoactive bowel sounds throughout. Extremities without cyanosis, clubbing. Posterior calves are nontender. Peripheral pulses are equal. Skin is warm and dry. Patient is awake, alert, neurological exam is nonfocal. Course - Re-evaluation Re-evalutation: 06/03/19 01:12 Patient presents emergency department for evaluation. Her last menstrual period was back in March, her last beta was in the single digits. Today it was undetectable. My suspicion is that this spontaneous AB has been completed. At this point she is not having significantly heavy bleeding. She feels comfortable with close OB follow-up. I will send her home, she is to follow complete pelvic rest. She is to return to the ED with worsening or new concerning symptoms of any sort. - Vital Signs Vital signs: Temp Pulse Resp BP Pulse Ox 97.8 F 100 18 146/88 H 98 06/02/19 22:45 06/02/19 22:45 06/02/19 22:45 06/02/19 22:45 06/02/19 22:45 - Laboratory Result Diagrams: 06/02/19 23:05 06/02/19 23:05 Laboratory results interpreted by me: 06/02/19 06/02/19 23:05 23:05 Chloride 110 H Glucose 115 H Urine Blood LARGE H Urine Urobilinogen 4.0 H Discharge - Discharge Clinical Impression: Spontaneous miscarriage Condition: Stable Disposition: HOME, SELF-CARE Instructions: Miscarriage ([facility]) Additional Instructions: Pelvic rest. Continue to use pads as needed for bleeding. If you start going through more than 1 pad an hour, have increased pain, or any other new or concerning symptoms, please return immediately to the emergency department for evaluation. Otherwise, follow-up with OB next week. Referrals: JACOBO RYDER PA [Primary Care Provider] - Follow up as needed
== END 2019-06-03 01:19 | disposition home or self-care (01) ==
LOC: ER 22:41
DX: O03.9 Complete or unspecified spontaneous abortion without complication (principal); R10.30 Lower abdominal pain, unspecified; F17.200 Nicotine dependence, unspecified, uncomplicated; Z88.2 Allergy status to sulfonamides; Z86.14 Personal history of Methicillin resistant Staphylococcus aureus infection
CPT/HCPCS: 36415; 80053; 81001; 83690; 84702; 85025

== ENCOUNTER 2019-06-18 12:53 | Emergency (ER) | payer MEDICAID ==
[2019-06-18 13:00] VITALS: BP 138/84
[2019-06-18] MEDS ORDERED: LIDOCAINE 1% INJ-PF (10 MG/ML) 30 ML SDV INJ ONE (13:10)
[2019-06-18] MEDS ORDERED: DIPH/PERTUSS(ACELL)/TETANUS VAC/PF 0.5 ML SYR (>=10YO) IM ONE (13:11)
--- NOTE | 2019-06-18 13:12 | ER Document Report ---
HPI - HPI Patient complains to provider of: Finger laceration Time Seen by Provider: 06/18/19 13:06 Onset: Just prior to arrival Onset/Duration: Sudden Quality of pain: No pain Pain Level: 0 Context: Patient was attempting to cut open and air freshener and slipped cutting her left second finger. Patient is right-hand dominant. Patient denies any difficulty in moving her finger. Patient denies any pain at this time. Associated Symptoms: Other - Left second finger laceration Exacerbated by: Movement Relieved by: Denies Similar symptoms previously: No Recently seen / treated by doctor: No - ROS ROS below otherwise negative: Yes Systems Reviewed and Negative: Yes All other systems reviewed and negative - NEURO Neurology: DENIES: Weakness - REPRODUCTIVE Reproductive: DENIES: : - MUSCULOSKELETAL Musculoskeletal: REPORTS: Extremity pain - DERM Skin Color: Normal Skin Problems: Laceration Past Medical History - General Information source: Patient - Social History Smoking Status: Current Every Day Smoker Chew tobacco use (# tins/day): No Frequency of alcohol use: Occasional Drug Abuse: None Occupation: [employer] Lives with: Family Family History: DM, Hypertension, Malignancy - Mother with cervical cancer, Thyroid Disfunction Patient has suicidal ideation: No Patient has homicidal ideation: No - Past Medical History Cardiac Medical History: Reports: Hx Heart Murmur Neurological Medical History: Reports: Hx Seizures - as child Renal/ Medical History: Denies: Hx Peritoneal Dialysis Musculoskeletal Medical History: Reports Hx Musculoskeletal Trauma Skin Medical History: Reports Hx Cellulitis, Reports Hx MRSA - bilateral axillae Infectious Medical History: Reports: Hx MRSA Surgical Hx: Negative - Immunizations Immunizations up to date: Yes Hx Diphtheria, Pertussis, Tetanus Vaccination: Yes - january 2015 [facility] Provider Document - CONSTITUTIONAL Agree With Documented VS: Yes Exam Limitations: No Limitations General Appearance: WD/WN, No Apparent Distress - INFECTION CONTROL TRAVEL OUTSIDE OF THE [place] IN LAST 30 DAYS: No - HEENT HEENT: Atraumatic, Normocephalic - NECK Neck: Normal Inspection - RESPIRATORY Respiratory: No Respiratory Distress - CARDIOVASCULAR Pulses: Normal: Radial - MUSCULOSKELETAL/EXTREMETIES Musculoskeletal/Extremeties: MAEW, FROM, Non-Tender - NEURO Level of Consciousness: Awake, Alert, Appropriate Motor/Sensory: No Motor Deficit, No Sensory Deficit - DERM Integumentary: Warm, Laceration - 2 cm laceration to dorsal aspect of left second finger, no tendon deficit. Patient able to flex and extend the finger against resistance Course - Vital Signs Vital signs: Temp Pulse Resp BP Pulse Ox 98.2 F 84 20 138/84 H 100 06/18/19 12:58 06/18/19 12:58 06/18/19 12:58 06/18/19 12:58 06/18/19 12:58 Procedures - Laceration/Wound Repair Left Hand Wound length (cm): 2 Wound's Depth, Shape: Linear Anesthetic type: 1% Lidocaine Wound explored: Clean Wound Repaired With: Sutures Suture Size/Type: 5:0, Nylon Number of Sutures: 4 Layer Closure?: No Post-procedure wound care: Sterile dressing applied Post-procedure NV exam normal: Yes Complications: No Hands back picture: 1 - lac Discharge - Discharge Clinical Impression: Finger laceration Qualifiers: Encounter type: initial encounter Finger: index finger Damage to nail status: without damage Foreign body presence: without foreign body Laterality: left Qualified Code(s): S61.211A - Laceration without foreign body of left index finger without damage to nail, initial encounter Condition: Stable Disposition: HOME, SELF-CARE Instructions: Laceration Care ([facility]), Tetanus Immunization Given ([facility]) Additional Instructions: Return immediately for any new or worsening symptoms Followup with your primary care provider, call tomorrow to make a followup appointment Suture removal in 10 days Forms: Special Work Note Referrals: JACOBO RYDER PA [Primary Care Provider] - Follow up as needed
== END 2019-06-18 14:17 | disposition home or self-care (01) ==
LOC: ER 12:53
PROC: 0HQGXZZ Repair Left Hand Skin, External Approach (ICD-10-PCS; principal; 2019-06-18)
DX: S61.211A Laceration without foreign body of left index finger without damage to nail, initial encounter (principal); W45.8XXA Other foreign body or object entering through skin, initial encounter; F17.200 Nicotine dependence, unspecified, uncomplicated
CPT/HCPCS: 99282; 90471; 90715; 12001; J3490

== ENCOUNTER 2019-08-29 14:13 | Emergency (ER) | payer MEDICAID ==
--- NOTE | 2019-08-29 16:02 | ER Document Report ---
ED Medical Screen (RME) - General Chief Complaint: Abdominal Pain Stated Complaint: ABDOMINAL PAIN Time Seen by Provider: 08/29/19 15:56 Primary Care Provider: JACOBO RYDER PA [Primary Care Provider] - Follow up as needed Mode of Arrival: Ambulatory Information source: Patient Notes: 29-year-old female presents emergency department with complaints of lower abdominal pain that started Tuesday. Patient reports she is validated by home test.. Reports she had a miscarriage in May and the abdominal pain feels the same way. Denies fever nausea vomiting diarrhea. Denies pain with void. Denies vaginal discharge denies vaginal bleeding. Last menstrual period July. I have greeted and performed a rapid initial assessment of this patient. A comprehensive ED assessment and evaluation of the patient, analysis of test results and completion of the medical decision making process will be conducted by additional ED providers. TRAVEL OUTSIDE OF THE [place] IN LAST 30 DAYS: No - Related Data Allergies/Adverse Reactions: Sulfa (Sulfonamide Antibiotics) Allergy (Mild, Verified 08/29/19 15:48) unknown Past Medical History - Social History Chew tobacco use (# tins/day): No Frequency of alcohol use: None Drug Abuse: None Family history: None - Past Medical History Cardiac Medical History: Reports: Hx Heart Murmur Neurological Medical History: Reports: Hx Seizures - as child Renal/ Medical History: Denies: Hx Peritoneal Dialysis Musculoskeltal Medical History: Reports Hx Musculoskeletal Trauma Skin Medical History: Reports Hx Cellulitis, Reports Hx MRSA - bilateral axillae Infectious Medical History: Reports: Hx MRSA - Immunizations Immunizations up to date: Yes Hx Diphtheria, Pertussis, Tetanus Vaccination: Yes - january 2015 Physical Exam - Vital signs Vitals: Temp Pulse Resp BP Pulse Ox 98.6 F 104 H 18 145/73 H 99 08/29/19 14:48 08/29/19 14:48 08/29/19 14:48 08/29/19 14:48 08/29/19 14:48 Course - Vital Signs Vital signs: Temp Pulse Resp BP Pulse Ox 98.6 F 104 H 18 145/73 H 99 08/29/19 14:48 08/29/19 14:48 08/29/19 14:48 08/29/19 14:48 08/29/19 14:48 Doctor's Discharge - Discharge Referrals: JACOBO RYDER PA [Primary Care Provider] - Follow up as needed
[2019-08-29 17:03] LABS: ABSOLUTE EOSINOPHILS # (AUTO) 0.3 10^3/uL (0.0-0.6); ABSOLUTE LYMPHOCYTES (AUTO) 2.4 10^3/uL (0.5-4.7); ABSOLUTE MONOCYTES (AUTO) 0.5 10^3/uL (0.1-1.4); ABSOLUTE NEUT (AUTO) 6.2 10^3/uL (1.7-8.2); BASOPHILS % (AUTO) 0.3 % (0-2); EOSINOPHILS % (AUTO) 3.2 % (0-6); HEMATOCRIT 39.4 % (36.0-47.0); HEMOGLOBIN 13.2 g/dL (12.0-15.5); LYMPHOCYTES % (AUTO) 25.1 % (13-45); MEAN CORPUSCULAR HEMOGLOBIN 28.5 pg (27.0-33.4); MEAN CORPUSCULAR HGB CONC 33.4 g/dL (32.0-36.0); MEAN CORPUSCULAR VOLUME 85 fl (80-97); MONOCYTES % (AUTO) 5.8 % (3-13); PLATELET COUNT 277 10^3/uL (150-450); RED BLOOD COUNT 4.62 10^6/uL (3.72-5.28); RED CELL DISTRIBUTION WIDTH 14.7 % (11.5-14.0); SEGMENTED NEUTROPHILS % (AUTO) 65.6 % (42-78); TOTAL CELLS COUNTED % (AUTO) 100 %; WHITE BLOOD COUNT 9.4 10^3/uL (4.0-10.5)
[2019-08-29 17:06] LABS: APPEARANCE,URINE SLIGHTLY-CLOUDY; BILIRUBIN,URINE NEGATIVE (NEGATIVE); COLOR,URINE YELLOW; GLUCOSE, URINE NEGATIVE (NEGATIVE); KETONES,URINE NEGATIVE (NEGATIVE); LEUKOCYTE ESTERASE,URINE TRACE (NEGATIVE); NITRITE,URINE NEGATIVE (NEGATIVE); PROTEIN,URINE NEGATIVE (NEGATIVE); URINE SPECIFIC GRAVITY 1.024
[2019-08-29 17:17] LABS: ALBUMIN 4.4 g/dL (3.5-5.0); ALKALINE PHOSPHATASE 56 U/L (38-126); ANION GAP 8 (5-19); ASPARTATE AMINO TRANSFERASE 25 U/L (14-36); BILIRUBIN,TOTAL 0.2 mg/dL (0.2-1.3); BLOOD UREA NITROGEN 12 mg/dL (7-20); CARBON DIOXIDE 25 mmol/L (22-30); CHLORIDE 105 mmol/L (98-107); GLUCOSE 82 mg/dL (75-110); POTASSIUM 4.6 mmol/L (3.6-5.0); TOTAL PROTEIN 7.7 g/dL (6.3-8.2)
--- NOTE | 2019-08-29 17:30 | ER Document Report ---
ED General - General Chief Complaint: Abdominal Pain Stated Complaint: ABDOMINAL PAIN Time Seen by Provider: 08/29/19 15:56 Primary Care Provider: JACOBO RYDER PA [PHYSICIAN DRIVER TRAINEE] - Follow up in 1 week DAVID KHAN MD [ACTIVE STAFF] - 08/31/19 Mode of Arrival: Ambulatory TRAVEL OUTSIDE OF THE [place] IN LAST 30 DAYS: No - HPI Notes: 29-year-old female to the emergency department with complaints of pelvic pain that began approximately 3 days ago. She states that she is and has had a positive home test. She states that she has not had an ultrasound yet with this . This is her fourth and she has 2 living children. She was in May and had a miscarriage. She denies any vaginal bleeding. She denies any urinary complaints. She denies any vaginal discharge. She denies any chest pain or shortness of breath. She states that she has been under a bit of stress recently because 1 of her children was admitted to the hospital. She denies any concern for STD. - Related Data Allergies/Adverse Reactions: Sulfa (Sulfonamide Antibiotics) Allergy (Mild, Verified 08/29/19 15:48) unknown Past Medical History - General Information source: Patient - Social History Smoking Status: Current Every Day Smoker Chew tobacco use (# tins/day): No Frequency of alcohol use: None Drug Abuse: None Family History: DM, Hypertension, Malignancy - Mother with cervical cancer, Thyroid Disfunction Patient has suicidal ideation: No Patient has homicidal ideation: No - Past Medical History Cardiac Medical History: Reports: Hx Heart Murmur Neurological Medical History: Reports: Hx Seizures - as child Renal/ Medical History: Denies: Hx Peritoneal Dialysis Musculoskeletal Medical History: Reports Hx Musculoskeletal Trauma Skin Medical History: Reports Hx Cellulitis, Reports Hx MRSA - bilateral axillae Infectious Medical History: Reports: Hx MRSA - Immunizations Immunizations up to date: Yes Hx Diphtheria, Pertussis, Tetanus Vaccination: Yes - january 2015 Review of Systems - Review of Systems Constitutional: denies: Chills, Fever EENT: No symptoms reported Cardiovascular: denies: Chest pain, Palpitations, Heart racing, Dizziness, Lightheaded Respiratory: denies: Cough, Short of breath Gastrointestinal: See HPI, Abdominal pain. denies: Diarrhea, Nausea, Vomiting Genitourinary: denies: Frequency, Flank pain Female Genitourinary: . denies: Heavy/abnormal periods, Vaginal bleeding Musculoskeletal: No symptoms reported Skin: No symptoms reported Hematologic/Lymphatic: No symptoms reported Neurological/Psychological: No symptoms reported -: Yes All other systems reviewed and negative Physical Exam - Vital signs Vitals: Temp Pulse Resp BP Pulse Ox 98.6 F 104 H 18 145/73 H 99 08/29/19 14:48 08/29/19 14:48 08/29/19 14:48 08/29/19 14:48 08/29/19 14:48 Interpretation: Normal - General General appearance: Appears well, Alert In distress: None - HEENT Head: Normocephalic, Atraumatic Eyes: Normal Pupils: PERRL - Respiratory Respiratory status: No respiratory distress Chest status: Nontender Breath sounds: Normal. No: Rales, Rhonchi, Wheezing Chest palpation: Normal - Cardiovascular Rhythm: Regular Heart sounds: Normal auscultation Murmur: No - Abdominal Inspection: Normal Distension: No distension Bowel sounds: Normal Tenderness: Nontender. No: Tender, McBurney's point, Mcdowell's sign, Guarding, Rebound Organomegaly: No organomegaly - Back Back: Normal, Nontender - Neurological Neuro grossly intact: Yes Cognition: Normal Orientation: AAOx4 Shi Coma Scale Eye Opening: Spontaneous Shi Coma Scale Verbal: Oriented Shi Coma Scale Motor: Obeys Commands [place] Coma Scale Total: 15 Speech: Normal Cranial nerves: Normal Cerebellar coordination: Normal. No: Gait ataxia Motor strength normal: LUE, RUE, LLE, RLE Additional motor exam normals: Equal knitter mechanic. No: Pronator drift Sensory: Normal - Psychological Associated symptoms: Normal affect, Normal mood - Skin Skin Temperature: Warm Skin Moisture: Dry Skin Color: Normal Course - Re-evaluation Re-evalutation: 08/29/19 Impression: Pelvic pain in early . Ultrasound shows a 6-week gestation but the heart rate is only 97. Patient has not had any vaginal bleeding and there is no subchorionic hemorrhage. hormone of 14, 694. No UTI. Other labs are reassuring. Plan to start on Prenatals and Diclegis. Have her see her OB on Tuesday for trending of hormone and repeat US. Encouraged smoking cessation. - Vital Signs Vital signs: Temp Pulse Resp BP Pulse Ox 98.6 F 104 H 18 145/73 H 99 08/29/19 14:48 08/29/19 14:48 08/29/19 14:48 08/29/19 14:48 08/29/19 14:48 - Laboratory Result Diagrams: 08/29/19 16:40 08/29/19 16:40 Laboratory results interpreted by me: 08/29/19 08/29/19 08/29/19 16:40 16:40 16:40 RDW 14.7 H Beta HCG, Quant 64895.00 H Urine Urobilinogen 2.0 H Ur Leukocyte Esterase TRACE H - Diagnostic Test Radiology reviewed: Image reviewed, Reports reviewed Discharge - Discharge Clinical Impression: 6 weeks gestation of Pelvic pain affecting Qualifiers: Trimester: first trimester Qualified Code(s): O26.891 - Other specified related conditions, first trimester Condition: Stable Disposition: HOME, SELF-CARE Instructions: Pelvic Pain in ([facility]), ([facility]) Additional Instructions: Follow-up with your [employer], Dr. Khan, by Tuesday for hormone trending and further management. Start to take prenatals and take Diclegis for any nausea. You may take Tylenol only for any pelvic pain. Return if any wors ening symptoms. You had a 6-week in your uterus today on ultrasound. However the heart rate was a little low it was 97 bpm. This needs to be monitored. Prescriptions: Doxylamine Succinate/Vit B6 [Diclegis Dr 10-10 mg Tablet] 1 each PO BID #20 tablet. Pnv No.121/Iron/Folic Acid [ Multivitamin Tablet] 1 each PO DAILY #30 tablet Referrals: JACOBO RYDER PA [PHYSICIAN DRIVER TRAINEE] - Follow up in 1 week DAVID KHAN MD [ACTIVE STAFF] - 08/31/19
--- NOTE | 2019-08-29 17:38 | RADIOLOGY REPORT (SQ) ---
EXAM DESCRIPTION: U/S OB TRANSVAGINAL W/O DOP COMPLETED DATE/TIME: 08/29/2019 5:24 pm REASON FOR STUDY: abd pain, COMPARISON: None. TECHNIQUE: Transvaginal static and realtime grayscale images acquired of the pelvis. Additional kike cted spectral and color Doppler images recorded. All images stored on PACs. bHCG: Pending. CLINICAL DATES: Unknown. LIMITATIONS: None. FINDINGS: FETUS: Single Living intrauterine . ULTRASOUND EGA: 6 week 0 day. ULTRASOUND KEN: 04/23/2020. EFW: Not applicable less than 20 weeks. CRL: 0.36 cm. FHR: 97 beats per minute. SURVEY: No visualized anomalies. AMNIOTIC FLUID: Adequate amount. PLACENTA: Not yet developed due to early gestation. SUBCHORIONIC BLEED: No. SIZE OF BLEED: Not applicable. UTERUS: No masses. No anomalies. CERVICAL LENGTH: 3.6 cm. Closed. RIGHT ADNEXA: Normal ovary with normal vascular flow. No adnexal free fluid. 1.7 cm cyst. LEFT ADNEXA: Ovary not identified due to poor acoustical window. No adnexal free fluid. No adnexal masses. FREE FLUID: None. OTHER: No other significant finding. IMPRESSION: LIVING INTRAUTERINE . EGA 6 WEEK 0 DAY. THE HEART RATE IS 97 BEATS PER MINUTE WHICH IS SOMEWHAT LOW. Trimester of : First trimester - 0 to 13 weeks. TECHNICAL DOCUMENTATION: JOB ID: [id number] 2010 [employer]- All Rights Reserved rev Reading location - IP/workstation name: [email or web address]
[2019-08-29] MEDS ORDERED: ACETAMINOPHEN 325 MG TABLET PO ONE (17:55)
[2019-08-29 18:26] VITALS: BP 129/64
== END 2019-08-29 18:27 | disposition home or self-care (01) ==
LOC: ER 14:13
DX: O26.891 Other specified pregnancy related conditions, first trimester (principal); R10.2 Pelvic and perineal pain; O99.331 Smoking (tobacco) complicating pregnancy, first trimester; F17.200 Nicotine dependence, unspecified, uncomplicated; Z3A.01 Less than 8 weeks gestation of pregnancy; Z88.2 Allergy status to sulfonamides; Z86.14 Personal history of Methicillin resistant Staphylococcus aureus infection
CPT/HCPCS: 36415; 84702; 85025; 80053; 81001; 76817; J3490

== ENCOUNTER 2019-09-25 17:28 | Emergency (ER) | payer MEDICAID ==
--- NOTE | 2019-09-25 19:24 | ER Document Report ---
ED Medical Screen (RME) - General Chief Complaint: Abdominal Pain Stated Complaint: ABDOMINAL PAIN Time Seen by Provider: 09/25/19 19:21 Primary Care Provider: MOUNIKA BRYSON FNP-C [Primary Care Provider] - Follow up as needed Mode of Arrival: Ambulatory Information source: Patient Notes: 29-year-old female presents to ED for complaint of abdominal pain. She states she had an on Tuesday and the pain is getting much worse. She states she also did not get a RhoGam shot when she had her on Tuesday. Patient is alert and oriented respirations regular nonlabored at this time. Denies any nausea or vomiting at this time. She does have a lot of pressure when she urinates. I have greeted and performed a rapid initial assessment of this patient. A comprehensive ED assessment and evaluation of the patient, analysis of test results and completion of medical decision making process will be conducted by an additional ED providers. TRAVEL OUTSIDE OF THE [place] IN LAST 30 DAYS: No - Related Data Allergies/Adverse Reactions: Sulfa (Sulfonamide Antibiotics) Allergy (Mild, Verified 08/29/19 15:48) unknown Past Medical History - Social History Family history: None - Past Medical History Cardiac Medical History: Reports: Hx Heart Murmur Neurological Medical History: Reports: Hx Seizures - as child Renal/ Medical History: Denies: Hx Peritoneal Dialysis Musculoskeltal Medical History: Reports Hx Musculoskeletal Trauma Skin Medical History: Reports Hx Cellulitis, Reports Hx MRSA - bilateral axillae Infectious Medical History: Reports: Hx MRSA - Immunizations Immunizations up to date: Yes Hx Diphtheria, Pertussis, Tetanus Vaccination: Yes - january 2015 Physical Exam - Vital signs Vitals: Temp Pulse Resp BP Pulse Ox 98.9 F 111 H 16 144/76 H 98 09/25/19 17:52 09/25/19 17:52 09/25/19 17:52 09/25/19 17:52 09/25/19 17:52 Course - Vital Signs Vital signs: Temp Pulse Resp BP Pulse Ox 98.9 F 111 H 16 144/76 H 98 09/25/19 17:52 09/25/19 17:52 09/25/19 17:52 09/25/19 17:52 09/25/19 17:52 Doctor's Discharge - Discharge Referrals: GILBERT,STORMY, REGULATOR MECHANIC-C [Primary Care Provider] - Follow up as needed
[2019-09-25 20:07] LABS: ABSOLUTE EOSINOPHILS # (AUTO) 0.1 10^3/uL (0.0-0.6); ABSOLUTE LYMPHOCYTES (AUTO) 1.7 10^3/uL (0.5-4.7); ABSOLUTE MONOCYTES (AUTO) 0.6 10^3/uL (0.1-1.4); ABSOLUTE NEUT (AUTO) 3.9 10^3/uL (1.7-8.2); BASOPHILS % (AUTO) 0.3 % (0-2); EOSINOPHILS % (AUTO) 1.7 % (0-6); HEMATOCRIT 38.2 % (36.0-47.0); HEMOGLOBIN 12.6 g/dL (12.0-15.5); LYMPHOCYTES % (AUTO) 26.2 % (13-45); MEAN CORPUSCULAR HEMOGLOBIN 28.6 pg (27.0-33.4); MEAN CORPUSCULAR HGB CONC 33.1 g/dL (32.0-36.0); MEAN CORPUSCULAR VOLUME 86 fl (80-97); MONOCYTES % (AUTO) 9.3 % (3-13); PLATELET COUNT 226 10^3/uL (150-450); RED BLOOD COUNT 4.42 10^6/uL (3.72-5.28); RED CELL DISTRIBUTION WIDTH 14.9 % (11.5-14.0); SEGMENTED NEUTROPHILS % (AUTO) 62.5 % (42-78); TOTAL CELLS COUNTED % (AUTO) 100 %; WHITE BLOOD COUNT 6.3 10^3/uL (4.0-10.5)
[2019-09-25 20:11] LABS: APPEARANCE,URINE CLOUDY; BILIRUBIN,URINE NEGATIVE (NEGATIVE); COLOR,URINE AMBER; GLUCOSE, URINE NEGATIVE (NEGATIVE); KETONES,URINE TRACE mg/dL (NEGATIVE); PROTEIN,URINE 30 mg/dL (NEGATIVE); URINE SPECIFIC GRAVITY 1.034
[2019-09-25 20:20] LABS: CALCIUM OXALATE CRYSTALS,UR TOO NUMEROUS TO CNT /HPF
[2019-09-25 20:21] LABS: ALBUMIN 4.1 g/dL (3.5-5.0); ALKALINE PHOSPHATASE 53 U/L (38-126); ANION GAP 11 (5-19); ASPARTATE AMINO TRANSFERASE 25 U/L (14-36); BILIRUBIN,DIRECT 0.4 mg/dL (0.0-0.4); BILIRUBIN,TOTAL 0.4 mg/dL (0.2-1.3); BLOOD UREA NITROGEN 11 mg/dL (7-20); CALCIUM 9.9 mg/dL (8.4-10.2); CARBON DIOXIDE 23 mmol/L (22-30); CHLORIDE 108 mmol/L (98-107); GLUCOSE 83 mg/dL (75-110); POTASSIUM 4.2 mmol/L (3.6-5.0); TOTAL PROTEIN 7.5 g/dL (6.3-8.2)
[2019-09-25] MEDS ORDERED: NORMAL SALINE 1000 ML 1,000 ML IV ONE (20:22)
[2019-09-25] MEDS ORDERED: KETOROLAC TROMETHAMINE INJ/PF 30 MG/1 ML SDV IV ONE (20:24)
--- NOTE | 2019-09-25 20:25 | ER Document Report ---
ED GI/ - General Chief Complaint: Abdominal Pain Stated Complaint: ABDOMINAL PAIN Time Seen by Provider: 09/25/19 19:21 Primary Care Provider: MOUNIKA BRYSON FNP-C [Primary Care Provider] - Follow up as needed Mode of Arrival: Ambulatory Notes: 29-year-old woman presents to the emergency department history of a therapeutic on Tuesday. She presents to the emergency room today with complaint of lower abdominal pain/cramping and some bleeding. She denies fever, nausea vomiting or dizziness. Apparently she was found to be a negative blood type, the patient states that she was told to come to the hospital for RhoGam treatment. TRAVEL OUTSIDE OF THE [place] IN LAST 30 DAYS: No - Related Data Allergies/Adverse Reactions: Sulfa (Sulfonamide Antibiotics) Allergy (Mild, Verified 08/29/19 15:48) unknown Past Medical History - General Information source: Patient - Social History Smoking Status: Current Every Day Smoker Family History: DM, Hypertension, Malignancy - Mother with cervical cancer, Thyroid Disfunction Patient has suicidal ideation: No Patient has homicidal ideation: No - Past Medical History Cardiac Medical History: Reports: Hx Heart Murmur Neurological Medical History: Reports: Hx Seizures - as child Renal/ Medical History: Denies: Hx Peritoneal Dialysis Musculoskeletal Medical History: Reports Hx Musculoskeletal Trauma Skin Medical History: Reports Hx Cellulitis, Reports Hx MRSA - bilateral axillae Infectious Medical History: Reports: Hx MRSA - Immunizations Immunizations up to date: Yes Hx Diphtheria, Pertussis, Tetanus Vaccination: Yes - january 2015 Review of Systems - Review of Systems Notes: Constitutional: Negative for fever. HENT: Negative for sore throat. Eyes: Negative for visual changes. Cardiovascular: Negative for chest pain. Respiratory: Negative for shortness of breath. Gastrointestinal: Negative for abdominal pain, vomiting or diarrhea. Genitourinary: + Lower abdominal pain, + vaginal bleeding . Musculoskeletal: Negative for back pain. Skin: Negative for rash. Neurological: Negative for headaches, weakness or numbness. 10 point ROS negative except as marked above and in HPI. Physical Exam - Vital signs Vitals: Temp Pulse Resp BP Pulse Ox 98.9 F 111 H 16 144/76 H 98 09/25/19 17:52 09/25/19 17:52 09/25/19 17:52 09/25/19 17:52 09/25/19 17:52 - Notes Notes: PHYSICAL EXAMINATION: Physical Exam: General: Well-nourished well-developed in no acute distress HEENT: NC/AT, pupils equal round and reactive to light, MM moist,nares clear, oropharynx clear, airway patent Neck: supple, no adenopathy, no masses. Good range of motion Lungs: clear, no wheezing, no rales no rhonchi CVS: Regular rate and rhythm no murmur gallop or rub Abdomen: Soft, active, nontender, no masses, no hepatosplenomegaly Ext: No edema, clubbing or cyanosis. Neuro: Alert and responsive, moving all 4 extremities on command, cranial nerves intact, no focal findings Skin: Intact no open lesions, no rash PSYCH: Normal mood, normal affect. Course - Re-evaluation Re-evalutation: 09/25/19 22:44 Patient was given RhoGam after a A- Blood type was noted in the emergency department, I have explained to the patient that without the RhoGam she could become sensitized. She is in agreement with receiving the RhoGam. After the infusion of IV fluids, she is feeling much more comfortable and states she is ready to be discharged. - Vital Signs Vital signs: Temp Pulse Resp BP Pulse Ox 98.9 F 111 H 16 144/76 H 98 09/25/19 17:52 09/25/19 17:52 09/25/19 17:52 09/25/19 17:52 09/25/19 17:52 - Laboratory Result Diagrams: 09/25/19 19:33 09/25/19 19:33 Laboratory results interpreted by me: 09/25/19 09/25/19 09/25/19 19:33 19:33 19:33 RDW 14.9 H Chloride 108 H Urine Protein 30 H Urine Ketones TRACE H Urine Blood MODERATE H Urine Urobilinogen 2.0 H Leukocyte Esterase Rfl TRACE H Discharge - Discharge Clinical Impression: Post- complication, Type A blood, Rh negative Condition: Good Disposition: HOME, SELF-CARE Instructions: Abdominal Pain ([facility]) Additional Instructions: Please take ibuprofen for pain, push fluids, follow-up with your doctor as needed or you may return to the emergency department if your symptoms worsen or if you have other concerns. HOME CARE INSTRUCTIONS & INFORMATION: Thank you for choosing us for your medical needs. We hope you're satisfied with the care you received. After you leave, you must properly care for your problem and, at the same time, observe its progress. Any condition can change. Some illnesses can change rapidly over hours or days. If your condition worsens, return to the Emergency Department or see your physician promptly. ABOUT YOUR X-RAYS AND EKG'S: If you had an EKG or X-rays taken, they have been read by the Emergency Physician. The X-rays and EKG's will also be read by a Radiologist or Bindery Machine Feeder Offbearer within 24 hours. If discrepancies are noted, you will be notified by telephone. Please be certain the ED has a correct telephone number & address where you can be reached. Also, realize that some fractures or abnormalities do not show up on initial X-rays. If your symptoms continue, see your physician. ABOUT YOUR LABORATORY TEST: If you had laboratory tests, the results have been reviewed by the Emergency Physician. Some test results (for example cultures) may not be available for several days. You will be contacted if any test result shows you need additional treatment. Please be certain the ED has a correct telephone number and address where you can be reached. ABOUT YOUR MEDICATIONS: You will receive instructions on how to take your medicine on the prescription label you receive. Additional information may be provided by the Pharmacy. If you have questions afterwards, call the ED for clarification or further instructions. Some prescribed medications may cause drowsiness. Do not perform tasks such as driving a car or operating machinery without consulting your Pharmacist. If you feel you need a refill of pain medication, your condition will need re-evaluation. Please do not call for a refill of any medication. ABOUT YOUR SIGNATURE: Signature of this document acknowledges to followin. Understanding that you received emergency treatment and that you may be released before al medical problems are known or treated. Please be certain the ED has a correct phone number & address where you can be reached. 2. Acknowledgement that you will arrange for follow-up care as recommended. 3. Authorization for the Emergency Physician to provide information to your follow-up Physician in order to maximize your care. AT ANY TIME, IF YOUR SYMPTOMS CHANGE SIGNIFICANTLY OR WORSEN OR YOU DEVELOP NEW SYMPTOMS, RETURN TO THE EMERGENCY DEPARTMENT IMMEDIATELY FOR RE-EVALUATION. OUR GOAL IS TO PROVIDE EXCELLENT MEDICAL CARE! WE HOPE THAT WE HAVE MET YOUR EXPECTATIONS DURING YOUR EMERGENCY DEPARTMENT VISIT AND THAT YOU FEEL YOU HAVE RECEIVED EXCELLENT CARE! Referrals: MOUNIKA BRYSON, JUDICIAL ASSISTANT-C [Primary Care Provider] - Follow up as needed
[2019-09-25 22:59] VITALS: BP 139/72
== END 2019-09-25 22:55 | disposition home or self-care (01) ==
LOC: ER 17:28
DX: O03.6 Delayed or excessive hemorrhage following complete or unspecified spontaneous abortion (principal); R10.30 Lower abdominal pain, unspecified; Z67.11 Type A blood, Rh negative; F17.200 Nicotine dependence, unspecified, uncomplicated; Z88.2 Allergy status to sulfonamides
CPT/HCPCS: 99284; 96372; 96361; 96374; 86900; 86901; 36415; 86850; 85025; 80053; 81001; J2790; J1885; J7030

== ENCOUNTER 2019-10-07 17:39 | Emergency (ER) | payer MEDICAID ==
--- NOTE | 2019-10-07 17:59 | ER Document Report ---
ED Medical Screen (RME) - General Chief Complaint: Post Surgical Bleeding Stated Complaint: ABDOMINAL PAIN, VAGINAL DISCHARGE Time Seen by Provider: 10/07/19 17:57 Mode of Arrival: Ambulatory Information source: Patient TRAVEL OUTSIDE OF THE [place] IN LAST 30 DAYS: No - HPI Notes: 10/07/19 17:58 This 29-year-old female presented to the emergency room today stating that she had had a elective D&C performed approximately 7 days ago was feeling well until yesterday she started getting some vaginal cramping and today it has progressed to a lot of discomfort in that area with radiation down both legs. - Related Data Allergies/Adverse Reactions: Sulfa (Sulfonamide Antibiotics) Allergy (Mild, Verified 08/29/19 15:48) unknown Past Medical History - Social History Family history: None - Past Medical History Cardiac Medical History: Reports: Hx Heart Murmur Neurological Medical History: Reports: Hx Seizures - as child Renal/ Medical History: Denies: Hx Peritoneal Dialysis Musculoskeltal Medical History: Reports Hx Musculoskeletal Trauma Skin Medical History: Reports Hx Cellulitis, Reports Hx MRSA - bilateral axillae Infectious Medical History: Reports: Hx MRSA - Immunizations Immunizations up to date: Yes Hx Diphtheria, Pertussis, Tetanus Vaccination: Yes - january 2015 Physical Exam - Vital signs Vitals: Temp Pulse Resp BP Pulse Ox 98.2 F 122 H 20 153/91 H 100 10/07/19 17:42 10/07/19 17:42 10/07/19 17:42 10/07/19 17:42 10/07/19 17:42 Course - Vital Signs Vital signs: Temp Pulse Resp BP Pulse Ox 98.2 F 122 H 20 153/91 H 100 10/07/19 17:42 10/07/19 17:42 10/07/19 17:42 10/07/19 17:42 10/07/19 17:42
[2019-10-07] MEDS ORDERED: ONDANSETRON HCL INJ/PF 4 MG/2 ML SDV IV ONE (18:28)
[2019-10-07] MEDS ORDERED: MORPHINE SULFATE 10 MG/ML INJ IV ONE (18:28)
--- NOTE | 2019-10-07 18:40 | ER Document Report ---
ED GI/ - General Chief Complaint: Vaginal Pain Stated Complaint: ABDOMINAL PAIN, VAGINAL DISCHARGE Time Seen by Provider: 10/07/19 17:57 Mode of Arrival: Ambulatory Notes: CHIEF COMPLAINT: Pelvic pain HPI: 29-year-old female presenting for worsening pelvic pain over the last 2 days with a dark brown vaginal discharge. Patient states she was approximately 9 weeks last week and went to [place] to [facility] and had an elective D&C. Patient has not yet followed back up with her regular DUMPCART DRIVER here in [place]. She has not had fever nausea vomiting but has had worsening pelvic pain and cramping. ROS: See HPI - all other systems were reviewed and are otherwise negative Constitutional: no fever or recent illness Eyes: no drainage, no blurred vision ENT: no runny nose, no sore throat Cardiovascular: no chest pain Resp: no SOB, no cough GI: no vomiting, no diarrhea, positive pelvic pain : no dysuria, + vaginal discharge Integumentary: no rash Allergy: no hives Musculoskeletal: no extremity pain or swelling Neurological: no numbness/tingling, no weakness MEDICATIONS: I agree with the patient medications as charted by the RN. ALLERGIES: I agree with the allergies as charted by the RN. PAST MEDICAL HISTORY/PAST SURGICAL HISTORY: Reviewed and agree as charted by RN. SOCIAL HISTORY: Reviewed and agree as charted by RN. FAMILY HISTORY: No significant familial comorbid conditions directly related to patient complaint EXAM: Reviewed vital signs as charted by RN. CONSTITUTIONAL: Alert and oriented and responds appropriately to questions. Well-appearing; well-nourished, moderately uncomfortable HEAD: Normocephalic; atraumatic EYES: PERRL; Conjunctivae clear, sclerae non-icteric ENT: normal nose; no rhinorrhea; moist mucous membranes; pharynx without lesions noted NECK: Supple without meningismus; non-tender; no cervical lymphadenopathy, no masses CARD: RRR; no murmurs, no clicks, no rubs, no gallops; symmetric distal pulses RESP: Normal chest excursion without splinting or tachypnea; breath sounds clear and equal bilaterally; no wheezes, no rhonchi, no rales, pulse oximetry 98% on room air not hypoxic ABD/GI: Obese, normal bowel sounds; non-distended; soft, moderate tenderness over the pelvis on palpation, no rebound, no guarding; no palpable organomegaly or masses : Female nurse bet taker present. External genitalia normal. No skin lesions noted. Pelvic Exam: Small amount of a brownish discharge in the vaginal vault. No purulent discharge. Cervix appears normal. No CMT. No lesions or masses. Uterus normal size and moderately tender. Difficult to ascertain direct uterine size given body habitus. Right/Left adnexa normal size and non tender. BACK: The back appears normal and is non-tender to palpation, there is no CVA tenderness EXT: Normal ROM in all joints; non-tender to palpation; no cyanosis, no effusions, no edema SKIN: Normal color for age and race; warm; dry; good turgor; no acute lesions noted NEURO: Moves all extremities equally; Motor and sensory function intact PSYCH: The patient's mood and manner are appropriate. Grooming and personal hygiene are appropriate. MDM: 29-year-old female presenting 1 week post elective D&C at approximately 9 weeks gestation. Moderate pelvic pain. Awaiting ultrasound ordered in triage process. I have ordered lab work on the patient. She does follow with Dr. Devries at the [facility] here in [place] TRAVEL OUTSIDE OF THE U.S. IN LAST 30 DAYS: No - Related Data Allergies/Adverse Reactions: Sulfa (Sulfonamide Antibiotics) Allergy (Mild, Verified 10/07/19 17:59) unknown Past Medical History - General Information source: Patient - Social History Smoking Status: Current Every Day Smoker Chew tobacco use (# tins/day): No Frequency of alcohol use: None Drug Abuse: None Family History: DM, Hypertension, Malignancy - Mother with cervical cancer, Thyroid Disfunction Patient has suicidal ideation: No Patient has homicidal ideation: No - Past Medical History Cardiac Medical History: Reports: Hx Heart Murmur Neurological Medical History: Reports: Hx Seizures - as child Renal/ Medical History: Denies: Hx Peritoneal Dialysis Musculoskeletal Medical History: Reports Hx Musculoskeletal Trauma Skin Medical History: Reports Hx Cellulitis, Reports Hx MRSA - bilateral axillae Infectious Medical History: Reports: Hx MRSA - Immunizations Immunizations up to date: Yes Hx Diphtheria, Pertussis, Tetanus Vaccination: Yes - january 2015 Physical Exam - Vital signs Vitals: Temp Pulse Resp BP Pulse Ox 98.2 F 122 H 20 153/91 H 100 10/07/19 17:42 10/07/19 17:42 10/07/19 17:42 10/07/19 17:42 10/07/19 17:42 Course - Re-evaluation Re-evalutation: 10/07/19 19:38 Ultrasound is concerning for retained products. I spoke with Dr. Michael Shrestha the DUMPCART DRIVER on-call. He recommends giving 800 mcg of Cytotec orally at this time, patient to call the office tomorrow to be followed up in 1 to 2 days, pain management. We did review the labs and ultrasound findings. I did speak with the patient at length about this and she is in agreement with the plan - Vital Signs Vital signs: Temp Pulse Resp BP Pulse Ox 98.2 F 122 H 20 153/91 H 100 10/07/19 17:42 10/07/19 17:42 10/07/19 17:42 10/07/19 17:42 10/07/19 17:42 - Laboratory Result Diagrams: 10/07/19 18:10 10/07/19 18:10 Laboratory results interpreted by me: 10/07/19 10/07/19 10/07/19 18:10 18:10 18:10 RDW 15.0 H Total Protein 8.5 H Beta HCG, Quant 94.73 H Discharge - Discharge Clinical Impression: Acute pelvic pain, female, Retained products of conception Condition: Stable Disposition: HOME, SELF-CARE Additional Instructions: Your ultrasound was concerning for retained products of conception. You were given Cytotec in the emergency department per the request of the DUMPCART DRIVER on-call that we spoke with Dr. Michael Shrestha. This medication can cause some increased cramping and bleeding. Take the pain medications as prescribed no driving if taking narcotics. They would like to follow you up in the office in 1 to 2 days please call the office tomorrow for reevaluation. If you have uncontrollable pain at home or worsening bleeding or you are saturating greater than 2 pads per hour return for reevaluation Prescriptions: Ibuprofen [Motrin 600 Mg Tablet] 600 mg PO Q6H #15 tablet Hydrocodone/Acetaminophen [[place] 5-325 mg Tablet] 1 tab PO Q4 PRN #15 tablet PRN Reason: Referrals: MICHAEL SHRESTHA MD [ACTIVE STAFF] - Follow up as needed
[2019-10-07 18:45] LABS: ABSOLUTE EOSINOPHILS # (AUTO) 0.1 10^3/uL (0.0-0.6); ABSOLUTE LYMPHOCYTES (AUTO) 1.7 10^3/uL (0.5-4.7); ABSOLUTE MONOCYTES (AUTO) 0.7 10^3/uL (0.1-1.4); ABSOLUTE NEUT (AUTO) 7.6 10^3/uL (1.7-8.2); BASOPHILS % (AUTO) 0.2 % (0-2); HEMATOCRIT 39.1 % (36.0-47.0); LYMPHOCYTES % (AUTO) 16.6 % (13-45); MEAN CORPUSCULAR HEMOGLOBIN 28.7 pg (27.0-33.4); MEAN CORPUSCULAR HGB CONC 33.3 g/dL (32.0-36.0); MEAN CORPUSCULAR VOLUME 86 fl (80-97); MONOCYTES % (AUTO) 6.7 % (3-13); PLATELET COUNT 283 10^3/uL (150-450); RED BLOOD COUNT 4.54 10^6/uL (3.72-5.28); SEGMENTED NEUTROPHILS % (AUTO) 75.5 % (42-78); TOTAL CELLS COUNTED % (AUTO) 100 %; WHITE BLOOD COUNT 10.1 10^3/uL (4.0-10.5)
[2019-10-07 19:02] LABS: ALBUMIN 4.7 g/dL (3.5-5.0); ALKALINE PHOSPHATASE 73 U/L (38-126); ANION GAP 11 (5-19); ASPARTATE AMINO TRANSFERASE 22 U/L (14-36); BILIRUBIN,DIRECT 0.3 mg/dL (0.0-0.4); BILIRUBIN,TOTAL 0.5 mg/dL (0.2-1.3); BLOOD UREA NITROGEN 7 mg/dL (7-20); CALCIUM 10.2 mg/dL (8.4-10.2); CARBON DIOXIDE 27 mmol/L (22-30); CHLORIDE 103 mmol/L (98-107); GLUCOSE 81 mg/dL (75-110); POTASSIUM 4.2 mmol/L (3.6-5.0); TOTAL PROTEIN 8.5 g/dL (6.3-8.2)
[2019-10-07 19:04] LABS: BACTERIA (WET MOUNT) 3+ BACTERIA SEEN; RBCS (WET MOUNT) FEW RBCS SEEN; T.VAGINALIS (WET MOUNT) NO TRICHOMONAS SEEN; WBCS (WET MOUNT) 3+ WBCS SEEN; YEAST (WET MOUNT) NO YEAST SEEN
--- NOTE | 2019-10-07 19:30 | RADIOLOGY REPORT (SQ) ---
EXAM DESCRIPTION: U/S NON OB PEL TV W/DOPPLER COMPLETED DATE/TIME: 10/07/2019 6:31 pm REASON FOR STUDY: pain Status post D & C 1 week ago COMPARISON: OB ultrasound 08/29/2019. TECHNIQUE: Grayscale images acquired of the pelvis via transvaginal approach and recorded on PACS. A dditional selected color Doppler images recorded. LIMITATIONS: None. FINDINGS: UTERUS: The uterus measures 10.5 x 5.3 x 5.4 cm. No focal myometrial mass was noted. ENDOMETRIAL STRIPE: The endometrium measures 1.9 cm in double wall thickness, and appears heterogeneo us with mild increased vascularity on Doppler images. CERVIX: The cervix measures 3.2 cm in length. RIGHT OVARY AND DOPPLER: Ovary not visualized. LEFT OVARY AND DOPPLER: Ovary not visualized. FREE FLUID: None noted. IMPRESSION: 1. Thickened and heterogeneous endometrium with mild increased vascularity, concerning for retained products of conception. OBGYN consult recommended. 2. Nonvisualized ovaries. TECHNICAL DOCUMENTATION: JOB ID: [id number] 2010 [employer]- All Rights Reserved Rev-12/02 Reading location - IP/workstation name: [email or web address]
[2019-10-07] MEDS ORDERED: KETOROLAC TROMETHAMINE INJ/PF 30 MG/1 ML SDV IV ONE (19:37)
[2019-10-07] MEDS ORDERED: MISOPROSTOL 0.2 MG TABLET PO ONE (19:38)
[2019-10-07 20:01] VITALS: BP 136/75
[2019-10-07 20:30] LABS: CHLAM PCR DETECTED (NOT DETECT)
== END 2019-10-07 19:59 | disposition home or self-care (01) ==
LOC: ER 17:39
DX: O07.4 Failed attempted termination of pregnancy without complication (principal); R10.2 Pelvic and perineal pain; N89.8 Other specified noninflammatory disorders of vagina; Z88.2 Allergy status to sulfonamides
CPT/HCPCS: 99284; 96374; 96375; 86900; 86901; 36415; 87210; 84702; 85025; 80053; 87491; 87591; 76830; 93976; J1885; J2270; J2405

== ENCOUNTER 2019-10-31 19:10 | Emergency (ER) | payer MEDICAID ==
--- NOTE | 2019-10-31 19:19 | ER Document Report ---
ED Medical Screen (RME) - General Stated Complaint: ABDOMINAL PAIN Notes: Patient is a 29-year-old female with a past medical history of D&C about a month ago with a subsequent reported cervical infection who was seen here placed on pain medications and put on antibiotics by her KITCHEN CLERK about 3 weeks ago who returns with similar complaints. States that she started having pelvic pains again that radiates to the bilateral back. States this feels similar to last time she had the cervical infection after the D&C. States that she was placed on some control at that time as well but could not stomach the taste of the medicine while she was on the antibiotic so she stopped taking the control. She denies any fever vomiting or diarrhea. No dysuria. I have treated and performed a rapid initial assessment of this patient. A comprehensive ED assessment and evaluation of the patient, analysis of test results and completion of medical decision making process will be conducted by additional ED providers. PHYSICAL EXAMINATION: GENERAL: Well-appearing, well-nourished and in no acute distress. A&Ox4. Answers questions appropriately. TRAVEL OUTSIDE OF THE U.S. IN LAST 30 DAYS: No - Related Data Allergies/Adverse Reactions: Sulfa (Sulfonamide Antibiotics) Allergy (Mild, Verified 10/07/19 17:59) unknown Past Medical History - Social History Family history: None - Past Medical History Cardiac Medical History: Reports: Hx Heart Murmur Neurological Medical History: Reports: Hx Seizures - as child Renal/ Medical History: Denies: Hx Peritoneal Dialysis Musculoskeltal Medical History: Reports Hx Musculoskeletal Trauma Skin Medical History: Reports Hx Cellulitis, Reports Hx MRSA - bilateral axillae Infectious Medical History: Reports: Hx MRSA Past Surgical History: Reports: Hx Gynecologic Surgery - Immunizations Immunizations up to date: Yes Hx Diphtheria, Pertussis, Tetanus Vaccination: Yes - january 2015 Physical Exam - Vital signs Vitals: Temp Pulse Resp BP Pulse Ox 97.9 F 80 15 143/88 H 100 10/31/19 19:15 10/31/19 19:15 10/31/19 19:15 10/31/19 19:15 10/31/19 19:15 Course - Vital Signs Vital signs: Temp Pulse Resp BP Pulse Ox 97.9 F 80 15 143/88 H 100 10/31/19 19:15 10/31/19 19:15 10/31/19 19:15 10/31/19 19:15 10/31/19 19:15
[2019-10-31 19:43] LABS: ABSOLUTE EOSINOPHILS # (AUTO) 0.3 10^3/uL (0.0-0.6); ABSOLUTE LYMPHOCYTES (AUTO) 3.3 10^3/uL (0.5-4.7); ABSOLUTE MONOCYTES (AUTO) 0.5 10^3/uL (0.1-1.4); BASOPHILS % (AUTO) 0.3 % (0-2); EOSINOPHILS % (AUTO) 3.5 % (0-6); HEMATOCRIT 41.4 % (36.0-47.0); HEMOGLOBIN 13.9 g/dL (12.0-15.5); LYMPHOCYTES % (AUTO) 36.1 % (13-45); MEAN CORPUSCULAR HGB CONC 33.5 g/dL (32.0-36.0); MEAN CORPUSCULAR VOLUME 87 fl (80-97); MONOCYTES % (AUTO) 5.1 % (3-13); PLATELET COUNT 291 10^3/uL (150-450); RED BLOOD COUNT 4.77 10^6/uL (3.72-5.28); RED CELL DISTRIBUTION WIDTH 15.7 % (11.5-14.0); TOTAL CELLS COUNTED % (AUTO) 100 %; WHITE BLOOD COUNT 9.1 10^3/uL (4.0-10.5)
[2019-10-31 19:51] LABS: APPEARANCE,URINE CLEAR; BILIRUBIN,URINE NEGATIVE (NEGATIVE); COLOR,URINE YELLOW; GLUCOSE, URINE NEGATIVE (NEGATIVE); KETONES,URINE NEGATIVE (NEGATIVE); PROTEIN,URINE NEGATIVE (NEGATIVE); URINE SPECIFIC GRAVITY 1.015
[2019-10-31 20:00] LABS: ALBUMIN 4.4 g/dL (3.5-5.0); ALKALINE PHOSPHATASE 64 U/L (38-126); ASPARTATE AMINO TRANSFERASE 22 U/L (14-36); BILIRUBIN,TOTAL 0.3 mg/dL (0.2-1.3); BLOOD UREA NITROGEN 9 mg/dL (7-20); CALCIUM 9.9 mg/dL (8.4-10.2); GLUCOSE 96 mg/dL (75-110); POTASSIUM 4.6 mmol/L (3.6-5.0); TOTAL PROTEIN 8.1 g/dL (6.3-8.2)
[2019-10-31 20:05] LABS: ANION GAP 5 (5-19); CARBON DIOXIDE 27 mmol/L (22-30); CHLORIDE 108 mmol/L (98-107)
--- NOTE | 2019-10-31 20:15 | RADIOLOGY REPORT (SQ) ---
We have a the US PELVIS TRANSVAGINAL HISTORY: 29 years Female pelvic pain. D&C one month ago. Irregular menses. COMPARISON: Pelvic ultrasound 10/07/2019 Technique: Transvaginal Imaging of the pelvis was performed. Color and spectral imaging was performed. Uterus: The uterus measures 9.2 x 5.1 x 4.9 cm. The cervix is closed and measures 2.3 cm. The myometrium appears normal. The endometrium is normal measures 6 mm. There may be a very small thin sliver of fluid within the endometrial canal. Right Ovary: Measures 2.3 x 3.4 x 2.6 cm. Normal follicles are noted.. Normal color and spectral doppler waveforms Left Ovary: Measures 2.0 x 2.6 x 1.5 cm. There is a dominant follicle which measures up to 1.6 cm in size.. Normal color and spectral doppler waveforms Other: No free fluid IMPRESSION: No acute process. Unremarkable ultrasound of the uterus and ovaries.
--- NOTE | 2019-10-31 21:07 | ER Document Report ---
Entered by JEANNINE ADAMES SCRIBE 10/31/192043 Acting as scribe for:JOCELYNE SANCHEZ DO ED General - General Chief Complaint: Pelvic Pain Stated Complaint: ABDOMINAL PAIN Time Seen by Provider: 10/31/19 20:39 Information source: Patient Notes: This 29-year-old female presents to the emergency department complaining of lower abdominal pain that began three days ago and has worsened today. Patient describes the pain as sharp, 5/10 and relieved with hot showers. Patient reports constipation with her last bowel movement yesterday. Patient denies fever, vaginal discharge, vomiting, diarrhea and dysuria. Patient mentions that she had a D&C one month ago and was seen in the emergency department for a cervical infection. Patient states that she was prescribed medication at the emergency department. TRAVEL OUTSIDE OF THE [place] IN LAST 30 DAYS: No - Related Data Allergies/Adverse Reactions: Sulfa (Sulfonamide Antibiotics) Allergy (Mild, Verified 10/07/19 17:59) unknown Past Medical History - General Information source: Patient - Social History Smoking Status: Current Every Day Smoker Cigarette use (# per day): Yes Chew tobacco use (# tins/day): No Family History: DM, Hypertension, Malignancy - Mother with cervical cancer, T hyroid Disfunction Patient has suicidal ideation: No Patient has homicidal ideation: No - Past Medical History Cardiac Medical History: Reports: Hx Heart Murmur Neurological Medical History: Reports: Hx Seizures - as child Musculoskeletal Medical History: Reports Hx Musculoskeletal Trauma Skin Medical History: Reports Hx Cellulitis, Reports Hx MRSA - bilateral axillae Infectious Medical History: Reports: Hx MRSA Past Surgical History: Reports: Hx Dilation and Curettage, Hx Gynecologic Surgery - Immunizations Immunizations up to date: Yes Hx Diphtheria, Pertussis, Tetanus Vaccination: Yes - january 2015 Review of Systems - Review of Systems Constitutional: See HPI. denies: Fever EENT: No symptoms reported Cardiovascular: No symptoms reported Respiratory: No symptoms reported Gastrointestinal: See HPI, Abdominal pain, Constipation, Last bowel movement. denies: Diarrhea, Nausea, Vomiting Genitourinary: No symptoms reported Female Genitourinary: See HPI. denies: Vaginal discharge Musculoskeletal: No symptoms reported Skin: No symptoms reported Hematologic/Lymphatic: No symptoms reported Neurological/Psychological: No symptoms reported -: Yes All other systems reviewed and negative Physical Exam - Vital signs Vitals: Temp Pulse Resp BP Pulse Ox 97.9 F 80 15 143/88 H 100 10/31/19 19:15 10/31/19 19:15 10/31/19 19:15 10/31/19 19:15 10/31/19 19:15 - Notes Notes: Physical Exam: General: Alert, appears well. HEENT: Normocephalic. Atraumatic. PERRL. Extraocular movements intact. Oropharynx clear. Neck: Supple. Non-tender. Respiratory: No respiratory distress. Clear and equal breath sounds bilaterally. Cardiovascular: Regular rate and rhythm. Abdominal: Mild suprapubic tenderness to palpation. Mild LLQ tenderness to palpation. No distension. Normal Bowel Sounds. Back: No gross abnormalities. Extremities: Moves all four extremities. Upper extremities: Normal inspection. Normal ROM. Lower extremities: Normal inspection. No edema. Normal ROM. Neurological: Normal cognition. AAOx4. Normal speech. Psychological: Normal affect. Normal Mood. Skin: Warm. Dry. Normal color. Course - Re-evaluation Re-evalutation: 10/31/19 21:07 MDM 29 year old with pelvic pain s/p D and c about a month ago. Lab and sono here is reassuring. Discussed Speech Language Pathologist Travel follow up and antibiotics and she will take tylenol and or ibuprofen for pain. She expressed understanding. - Vital Signs Vital signs: Temp Pulse Resp BP Pulse Ox 97.9 F 80 15 143/88 H 100 10/31/19 19:15 10/31/19 19:15 10/31/19 19:15 10/31/19 19:15 10/31/19 19:15 - Laboratory Result Diagrams: 10/31/19 19:20 10/31/19 19:20 Laboratory results interpreted by me: 10/31/19 10/31/19 10/31/19 19:20 19:20 19:20 RDW 15.7 H Chloride 108 H Urine Urobilinogen 2.0 H - Diagnostic Test Radiology reviewed: Reports reviewed Discharge - Discharge Clinical Impression: Pelvic pain Condition: Good Disposition: HOME, SELF-CARE Instructions: Antibiotic Therapy ([facility]), Doxycycline ([facility]), Ob-Speech Language Pathologist [facility], Pelvic Pain ([facility]) Additional Instructions: Take tylenol and or ibuprofen as discussed. See your doctor in follow up. Rest. Please return here for any problems or any concerns including but not limited to fever, worsening pain or other concerns. Referrals: BARBI PIPER MD [ACTIVE STAFF] - 11/01/19 I personally performed the services described in the documentation, reviewed and edited the documentation which was dictated to the scribe in my presence, and it accurately records my words and actions.
[2019-10-31 22:07] VITALS: BP 133/79
[2019-11-01 00:15] LABS: CHLAM PCR NOT DETECTED (NOT DETECT)
== END 2019-10-31 22:07 | disposition home or self-care (01) ==
LOC: ER 19:10
DX: R10.2 Pelvic and perineal pain (principal); M54.9 Dorsalgia, unspecified; K59.00 Constipation, unspecified; F17.210 Nicotine dependence, cigarettes, uncomplicated; Z88.2 Allergy status to sulfonamides; Z86.14 Personal history of Methicillin resistant Staphylococcus aureus infection
CPT/HCPCS: 36415; 76830; 80053; 81001; 84703; 85025; 87491; 87591; 93976; 99284

== ENCOUNTER 2020-02-12 19:17 | Emergency (ER) | payer MEDICAID ==
[2020-02-12] MEDS ORDERED: CIPROFLOXACIN HCL/DEXAMETH OTIC DROP 7.5 ML AD ONE (22:38)
--- NOTE | 2020-02-12 22:40 | ER Document Report ---
HPI - HPI Time Seen by Provider: 02/12/20 22:11 Pain Level: 5 Notes: Otherwise healthy 29-year-old female presents the emergency department concern for right ear pain. Patient reports she went to a [place] water floating [place] where she got water in her ear. She states since then she has had worsening pain. She denies any fever or chills. She has had ear infections in the past. - ROS Systems Reviewed and Negative: Yes All other systems reviewed and negative - CONSTITUTIONAL Constitutional: DENIES: Fever, Chills - EENT EENT: REPORTS: Ear Pain - Right - REPRODUCTIVE Reproductive: DENIES: : Past Medical History - General Information source: Patient - Social History Smoking Status: Current Every Day Smoker Family History: DM, Hypertension, Malignancy - Mother with cervical cancer, Thyroid Disfunction Patient has homicidal ideation: No - Past Medical History Cardiac Medical History: Reports: Hx Heart Murmur Neurological Medical History: Reports: Hx Seizures - as child Renal/ Medical History: Denies: Hx Peritoneal Dialysis Musculoskeletal Medical History: Reports Hx Musculoskeletal Trauma Skin Medical History: Reports Hx Cellulitis, Reports Hx MRSA - bilateral axillae Infectious Medical History: Reports: Hx MRSA Past Surgical History: Reports: Hx Dilation and Curettage, Hx Gynecologic Surgery - Immunizations Immunizations up to date: Yes Hx Diphtheria, Pertussis, Tetanus Vaccination: Yes - january 2015 [employer] Provider Document - CONSTITUTIONAL Notes: PHYSICAL EXAMINATION: GENERAL: Well-appearing, well-nourished and in no acute distress. HEAD: Atraumatic, normocephalic. EYES: Pupils equal round extraocular movements intact, conjunctiva are normal. ENT: Nares patent, right ear canal erythematous, macerated, left canal unremarkable. Bilateral TMs unremarkable. No mastoid tenderness. NECK: Normal range of motion, no cervical lymphadenopathy. LUNGS: No respiratory distress, lung sounds clear and equal bilaterally. Musculoskeletal: Normal range of motion NEUROLOGICAL: Normal speech, normal gait. PSYCH: Normal mood, normal affect. SKIN: Warm, Dry, normal turgor, no rashes or lesions noted. - INFECTION CONTROL TRAVEL OUTSIDE OF THE [place] IN LAST 30 DAYS: No Course - Re-evaluation Re-evalutation: Patient appears well, nontoxic, exam is consistent with otitis externa. Patient will be discharged home with Ciprodex drops. I discussed with her the use of these medications, patient verbalized understanding. ED return precautions discussed, patient verbalized understanding and agreement with plan. - Vital Signs Vital signs: Temp Pulse Resp BP Pulse Ox 99.0 F 103 H 20 166/90 H 100 02/12/20 20:40 02/12/20 20:40 02/12/20 20:40 02/12/20 20:40 02/12/20 20:40 Discharge - Discharge Clinical Impression: Otitis externa Qualifiers: Otitis externa type: unspecified type Chronicity: acute Laterality: right Qualified Code(s): H60.501 - Unspecified acute noninfective otitis externa, right ear Condition: Stable Disposition: HOME, SELF-CARE Instructions: Otitis Externa ([facility]) Additional Instructions: APPY 4 DROPS OF THE CIPRODEX EAR DROPS TO THE RIGHT EAR TWICE DAILY FOR 7 DAYS. CONTINUE TAKING SUDAFED DISCUSSED. IBUPROFEN OTC FOR PAIN. Forms: Return to Work
[2020-02-12 22:57] VITALS: BP 147/101
== END 2020-02-12 22:51 | disposition home or self-care (01) ==
LOC: ER 19:17
DX: H60.501 Unspecified acute noninfective otitis externa, right ear (principal); H92.01 Otalgia, right ear; F17.200 Nicotine dependence, unspecified, uncomplicated
CPT/HCPCS: 99282; J3490

== ENCOUNTER 2020-05-21 20:34 | Emergency (ER) | payer MEDICAID ==
[2020-05-21 21:09] VITALS: BP 145/103
[2020-05-21] MEDS ORDERED: HYDROCODONE/ACETAMINOPHEN 5-325 MG (6 TAB/ER DISP) PO PRN (21:52)
--- NOTE | 2020-05-21 22:00 | ER Document Report ---
HPI - HPI Time Seen by Provider: 05/21/20 21:48 Context: Patient is a 29-year-old female presents emergency department with a chief complaint of tooth pain her left bottom jaw area. Patient states that she has a cap to the area and she feels like she possibly got a crack in it. States that she felt feverish. Denies any shortness of breath or difficulty breathing. Denies any contact with anybody who tested positive for COVID-19. - ROS Systems Reviewed and Negative: Yes All other systems reviewed and negative - CONSTITUTIONAL Constitutional: REPORTS: Fever - Subjective - EENT EENT: DENIES: Sore Throat, Ear Pain, Nasal Drainage-Clear, Nasal Drainage- Purulent, Congestion, Eye problems Notes: Tooth pain - RESPIRATORY Respiratory: DENIES: Trouble Breathing, Coughing - GASTROINTESTINAL Gastrointestinal: DENIES: Abdominal Pain, Nausea, Patient vomiting - REPRODUCTIVE Reproductive: DENIES: : - MUSCULOSKELETAL Musculoskeletal: DENIES: Extremity pain - DERM Skin Color: Normal Skin Problems: None Past Medical History - General Information source: Patient - Social History Smoking Status: Unknown if Ever Smoked Family History: DM, Hypertension, Malignancy - Mother with cervical cancer, Thyroid Disfunction - Past Medical History Cardiac Medical History: Reports: Hx Heart Murmur Neurological Medical History: Reports: Hx Seizures - as child Renal/ Medical History: Denies: Hx Peritoneal Dialysis Musculoskeletal Medical History: Reports Hx Musculoskeletal Trauma Skin Medical History: Reports Hx Cellulitis, Reports Hx MRSA - bilateral axillae Infectious Medical History: Reports: Hx MRSA Past Surgical History: Reports: Hx Dilation and Curettage, Hx Gynecologic Surgery - Immunizations Immunizations up to date: Yes Hx Diphtheria, Pertussis, Tetanus Vaccination: Yes - january 2015 [facility] Provider Document - CONSTITUTIONAL Agree With Documented VS: Yes Exam Limitations: No Limitations General Appearance: No Apparent Distress - INFECTION CONTROL TRAVEL OUTSIDE OF THE [place] IN LAST 30 DAYS: No - HEENT HEENT: Atraumatic, Normocephalic, PERRLA Mouth Diagram: 1 - Crack noted to cap/filling - NECK Neck: Normal Inspection - RESPIRATORY Respiratory: Breath Sounds Normal, No Respiratory Distress - CARDIOVASCULAR Cardiovascular: Regular Rate, Regular Rhythm Pulses: Normal: Radial - GI/ABDOMEN Gastrointestinal: Abdomen Soft, Abdomen Non-Tender - MUSCULOSKELETAL/EXTREMETIES Musculoskeletal/Extremeties: FROM - NEURO Level of Consciousness: Awake, Alert, Appropriate Motor/Sensory: No Motor Deficit, No Sensory Deficit - DERM Integumentary: Warm, Dry, No Rash Course - Re-evaluation Re-evalutation: 05/21/20 22:00 Patient's physical exam and history is most consistent with a infected tooth. Patient is able to swallow, no facial swelling noted, airway is patent, vital signs are normal. I do not suspect Kael's angina, peritonsilar abscess, or airway obstruction. The patient will be started on oral antibiotics. I have gi stew the patient education on their antibiotics. Patient was given instructions to follow-up with a dentist this week. Return precautions were given. Verbal discharge instructions were given. Patient verbalized understanding. Patient is stable for discharge. - Vital Signs Vital signs: Temp Pulse Resp BP Pulse Ox 97.8 F 84 18 145/103 H 100 05/21/20 21:08 05/21/20 21:08 05/21/20 21:08 05/21/20 21:08 05/21/20 21:08 Discharge - Discharge Clinical Impression: Tooth pain Condition: Stable Disposition: HOME, SELF-CARE Additional Instructions: You have been seen in the emergency department for a toothache. You may take ibuprofen 600 mg and Tylenol 650 mg every 6 hours as needed for the pain. You can take [place] 1 tablet every 6 hours for extreme pain. You have also been prescribed antibiotics. Please take the antibiotics as prescribed, even if you start to feel better. If you develop a fever greater than 100.4 F, or have any symptoms that are worrisome to you, please return to the emergency department. Please follow-up with a dentist this week in regards to your visit. Prescriptions: Penicillin V Potassium [Penicillin Vk 500 mg Tablet] 500 mg PO QID #40 tablet Forms: Return to Work
[2020-05-21] MEDS ORDERED: PENICILLIN V POTASSIUM 500 MG TABLET PO ONE (22:03)
[2020-05-21] MEDS ORDERED: LIDOCAINE 2% VISCOUS SOLN 15 ML UDCUP PO ONE (23:13)
== END 2020-05-21 23:20 | disposition home or self-care (01) ==
LOC: ER 20:34
DX: K08.9 Disorder of teeth and supporting structures, unspecified (principal); R50.9 Fever, unspecified; Z86.14 Personal history of Methicillin resistant Staphylococcus aureus infection
CPT/HCPCS: 99284; J3490 ×2

== ENCOUNTER 2020-06-07 10:05 | Emergency (ER) | payer MEDICAID ==
[2020-06-07] MEDS ORDERED: ACETAMINOPHEN 325 MG TABLET PO ONE (10:28)
[2020-06-07] MEDS ORDERED: METOCLOPRAMIDE HCL 10 MG TABLET PO ONE (10:29)
--- NOTE | 2020-06-07 10:30 | ER Document Report ---
ED Medical Screen (RME) - General Chief Complaint: Abdominal Pain Stated Complaint: ABDOMINAL PAIN Time Seen by Provider: 06/07/20 10:21 Primary Care Provider: DARIEN CHIN MD [Primary Care Provider] - Follow up as needed Notes: Patient is a 29-year-old female who presents emergency department with a chief complaint of mid lower abdominal pain. Patient states that she had her last menstrual cycle on May 05. States that she took multiple tests at home and some are positive and some are negative. Patient has history of an ectopic last year. Exam: Mildly tender mid lower abdomen. I have greeted and performed a rapid initial assessment of this patient. A comprehensive ED assessment and evaluation of the patient, analysis of test results and completion of medical decision making process will be conducted by an additional ED providers. TRAVEL OUTSIDE OF THE [place] IN LAST 30 DAYS: No - Related Data Allergies/Adverse Reactions: Sulfa (Sulfonamide Antibiotics) Allergy (Mild, Verified 06/07/20 10:18) unknown Past Medical History - Social History Chew tobacco use (# tins/day): No Frequency of alcohol use: Occasional Drug Abuse: None Family history: None - Past Medical History Cardiac Medical History: Reports: Hx Heart Murmur Neurological Medical History: Reports: Hx Seizures - as child Renal/ Medical History: Denies: Hx Peritoneal Dialysis Musculoskeltal Medical History: Reports Hx Musculoskeletal Trauma Skin Medical History: Reports Hx Cellulitis, Reports Hx MRSA - bilateral axillae Infectious Medical History: Reports: Hx MRSA Past Surgical History: Reports: Hx Dilation and Curettage, Hx Gynecologic Surgery - Immunizations Immunizations up to date: Yes Hx Diphtheria, Pertussis, Tetanus Vaccination: Yes - january 2015 Physical Exam - Vital signs Vitals: Temp Pulse Resp BP Pulse Ox 98.2 F 95 16 147/83 H 100 06/07/20 10:09 06/07/20 10:09 06/07/20 10:09 06/07/20 10:09 06/07/20 10:09 Course - Vital Signs Vital signs: Temp Pulse Resp BP Pulse Ox 98.2 F 95 16 147/83 H 100 06/07/20 10:09 06/07/20 10:09 06/07/20 10:09 06/07/20 10:09 06/07/20 10:09 Doctor's Discharge - Discharge Referrals: DARIEN CHIN MD [Primary Care Provider] - Follow up as needed
[2020-06-07 11:13] LABS: ABSOLUTE EOSINOPHILS # (AUTO) 0.2 10^3/uL (0.0-0.6); ABSOLUTE LYMPHOCYTES (AUTO) 2.1 10^3/uL (0.5-4.7); ABSOLUTE MONOCYTES (AUTO) 0.4 10^3/uL (0.1-1.4); ABSOLUTE NEUT (AUTO) 5.4 10^3/uL (1.7-8.2); BASOPHILS % (AUTO) 0.3 % (0-2); EOSINOPHILS % (AUTO) 2.2 % (0-6); HEMATOCRIT 41.2 % (36.0-47.0); HEMOGLOBIN 13.5 g/dL (12.0-15.5); LYMPHOCYTES % (AUTO) 25.9 % (13-45); MEAN CORPUSCULAR HEMOGLOBIN 28.6 pg (27.0-33.4); MEAN CORPUSCULAR HGB CONC 32.8 g/dL (32.0-36.0); MEAN CORPUSCULAR VOLUME 87 fl (80-97); MONOCYTES % (AUTO) 5.3 % (3-13); PLATELET COUNT 268 10^3/uL (150-450); RED BLOOD COUNT 4.72 10^6/uL (3.72-5.28); RED CELL DISTRIBUTION WIDTH 13.6 % (11.5-14.0); SEGMENTED NEUTROPHILS % (AUTO) 66.3 % (42-78); TOTAL CELLS COUNTED % (AUTO) 100 %; WHITE BLOOD COUNT 8.2 10^3/uL (4.0-10.5)
[2020-06-07 11:17] LABS: ALBUMIN 4.3 g/dL (3.5-5.0); ALKALINE PHOSPHATASE 58 U/L (38-126); ANION GAP 10 (5-19); ASPARTATE AMINO TRANSFERASE 19 U/L (14-36); BILIRUBIN,TOTAL 0.3 mg/dL (0.2-1.3); BLOOD UREA NITROGEN 14 mg/dL (7-20); CARBON DIOXIDE 21 mmol/L (22-30); CHLORIDE 110 mmol/L (98-107); GLUCOSE 87 mg/dL (75-110); POTASSIUM 4.5 mmol/L (3.6-5.0); TOTAL PROTEIN 7.4 g/dL (6.3-8.2)
[2020-06-07 11:35] LABS: APPEARANCE,URINE SLIGHTLY-CLOUDY; BILIRUBIN,URINE NEGATIVE (NEGATIVE); COLOR,URINE YELLOW; GLUCOSE, URINE NEGATIVE (NEGATIVE); KETONES,URINE NEGATIVE (NEGATIVE); PROTEIN,URINE NEGATIVE (NEGATIVE); URINE SPECIFIC GRAVITY 1.019; UROBILINOGEN,URINE NEGATIVE mg/dL (<2.0)
[2020-06-07] MEDS ORDERED: CEPHALEXIN 500 MG CAPSULE PO ONE (11:59)
[2020-06-07] MEDS ORDERED: HYDROCODONE/ACETAMINOPHEN 5-325 MG TABLET PO ONE (11:59)
[2020-06-07] MEDS ORDERED: ONDANSETRON 4 MG TAB.RAPDIS PO ONE (11:59)
--- NOTE | 2020-06-07 12:00 | ER Document Report ---
ED GI/ - General Chief Complaint: Abdominal Pain Stated Complaint: ABDOMINAL PAIN Time Seen by Provider: 06/07/20 10:21 Primary Care Provider: DARIEN CHIN MD [ACTIVE STAFF] - 06/09/20 Mode of Arrival: Ambulatory Information source: Patient Notes: Patient presents complaining of lower abdominal pain for the past 3 days. Patient states that she has had vomiting daily for the past 2 weeks although has only been nauseous today and has not had any vomiting episodes today. Patient states she will typically vomit only with meals. Patient denies any fever or urinary symptoms. Patient does admit to some vaginal discharge. Patient denies any concern about STI. Patient states she recently had a Pap test and had cultures obtained during that visit. Patient states she has had irregular menstrual cycle and has had some positive test and a negative test at home. Patient states she is primarily here to determine whether or not she is . TRAVEL OUTSIDE OF THE [place] IN LAST 30 DAYS: No - HPI Patient complains to provider of: Pelvic pain, Vomiting Onset: Other - Pelvic pain for 3 days, vomiting for 2 weeks Timing/Duration: Waxing and waning Quality of pain: Other - Soreness Pain Level: 3 Location: Suprapubic Vaginal bleeding (Compared to normal period): None Associated symptoms: Nausea, Vaginal discharge, Vomiting. denies: Diarrhea, Dysuria, Fever, Loss of appetite, Urinary hesitancy, Urinary frequency, Urinary retention, Urinary urgency Exacerbated by: Denies Relieved by: Denies Similar symptoms previously: No Recently seen / treated by doctor: Yes - Related Data Allergies/Adverse Reactions: Sulfa (Sulfonamide Antibiotics) Allergy (Mild, Verified 06/07/20 10:18) unknown Past Medical History - General Information source: Patient - Social History Smoking Status: Current Every Day Smoker Chew tobacco use (# tins/day): No Frequency of alcohol use: Occasional Drug Abuse: None Occupation: [employer] Family History: DM, Hypertension, Malignancy - Mother with cervical cancer, Thyroid Disfunction - Past Medical History Cardiac Medical History: Reports: Hx Heart Murmur Neurological Medical History: Reports: Hx Seizures - as child Renal/ Medical History: Denies: Hx Peritoneal Dialysis Musculoskeletal Medical History: Reports Hx Musculoskeletal Trauma Skin Medical History: Reports Hx Cellulitis, Reports Hx MRSA - bilateral axillae Infectious Medical History: Reports: Hx MRSA Past Surgical History: Reports: Hx Dilation and Curettage, Hx Gynecologic Surgery - Immunizations Immunizations up to date: Yes Hx Diphtheria, Pertussis, Tetanus Vaccination: Yes - january 2015 Review of Systems - Review of Systems Constitutional: No symptoms reported. denies: Fever EENT: No symptoms reported Cardiovascular: No symptoms reported. denies: Chest pain Respiratory: No symptoms reported. denies: Cough, Short of breath Gastrointestinal: Abdominal pain, Nausea, Vomiting. denies: Diarrhea Genitourinary: No symptoms reported. denies: Dysuria, Flank pain Female Genitourinary: Vaginal discharge. denies: Vaginal bleeding Musculoskeletal: No symptoms reported. denies: Back pain Skin: No symptoms reported Hematologic/Lymphatic: No symptoms reported Neurological/Psychological: No symptoms reported Physical Exam - Vital signs Vitals: Temp Pulse Resp BP Pulse Ox 98.2 F 95 16 147/83 H 100 06/07/20 10:09 06/07/20 10:09 06/07/20 10:09 06/07/20 10:09 06/07/20 10:09 - General General appearance: Appears well, Alert In distress: None - HEENT Head: Normocephalic, Atraumatic Eyes: Normal Conjunctiva: Normal - Respiratory Respiratory status: No respiratory distress Chest status: Nontender Breath sounds: Normal. No: Rales, Rhonchi, Stridor, Wheezing Chest palpation: Normal - Cardiovascular Rhythm: Regular Heart sounds: S1 appreciated, S2 appreciated - Abdominal Inspection: Normal Distension: No distension Bowel sounds: Normal Tenderness: Tender - suprapubic Organomegaly: No organomegaly - Back Back: Normal, Nontender. No: CVA tenderness - Extremities General upper extremity: Normal inspection, Normal ROM General lower extremity: Normal inspection, Normal ROM - Neurological Neuro grossly intact: Yes Cognition: Normal Shi Coma Scale Eye Opening: Spontaneous Shi Coma Scale Verbal: Oriented Kincaid Coma Scale Motor: Obeys Commands Shi Coma Scale Total: 15 - Psychological Associated symptoms: Normal affect, Normal mood - Skin Skin Temperature: Warm Skin Moisture: Dry Skin Color: Normal Course - Re-evaluation Re-evalutation: 06/07/20 12:00 Patient declines pelvic examination at this time. Patient denies any concern about STI. Patient states that she just recently had a Pap test and everything was negative. Patient states she primarily came to make certain that she was not . 06/07/20 12:37 Patient reports vomiting her nausea medication. Offered patient suppository antiemetic although patient declines. Patient states that she would just wants to go home. Patient does not want to stay for any additional treatment. Patient is agreeable with and intramuscular antibiotic injection at this time. Patient encouraged to return for any persistent vomiting, concerns about d ehydration, fever or any new or worsening symptoms or if she would like to have a pelvic exam for further evaluation of her vaginal discharge symptoms. - Vital Signs Vital signs: Temp Pulse Resp BP Pulse Ox 98.2 F 95 16 147/83 H 100 06/07/20 10:09 06/07/20 10:09 06/07/20 10:09 06/07/20 10:09 06/07/20 10:09 - Laboratory Result Diagrams: 06/07/20 10:44 06/07/20 10:44 Laboratory results interpreted by me: 06/07/20 06/07/20 10:44 10:44 Chloride 110 H Carbon Dioxide 21 L Leukocyte Esterase Rfl MODERATE H - Diagnostic Test Radiology reviewed: Reports reviewed Discharge - Discharge Clinical Impression: Nausea and vomiting Qualifiers: Vomiting type: unspecified Vomiting Intractability: unspecified Qualified Code(s): R11.2 - Nausea with vomiting, unspecified UTI (urinary tract infection) Qualifiers: Urinary tract infection type: site unspecified Hematuria presence: without carlene turia Qualified Code(s): N39.0 - Urinary tract infection, site not specified Condition: Stable Disposition: HOME, SELF-CARE Instructions: Abdominal Pain ([facility]), Antinausea Medication ([facility]), Cephalexin ([facility]), Rocephin ([facility]), Urinary Tract Infection ([facility]) Additional Instructions: Return immediately for any new or worsening symptoms: Persistent vomiting, fever, concerns about dehydration, worsening pain, any concerning new symptoms Followup with your primary care provider, call tomorrow to make a followup appointment Prescriptions: Cephalexin Monohydrate [Keflex 500 mg Capsule] 500 mg PO BID 4 Days #8 capsule Ondansetron [Zofran Odt 4 mg Tablet] 1 tab PO Q6H PRN #15 tab.rapdis PRN Reason: Forms: Return to Work Referrals: DARIEN CHIN MD [ACTIVE STAFF] - 06/09/20
--- NOTE | 2020-06-07 12:23 | RADIOLOGY REPORT (SQ) ---
EXAM DESCRIPTION: U/S NON OB PEL TV W/DOPPLER IMAGES COMPLETED DATE/TIME: 06/07/2020 12:09 pm REASON FOR STUDY: LMP May 05; mid lower abd pain; may be COMPARISON: 10/31/2019 TECHNIQUE: Dynamic and static grayscale images acquired of the pelvis via transvaginal approach and recorded on PACS. Additional selected color Doppler and spectral images recorded. LIMITATIONS: None. FINDINGS: UTERUS: Contour normal. No mass. ENDOMETRIAL STRIPE: No focal or generalized thickening. No masses. CERVIX: No nabothian cysts. RIGHT OVARY AND DOPPLER: Normal size. No worrisome masses. Normal arterial vascular flow without evid ence for torsion. LEFT OVARY AND DOPPLER: Normal size. No worrisome masses. Normal arterial vascular flow without evide nce for torsion. FREE FLUID: None noted. OTHER: No other significant finding. MEASUREMENTS: UTERUS: 9.4 x 5.8 x 5.2 cm ENDOMETRIAL STRIPE: 8.2 mm RIGHT OVARY: 2.6 x 1.5 x 1.8 cm LEFT OVARY: 2.8 x 3.1 x 1.9 cm IMPRESSION: Age-appropriate exam. TECHNICAL DOCUMENTATION: JOB ID: [id number] [place]-72 2010 [employer]- All Rights Reserved Rev-12/02 Reading location - IP/workstation name: [email or web address]
[2020-06-07] MEDS ORDERED: CEFTRIAXONE INJ 1000 MG VIAL IM ONE (12:37)
[2020-06-07] MEDS ORDERED: LIDOCAINE 1% INJ-PF (10 MG/ML) 30 ML SDV INJ ONE (12:37)
[2020-06-07 12:50] VITALS: BP 113/79
== END 2020-06-07 12:50 | disposition home or self-care (01) ==
LOC: ER 10:05
DX: N39.0 Urinary tract infection, site not specified (principal); R10.2 Pelvic and perineal pain; R11.2 Nausea with vomiting, unspecified; N89.8 Other specified noninflammatory disorders of vagina; N92.6 Irregular menstruation, unspecified; F17.200 Nicotine dependence, unspecified, uncomplicated; Z32.00 Encounter for pregnancy test, result unknown; Z88.2 Allergy status to sulfonamides
CPT/HCPCS: 99285; 96372; 36415; 87086; 84702; 85025; 87088; 80053; 81001; 76830; 93976; J3490 ×3; S0119; J0696